=== PATIENT | male | born 1970 | race African-American/Black ===

== ENCOUNTER 2018-03-11 12:09 | Inpatient (IN) | payer MEDICARE, MEDICAID ==
--- NOTE | 2018-03-04 14:51 | HP ---
HISTORY AND PHYSICAL: DATE OF ADMISSION: 03/11/18 DATE OF OFFICE VISIT: 03/03/18 SURGEON: Patt Medeiros MD.* (DICTATED BY KYLEE CHU) PROCEDURE: Right total hip arthroplasty. CHIEF COMPLAINT: Right hip pain. HISTORY OF PRESENT ILLNESS: Mr. Medina is a 47-year-old gentleman with chronic right hip pain. X-ray showed endstage osteoarthritis. He has elected to proceed with a right total hip arthroplasty, which is scheduled for 03/11/[address] Medeiros. PAST MEDICAL HISTORY: Hypertension, hypothyroidism, mitral valve insufficiency , seizure disorder, legally blind, history of an OR, high cholesterol. PAST SURGICAL HISTORY: Hernia repair, left hip hemiarthroplasty, thyroidectomy. CURRENT MEDICATIONS: 1. Ibuprofen 600 mg as needed every 6 hours. 2. Zonisamide 100 mg 3 tabs a day. 3. Synthroid 200 mcg daily. 4. Latanoprost eye drops. 5. Alphagan eye drops twice daily. 6. Dorzolamide HCl/timolol maleate 22.3/6.8 mg/mL 1 in both eyes twice a day. ALLERGIES: No known drug allergies. FAMILY HISTORY: Denies. SOCIAL HISTORY: This is a 47-year-old gentleman. He lives alone. He does not smoke, use drugs or alcohol. REVIEW OF SYSTEMS: A complete 14-point review of systems was reviewed with the patient, it was positive for hypothyroidism and a seizure disorder. He denies a history of DVT, PE, hepatitis, HIV, or anesthesia problems. PHYSICAL EXAMINATION GENERAL: He is well developed, well nourished, in no acute distress. VITAL SIGNS: He stands 5 feet 8 inches tall, weighs 196 pounds. Blood pressure is 100/60, his heart rate is 52. HEENT: Normocephalic, atraumatic. NECK: Supple. No palpable lymph nodes. PULMONARY: The lungs are clear to auscultation bilaterally. CARDIO: Regular rate and rhythm. Strong S1, S2. ABDOMEN: Soft, nontender, and nondistended. NEUROLOGICAL: He is alert and oriented x3. Cranial nerves II through XII are intact. MUSCULOSKELETAL: Right lower extremity, the skin is intact. There are no open wounds or abrasions. He walks with an antalgic type gait favoring his right hip. He has severely decreased internal and external rotation of the right hip. 4+/5 abductor strength. He has rotation without extreme pain. 2+ dorsalis pedis pulses, intact sensation. His lower extremity muscle group strengths are intact at 5/5. ASSESSMENT AND PLAN: Mr. Medina is a 47-year-old gentleman with severe endstage osteoarthritis of his right hip. He has failed conservative management , continues to have severe daily pain with difficulty ambulating. He has elected to proceed with a right total hip arthroplasty, which is scheduled for 03/11/[address] Medeiros discussed the risks and benefits of the surgery at today's visit and all of his questions were answered. He will see Dr. Medeiros back 2 weeks after the surgery. KYLEE CHU [id number]/[facility] #: [id number] MTDD
[~2018-03-11 12:09] MED LIST: Famotidine IV* 10 MG/ML 2 ML (20 mg) IV ONE; Gabapentin CAP(*) 300 MG PO ONE
--- OUTSIDE RECORDS SUMMARY | 2018-03-11 12:18 | XMS REPORT ---
:1970 External Reference #:[id number] Author Organization [facility] Address [address] [address] Phone [phone] Care Team Providers Name Role Phone Oracio Gee MD Primary Care Physician Unavailable Payers Type Date Identification Numbers Payment Provider Subscriber Medicare Primary Effective: Policy Number: Medicare Julius Medina 2013 [id number] PayID: [id number] [address] [place] [address] Medigap Part B Effective: 2013 Policy Number: Medicaid Julius Medina [id number] PayID: [id number] [address] [place] [address] Commercial Effective: Policy Number: [employer] Julius 2011 [id number] Medicaid Adam Expires: 2013 PayID: [id number] [address] [address] [place] [address] Problems Date Description Provider Status Onset: 07/25/2011 Postablative hypothyroidism Oracio Gee M.D. Active Onset: 07/25/2011 Hyperlipidemia Oracio Gee M.D. Active Onset: 07/25/2011 Depressive disorder Oracio Gee M.D. Active Onset: 01/20/2013 Tobacco user Oracio Gee M.D. Active Onset: 01/20/2013 Essential hypertension Oracio Gee M.D. Active Onset: 05/19/2013 Obesity Oracio Gee M.D. Active Onset: 03/23/2014 Relative impotence Grace Perez M.D. Active Note: multifactorial Onset: 03/23/2014 Osteoarthritis of knee Grace Perez M.D. Active Note: patellar arthritis Onset: 11/24/2014 Impotence of organic origin Oracio Gee M.D. Active Onset: 04/22/2015 Arthralgia of the lower leg Oracio Gee M.D. 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 Active Onset: 08/04/2015 Knee pain Feroz Sorto NP Active Onset: 05/18/2016 Hypothyroidism Oracio Gee M.D. Active Onset: 01/09/2017 Other seizures Veda Uriostegui MD Active Onset: 02/27/2017 Syncope and collapse Veda Uriostegui MD Active Onset: 06/19/2017 Arthralgia of the pelvic region and Veda Uriostegui MD Active thigh Onset: 01/15/2018 Mixed hyperlipidemia Oracio Gee M.D. Active Onset: 02/10/2018 Localized, primary osteoarthritis of Patt Medeiros M.D. 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 Cigarette Use currently smokes 1/2 Pack 30 pk yr Daily ETOH Use Occasionally consumes alcohol Recreational Drug Use 2007 Formerly used Cocaine regularly Smoking Patient is a current smoker, smokes every day Recreational Drug Use 2007 Formerly used Crack Cocaine regularly Smoking Light tobacco smoker (10 or fewer cigarettes/day) Daily Caffeine Consumes on average 3 cups of regular coffee per day Daily Caffeine Consumes on average 1 liter of iced tea per day Exercise Type/Frequency Exercises sporadically General Hx Text On Unemployment/now disabled Allergies, Adverse Reactions, Alerts Date Description Reaction Status Severity Comments 10/02/2010 NKDA active Medications Medication Date Status Form Strength Qnty SIG Indications Ordering Provider Zonisamide 10/22 Active Capsules 100mg 90cap 3 tablets per G40.89 s eveline Gee M.D. Synthroid 11/24 Active Tablets 200mcg 90tab once in in E89.0 s the morning Pachikara, in the empty M.D. stomach Ibuprofen 10/03 Active Tablets 600mg 90tab take one s tablet by Pachikara, mouth twice M.D. daily as needed for severe pain Latanoprost Active Solution 0.005% 1 gtt both [place], /0000 eyes q hs MD uJan Alphagan P Active Solution 0.1% 1 gtt both [place]o, /0000 eyes bid MD Juan Dorzolamide Active Solution 22.3-6.8m 1 gtt both Arleo, HCL/Timolol /0000 g/ml eyes bid MD Juan Maleate Metoprolol 05/31 Hx Tablets 25mg 30tab 1 by mouth Oracio Succinate ER 24HR s every day Marlen, - Pt states he M.D. 02/25 is not taking /2017 this. Atenolol 08/13 Hx Tablets 25mg 30tab 1 by mouth s every day Marlen, - M.D. 05/31 Xarelto 11/07 Hx Tablets 10mg 120ta 5 tabs q 24 bs hrs Ordering - Provider 12/25 Colace 11/07 Hx Capsules 100mg 60cap 1 by mouth s twice a day Ordering - prn Provider 12/25 constipation Percocet 11/07 Hx Tablets 5-325mg 45tab 1-2 by mouth s every 4 to 6 - hours as 12/25 needed pain (no longer taking) Viagra 07/27 Hx Tablets 100mg 15tab by mouth 0.5 s or 1 tab 1h Jazminika, - before M.D. 05/18 Cialis 11/24 Hx Tablets 5mg 30tab 1 tab by 607.84 s mouth daily Marlen, - M.D. 05/18 Atorvastatin 03/23 Hx Tablets 40mg 30tab 1 tab at E78.5 [place] s bedtime Marlen - M.D. 05/19 Synthroid 03/03 Hx Tablets 175mcg 90tab 1 by mouth 244.1 s every day Joe Perez M.D. 11/24 Atorvastatin 03/03 Hx Tablets 40mg 90tab 1 tab hs 272.4 Masha s Joe Castellanos M.D. 03/23 Cialis 03/03 Hx Tablets 5mg 30tab 1-2 tab by s mouth 1 hour Chris, - before M.DCesar 04/22 as needed Nicoderm CQ 01/20 Hx Patches 14mg/24HR 30uni once daily 305.1 24HR ts Marlen - M.Cindi 03/03 Nicorette 01/20 Hx Gum 4mg 120un upto 4 times 305.1 its daily prn Joe Gee M.Cindi 03/03 Cialis 01/20 Hx Tablets 5mg 30tab 1 by mouth 1 302.72 s hour before Marlen - intercourse M.DCesar 03/03 as needed Ibuprofen 01/20 Hx Tablets 600mg 45tab tid prn V76.44 s Marlen - M.DCesar 03/03 Fenofibrate 04/09 Hx Tablets 160mg 90tab once daily s Joe Perez M.D. 03/03 Tricor 04/08 Hx Tablets 145mg 90tab 1 po daily s Joe Perez M.D. 04/09 Cialis 04/08 Hx Tablets 5mg 30tab 1/2 tab 302.72 s before the Chris - sexual M.DCesar 01/20 activity Nicoderm CQ 03/19 Hx Patches 14mg/24HR 30uni once daily 305.1 24HR ts Joe Gee M.D. 04/08 Nicorelief 03/19 Hx Gum 2mg 120un q 2 hours prn 305.1 Joe Silverio M.D. 04/08 Viagra 03/19 Hx Tablets 100mg 10tab use as 302.72 s directed Joe Gee M.D. 04/08 Cialis 03/19 Hx Tablets 5mg 1 by mouth 1 hour before Joe Gee intercourse M.DCesar 03/03 as needed Cialis 12/17 Hx Tablets 10mg 6tabs qd prn Joe Gee M.D. 03/19 Viagra 07/25 Hx Tablets 100mg 6tabs use as 302.72 directed Joe Gee M.D. 12/17 Mobic 05/09 Hx Tablets 15mg 30tab once daily 717.2 s Joe Gee M.D. 07/25 Zoloft 04/11 Hx Tablets 100mg 30tab 1/ tab daily 311 s for 1 week Marlen, - and then 1 po M.DCesar 07/28 Levothyroxine 03/08 Hx Tablets 150mcg 30tab 1 po qd Annie Joe Delatorre M.D. 03/03 Multi Vitamin 01/25 Hx Tablets 30tab 1 po qd Joe Ortez M.D. 04/08 Synthroid 01/18 Hx Tablets 125mcg 30tab 1 po qd Joe Ortez M.D. 03/08 Synthroid 01/11 Hx Tablets 100mcg 30tab 1 po qd Joe Torres M.D. 01/18 Cialis 01/10 Hx Tablets 20mg 10tab as directed 302.72 Joe Ortez M.D. 07/25 Nicoderm CQ 01/10 Hx Patches 14mg/24HR 30uni once daily 305.1 24HR ts Joe Gee M.D. 07/25 Synthroid 10/02 Hx Tablets 75mcg 30tab 1 po qd 244.1 Sanjiv E. Joe Torres M.D. 01/11 Immunizations CPT Code Status Date Vaccine Lot # [id number] Given 05/18/2016 Pneumonia Vaccine [id number] Given 08/04/2015 Influenza Virus Vaccine, Quadrivalent, Split, [id number] Preservative Free Vital Signs Date Vital Result Comment 03/03/2018 Height 68.5 inches 5'8.50" Weight 186.00 lb Heart Rate 52 /min BP Systolic 100 mmHg BP Diastolic 60 mmHg BMI (Body Mass Index) 27.9 kg/m2 02/27/2018 Height 68.5 inches 5'8.50" Weight 184.00 lb w/shoes Heart Rate 74 /min BP Systolic Sitting 110 mmHg Lue BP Diastolic Sitting 56 mmHg Lue Respiratory Rate 14 /min BMI (Body Mass Index) 27.6 kg/m2 Ejection Fraction 50-55% as of 02/2018 echo 02/26/2018 Height 68.5 inches 5'8.50" Weight 184.12 lb Heart Rate 74 /min BP Systolic 118 mmHg BP Diastolic 64 mmHg BMI (Body Mass Index) 27.6 kg/m2 02/20/2018 Height 68.5 inches 5'8.50" Weight 182.00 lb Heart Rate 76 /min BP Systolic 122 mmHg BP Diastolic 78 mmHg O2 % BldC Oximetry 97 % BMI (Body Mass Index) 27.3 kg/m2 02/10/2018 Height 68.5 inches 5'8.50" Weight 182.00 lb Heart Rate 64 /min BP Systolic 118 mmHg BP Diastolic 70 mmHg BMI (Body Mass Index) 27.3 kg/m2 01/29/2018 Weight 181.00 lb Heart Rate 63 /min BP Systolic 128 mmHg BP Diastolic 76 mmHg Body Temperature 96.4 F O2 % BldC Oximetry 98 % 01/15/2018 Height 68 inches 5'8" Weight 181.00 lb Heart Rate 63 /min BP Systolic Sitting 128 mmHg BP Diastolic Sitting 72 mmHg O2 % BldC Oximetry 98 % BMI (Body Mass Index) 27.5 kg/m2 10/22/2017 Height 68 inches 5'8" Weight 184.00 lb Heart Rate 64 /min BP Systolic 130 mmHg BP Diastolic 74 mmHg BMI (Body Mass Index) 28.0 kg/m2 07/10/2017 Height 68 inches 5'8" Weight 185.00 lb with shoes Heart Rate 56 /min BP Systolic 120 mmHg BP Diastolic 80 mmHg O2 % BldC Oximetry 98 % BMI (Body Mass Index) 28.1 kg/m2 06/19/2017 Height 68 inches 5'8" Weight 189.00 lb Heart Rate 76 /min BP Systolic Sitting 130 mmHg BP Diastolic Sitting 80 mmHg BMI (Body Mass Index) 28.7 kg/m2 05/29/2017 Height 68 inches 5'8" Weight 187.00 lb Heart Rate 71 /min BP Systolic 130 mmHg BP Diastolic 68 mmHg Body Temperature 97.1 F O2 % BldC Oximetry 98 % BMI (Body Mass Index) 28.4 kg/m2 02/27/2017 Height 68 inches 5'8" Weight 188.00 lb Heart Rate 68 /min BP Systolic Sitting 108 mmHg BP Diastolic Sitting 72 mmHg Respiratory Rate 14 /min BMI (Body Mass Index) 28.6 kg/m2 01/09/2017 Height 68 inches 5'8" Weight 188.00 lb Heart Rate 68 /min BP Systolic 114 mmHg BP Diastolic 68 mmHg Respiratory Rate 16 /min Pain Level 7 BMI (Body Mass Index) 28.6 kg/m2 01/01/2017 Height 68 inches 5'8" Weight 188.25 lb w/shoes Heart Rate 62 /min BP Systolic Sitting 138 mmHg LA reg cuff BP Diastolic Sitting 90 mmHg LA reg cuff BMI (Body Mass Index) 28.6 kg/m2 Ejection Fraction 50-55% Echo 07/11/16 12/19/2016 Weight 185.00 lb with shoes Heart Rate 56 /min BP Systolic 118 mmHg BP Diastolic 74 mmHg O2 % BldC Oximetry 96 % 08/13/2016 Height 68 inches 5'8" Weight 198.00 lb w/shoes Heart Rate 66 /min BP Systolic Sitting 122 mmHg LA reg cuff BP Diastolic Sitting 84 mmHg LA reg cuff BMI (Body Mass Index) 30.1 kg/m2 Ejection Fraction 50-55% Echo 07/11/16 08/08/2016 Height 68 inches 5'8" Weight 188.00 lb Heart Rate 57 /min BP Systolic 107 mmHg BP Diastolic 59 mmHg Body Temperature 97.2 F O2 % BldC Oximetry 98 % BMI (Body Mass Index) 28.6 kg/m2 05/18/2016 Height 68 inches 5'8" Weight 183.00 lb Heart Rate 55 /min BP Systolic Sitting 110 mmHg BP Diastolic Sitting 64 mmHg Body Temperature 97.7 F O2 % BldC Oximetry 98 % BMI (Body Mass Index) 27.8 kg/m2 12/27/2015 Height 68 inches 5'8" Weight 187.00 lb w/shoes Heart Rate 70 /min BP Systolic Sitting 122 mmHg LA reg cuff BP Diastolic Sitting 82 mmHg LA reg cuff BMI (Body Mass Index) 28.4 kg/m2 12/23/2015 Height 68 inches 5'8" Weight 183.00 lb Heart Rate 78 /min BP Systolic 100 mmHg BP Diastolic 70 mmHg Body Temperature 97.5 F O2 % BldC Oximetry 98 % BMI (Body Mass Index) 27.8 kg/m2 12/14/2015 Height 68 inches 5'8" Weight 186.00 lb Heart Rate 69 /min BP Systolic 108 mmHg BP Diastolic 58 mmHg Body Temperature 97.6 F O2 % BldC Oximetry 99 % BMI (Body Mass Index) 28.3 kg/m2 08/04/2015 Height 68 inches 5'8" Weight 203.00 lb Heart Rate 60 /min BP Systolic Sitting 138 mmHg BP Diastolic Sitting 86 mmHg Body Temperature 97.8 F O2 % BldC Oximetry 98 % BMI (Body Mass Index) 30.9 kg/m2 07/27/2015 Height 68 inches 5'8" Weight 203.00 lb Heart Rate 58 /min BP Systolic Sitting 128 mmHg BP Diastolic Sitting 80 mmHg Respiratory Rate 13 /min Body Temperature 98.0 F O2 % BldC Oximetry 97 % BMI (Body Mass Index) 30.9 kg/m2 04/22/2015 Height 68 inches 5'8" Weight 200.00 lb Heart Rate 70 /min BP Systolic Sitting 128 mmHg BP Diastolic Sitting 80 mmHg Body Temperature 98.7 F O2 % BldC Oximetry 98 % BMI (Body Mass Index) 30.4 kg/m2 11/24/2014 Height 68 inches 5'8" Weight 201.00 lb Heart Rate 54 /min BP Systolic Standing 120 mmHg BP Diastolic Standing 78 mmHg O2 % BldC Oximetry 98 % BMI (Body Mass Index) 30.6 kg/m2 03/23/2014 Height 68 inches 5'8" Weight 196.00 lb Heart Rate 64 /min BP Systolic Sitting 110 mmHg BP Diastolic Sitting 68 mmHg BMI (Body Mass Index) 29.8 kg/m2 05/19/2013 Height 68 inches 5'8" Weight 213.25 lb Heart Rate 70 /min BP Systolic Sitting 120 mmHg BP Diastolic Sitting 82 mmHg O2 % BldC Oximetry 96 % BMI (Body Mass Index) 32.4 kg/m2 03/03/2013 Height 68 inches 5'8" Weight 212.00 lb Heart Rate 76 /min BP Systolic 122 mmHg BP Diastolic 92 mmHg BMI (Body Mass Index) 32.2 kg/m2 03/03/2013 Weight 212.00 lb Heart Rate 76 /min BP Systolic Sitting 160 mmHg BP Diastolic Sitting 120 mmHg 01/20/2013 Weight 211.00 lb Heart Rate 78 /min BP Systolic Sitting 158 mmHg BP Diastolic Sitting 102 mmHg 04/08/2012 Height 68 inches 5'8" Weight 191.00 lb Heart Rate 68 /min BP Systolic Sitting 130 mmHg BP Diastolic Sitting 92 mmHg BMI (Body Mass Index) 29.0 kg/m2 03/19/2012 Height 68 inches 5'8" Weight 193.00 lb Heart Rate 72 /min BP Systolic Sitting 112 mmHg BP Diastolic Sitting 70 mmHg BMI (Body Mass Index) 29.3 kg/m2 12/18/2011 Height 68 inches 5'8" Weight 189.00 lb Heart Rate 60 /min BP Systolic Sitting 112 mmHg L BP Diastolic Sitting 72 mmHg L BMI (Body Mass Index) 28.7 kg/m2 07/25/2011 Height 68 inches 5'8" Weight 189.00 lb Heart Rate 72 /min BP Systolic 130 mmHg BP Diastolic 70 mmHg BMI (Body Mass Index) 28.7 kg/m2 06/08/2011 Height 68 inches 5'8" Weight 192.00 lb Heart Rate 54 /min BP Systolic 118 mmHg BP Diastolic 73 mmHg BMI (Body Mass Index) 29.2 kg/m2 05/09/2011 Weight 188.00 lb Heart Rate 62 /min BP Systolic Sitting 148 mmHg BP Diastolic Sitting 72 mmHg 04/11/2011 Weight 191.00 lb Heart Rate 68 /min BP Systolic Sitting 126 mmHg BP Diastolic Sitting 84 mmHg 01/10/2011 Height 69 inches 5'9" Weight 191.00 lb Heart Rate 66 /min BP Systolic Sitting 110 mmHg BP Diastolic Sitting 76 mmHg BMI (Body Mass Index) 28.2 kg/m2 12/20/2010 Height 67 inches 5'7" Weight 195.00 lb Heart Rate 80 /min BP Systolic Sitting 122 mmHg BP Diastolic Sitting 60 mmHg BMI (Body Mass Index) 30.5 kg/m2 10/02/2010 Height 67 inches 5'7" Weight 185.00 lb Heart Rate 56 /min BP Systolic Sitting 122 mmHg BP Diastolic Sitting 78 mmHg O2 % BldC Oximetry 98 % BMI (Body Mass Index) 29.0 kg/m2 Results Test Date Test Result H/L Range Note Comp Metabolic Panel 02/25/2018 Sodium 139 mmol/L 139-145 Potassium 4.0 mmol/L 3.5-5.0 Chloride 110 mmol/L 101-111 Co2 Carbon Dioxide 24 mmol/L 22-32 Anion Gap 5 mmol/L 2-11 Glucose 93 mg/dL 70-100 Blood Urea Nitrogen 13 mg/dL 6-24 Creatinine 1.36 mg/dL High 0.67-1.17 BUN/Creatinine Ratio 9.6 8-20 Calcium 8.9 mg/dL 8.6-10.3 Total Protein 6.7 g/dL 6.4-8.9 Albumin 4.0 g/dL 3.2-5.2 Globulin 2.7 g/dL 2-4 Albumin/Globulin Ratio 1.5 1-3 Total Bilirubin 0.40 mg/dL 0.2-1.0 Alkaline Phosphatase 80 U/L 34-104 Alt 10 U/L 7-52 Ast 13 U/L 13-39 Egfr Non- 55.7 >60 Egfr 71.6 >60 1 Laboratory test finding 02/25/2018 TSH (Thyroid Stim Horm) 2.88 mcIU/mL 0.34-5.60 Lipid Profile 01/15/2018 Triglycerides 64 mg/dL 2 (Trig/Chol/HDL) Cholesterol 231 mg/dL 3 HDL Cholesterol 62.4 mg/dL 4 LDL Cholesterol 156 mg/dL 5 Comp Metabolic Panel 01/15/2018 Sodium 139 mmol/L 139-145 Potassium 4.0 mmol/L 3.5-5.0 Chloride 106 mmol/L 101-111 Co2 Carbon Dioxide 27 mmol/L 22-32 Anion Gap 6 mmol/L 2-11 Glucose 90 mg/dL 70-100 Blood Urea Nitrogen 20 mg/dL 6-24 Creatinine 1.23 mg/dL High 0.67-1.17 BUN/Creatinine Ratio 16.3 8-20 Calcium 9.5 mg/dL 8.6-10.3 Total Protein 7.4 g/dL 6.4-8.9 Albumin 4.4 g/dL 3.2-5.2 Globulin 3.0 g/dL 2-4 Albumin/Globulin Ratio 1.5 1-3 Total Bilirubin 0.80 mg/dL 0.2-1.0 Alkaline Phosphatase 84 U/L 34-104 Alt 10 U/L 7-52 Ast 13 U/L 13-39 Egfr Non- 62.5 >60 Egfr 80.4 >60 6 Laboratory test 01/15/2018 TSH (Thyroid Stim Horm) 3.58 mcIU/mL 0.34- 5.60 finding Lipid Profile 05/29/2017 Triglycerides 81 mg/dL 7, 8 (Trig/Chol/HDL) Cholesterol 231 mg/dL 7, 9 HDL Cholesterol 59.5 mg/dL 7, 10 LDL Cholesterol 155 mg/dL 7, 11 Comp Metabolic Panel 05/29/2017 Sodium 139 mmol/L 133-145 7 Potassium 4.1 mmol/L 3.5-5.0 7 Chloride 105 mmol/L 101-111 7 Co2 Carbon Dioxide 30 mmol/L 22-32 7 Anion Gap 4 mmol/L 2-11 7 Glucose 80 mg/dL 70-100 7 Blood Urea Nitrogen 12 mg/dL 6-24 7 Creatinine 1.27 mg/dL High 0.67-1.17 7 BUN/Creatinine Ratio 9.4 8-20 7 Calcium 9.1 mg/dL 8.6-10.3 7 Total Protein 7.2 g/dL 6.4-8.9 7 Albumin 4.3 g/dL 3.2-5.2 7 Globulin 2.9 g/dL 2-4 7 Albumin/Globulin Ratio 1.5 1-3 7 Total Bilirubin 0.80 mg/dL 0.2-1.0 7 Alkaline Phosphatase 89 U/L 34-104 7 Alt 14 U/L 7-52 7 Ast 16 U/L 13-39 7 Egfr Non- 60.3 >60 7 Egfr 77.5 >60 7, 12 Laboratory test 05/29/2017 TSH (Thyroid Stim 3.33 mcIU/mL 0.34-5.60 7, 13 finding Horm) Lipid Profile 12/19/2016 Triglycerides 50 mg/dL 14, 15 (Trig/Chol/HDL) Cholesterol 230 mg/dL 14, 16 HDL Cholesterol 53.8 mg/dL 14, 17 LDL Cholesterol 166 mg/dL 14, 18 Comp Metabolic Panel 12/19/2016 Sodium 138 mmol/L 133-145 14 Potassium 4.3 mmol/L 3.5-5.0 14 Chloride 107 mmol/L 101-111 14 Co2 Carbon Dioxide 27 mmol/L 22-32 14 Anion Gap 4 mmol/L 2-11 14 Glucose 87 mg/dL 70-100 14 Blood Urea Nitrogen 14 mg/dL 6-24 14 Creatinine 1.30 mg/dL High 0.67-1.17 14 BUN/Creatinine Ratio 10.8 8-20 14 Calcium 9.1 mg/dL 8.6-10.3 14 Total Protein 6.9 g/dL 6.4-8.9 14 Albumin 4.2 g/dL 3.2-5.2 14 Globulin 2.7 g/dL 2-4 14 Albumin/Globulin Ratio 1.6 1-3 14 Total Bilirubin 0.50 mg/dL 0.2-1.0 14 Alkaline Phosphatase 83 U/L 34-104 14 Alt 12 U/L 7-52 14 Ast 15 U/L 13-39 14 Egfr Non- 58.9 >60 14 Egfr 75.8 >60 14, 19 Laboratory test 12/19/2016 TSH (Thyroid Stim 3.45 mcIU/mL 0.34-5.60 14, 20 finding Horm) Lipid Profile 08/08/2016 Triglycerides 75 mg/dL 21, 22 (Trig/Chol/HDL) Cholesterol 238 mg/dL 21, 23 HDL Cholesterol 58.9 mg/dL 21, 24 LDL Cholesterol 164 mg/dL 21, 25 Comp Metabolic Panel 05/18/2016 Sodium 138 mmol/L 133-145 26 Potassium 3.9 mmol/L 3.5-5.0 26 Chloride 106 mmol/L 101-111 26 Co2 Carbon Dioxide 26 mmol/L 22-32 26 Anion Gap 6 mmol/L 2-11 26 Glucose 87 mg/dL 70-100 26 Blood Urea Nitrogen 18 mg/dL 6-24 26 Creatinine 1.22 mg/dL High 0.67-1.17 26 BUN/Creatinine Ratio 14.8 8-20 26 Calcium 8.7 mg/dL 8.6-10.3 26 Total Protein 6.7 g/dL 6.4-8.9 26 Albumin 4.0 g/dL 3.2-5.2 26 Globulin 2.7 g/dL 2-4 26 Albumin/Globulin Ratio 1.5 1-3 26 Total Bilirubin 0.80 mg/dL 0.2-1.0 26 Alkaline Phosphatase 79 U/L 34-104 26 Alt 13 U/L 7-52 26 Ast 24 U/L 13-39 26 Egfr Non- 63.4 >60 26 Egfr 81.5 >60 26, 27 Lipid Profile (Trig/Chol/HDL) 05/18/2016 Triglycerides 82 mg/dL 26, 28 Cholesterol 222 mg/dL 26, 29 HDL Cholesterol 56.9 mg/dL 26, 30 LDL Cholesterol 149 mg/dL 26, 31 Laboratory test 05/18/2016 TSH (Thyroid Stim 6.71 mcIU/mL High 0.34-5.60 26, 32 finding Horm) PSA Screening 2.269 ng/mL 0-4.000 26, 33 CBC Auto Diff 02/08/2016 White Blood Count 4.0 10^3/uL 3.5-10.8 Red Blood Count 4.24 10^6/uL 4.0-5.4 Hemoglobin 13.1 g/dL Low 14.0-18.0 Hematocrit 40 % Low 42-52 Mean Corpuscular Volume 94 fL 80-94 Mean Corpuscular Hemoglobin 31 pg 27-31 Mean Corpuscular HGB Conc 33 g/dL 31-36 Red Cell Distribution Width 15 % 10.5-15 Platelet Count 210 10^3/uL 150-450 Mean Platelet Volume 8 um3 7.4-10.4 Abs Neutrophils 2.9 10^3/uL 1.5-7.7 Abs Lymphocytes 0.6 10^3/uL Low 1.0-4.8 Abs Monocytes 0.3 10^3/uL 0-0.8 Abs Eosinophils 0.1 10^3/uL 0-0.6 Abs Basophils 0.1 10^3/uL 0-0.2 Abs Nucleated RBC 0 10^3/uL Granulocyte % 73.6 % 38-83 Lymphocyte % 14.5 % Low 25-47 Monocyte % 8.2 % 1-9 Eosinophil % 1.5 % 0-6 Basophil % 2.2 % High 0-2 Nucleated Red Blood Cells % 0.1 Laboratory test finding 02/08/2016 Troponin-I (TnI) 0.01 ng/mL <0.03 34 CKMB 02/08/2016 CKMB ng/mL 1.6 ng/mL 0.6-6.3 Comp Metabolic Panel 02/08/2016 Sodium 135 mmol/L 133-145 Potassium 4.0 mmol/L 3.5-5.0 Chloride 105 mmol/L 101-111 Co2 Carbon Dioxide 22 mmol/L 22-32 Anion Gap 8 mmol/L 2-11 Glucose 104 mg/dL High 70-100 Blood Urea Nitrogen 12 mg/dL 6-24 Creatinine 1.22 mg/dL High 0.67-1.17 BUN/Creatinine Ratio 9.8 8-20 Calcium 9.5 mg/dL 8.6-10.3 Total Protein 7.7 g/dL 6.4-8.9 Albumin 4.5 g/dL 3.2-5.2 Globulin 3.2 g/dL 2-4 Albumin/Globulin Ratio 1.4 1-3 Total Bilirubin 0.60 mg/dL 0.2-1.0 Alkaline Phosphatase 100 U/L 34-104 Alt 11 U/L 7-52 Ast 14 U/L 13-39 Egfr Non- 63.7 >60 Egfr 81.9 >60 35 Laboratory test finding 02/08/2016 Creatine Kinase(CK) 96 U/L 10-223 Inr/Protime 02/08/2016 Inr 1.02 0.89-1.11 Laboratory test finding 02/08/2016 Partial Thrombo Time 24.0 seconds Low 26.0-36.3 PTT Lactic Acid 3.2 mmol/L High 0.5-2.0 36 Comp Metabolic Panel 12/16/2015 Sodium 136 mmol/L 133-145 37 Potassium 4.1 mmol/L 3.5-5.0 37 Chloride 105 mmol/L 101-111 37 Co2 Carbon Dioxide 27 mmol/L 22-32 37 Anion Gap 4 mmol/L 2-11 37 Glucose 88 mg/dL 70-100 37 Blood Urea Nitrogen 10 mg/dL 6-24 37 Creatinine 1.11 mg/dL 0.67-1.17 37 BUN/Creatinine Ratio 9.0 8-20 37 Calcium 9.2 mg/dL 8.6-10.3 37 Total Protein 6.9 g/dL 6.4-8.9 37 Albumin 4.1 g/dL 3.2-5.2 37 Globulin 2.8 g/dL 2-4 37 Albumin/Globulin Ratio 1.5 1-3 37 Total Bilirubin 0.70 mg/dL 0.2-1.0 37 Alkaline Phosphatase 130 U/L High 34-104 37 Alt 12 U/L 7-52 37 Ast 14 U/L 13-39 37 Egfr Non- 71.0 >60 37 Egfr 91.3 >60 37, 38 Lipid Profile (Trig/Chol/HDL) 12/16/2015 Triglycerides 101 mg/dL 37, 39 Cholesterol 216 mg/dL 37, 40 HDL Cholesterol 49.5 mg/dL 37, 41 LDL Cholesterol 146 mg/dL 37, 42 Laboratory test 12/16/2015 TSH (Thyroid Stim 6.89 ?IU/mL High 0.34-5.60 37, 43 finding Horm) Comp Metabolic Panel 07/27/2015 Sodium 137 mmol/L 133-145 Potassium 4.1 mmol/L 3.5-5.0 Chloride 106 mmol/L 101-111 Co2 Carbon Dioxide 28 mmol/L 22-32 Anion Gap 3 mmol/L 2-11 Glucose 87 mg/dL 70-100 Blood Urea Nitrogen 14 mg/dL 6-24 Creatinine 1.23 mg/dL High 0.67-1.17 BUN/Creatinine Ratio 11.4 8-20 Calcium 9.2 mg/dL 8.6-10.3 Total Protein 7.1 g/dL 6.4-8.9 Albumin 4.4 g/dL 3.2-5.2 Globulin 2.7 g/dL 2-4 Albumin/Globulin Ratio 1.6 1-3 Total Bilirubin 0.80 mg/dL 0.2-1.0 Alkaline Phosphatase 92 U/L 34-104 Alt 16 U/L 7-52 Ast 17 U/L 13-39 Egfr Non- 63.1 >60 Egfr 81.1 >60 44 Lipid Profile (Trig/Chol/HDL) 07/27/2015 Triglycerides 77 mg/dL 45 Cholesterol 239 mg/dL 46 HDL Cholesterol 55.2 mg/dL 47 LDL Cholesterol 168 mg/dL 48 Laboratory test finding 07/27/2015 TSH (Thyroid Stim Horm) 2.77 ?IU/mL 0.34-5.60 Comp Metabolic Panel 04/19/2015 Sodium 136 mmol/L 133-145 Potassium 3.9 mmol/L 3.5-5.0 Chloride 106 mmol/L 101-111 Co2 Carbon Dioxide 25 mmol/L 22-32 Anion Gap 5 mmol/L 2-11 Glucose 91 mg/dL 70-100 Blood Urea Nitrogen 10 mg/dL 6-24 Creatinine 1.17 mg/dL 0.67-1.17 BUN/Creatinine Ratio 8.5 8-20 Calcium 9.0 mg/dL 8.6-10.3 Total Protein 7.1 g/dL 6.4-8.9 Albumin 4.3 g/dL 3.2-5.2 Globulin 2.8 g/dL 2-4 Albumin/Globulin Ratio 1.5 1-3 Total Bilirubin 0.70 mg/dL 0.2-1.0 Alkaline Phosphatase 90 U/L 34-104 Alt 14 U/L 7-52 Ast 16 U/L 13-39 Egfr Non- 66.8 >60 Egfr 85.9 >60 49 Lipid Profile (Trig/Chol/HDL) 04/19/2015 Triglycerides 77 mg/dL 50 Cholesterol 228 mg/dL 51 HDL Cholesterol 58.6 mg/dL 52 LDL Cholesterol 154 mg/dL 53 Laboratory test 11/15/2014 TSH (Thyroid 6.60 IU/mL High 0.34-5.60 37, 54 finding Stimulating Horm) Comp Metabolic Panel 11/15/2014 Sodium 137 mmol/L 133-145 37 Potassium 3.9 mmol/L 3.5-5.0 37 Chloride 106 mmol/L 101-111 37 Co2 Carbon Dioxide 25 mmol/L 22-32 37 Anion Gap 6 mmol/L 2-11 37 Glucose 88 mg/dL 70-100 37 Blood Urea Nitrogen 8 mg/dL 6-24 37 Creatinine 1.24 mg/dL High 0.67-1.17 37 BUN/Creatinine Ratio 6.5 Low 8-20 37 Calcium 9.0 mg/dL 8.6-10.3 37 Total Protein 6.8 g/dL 6.4-8.9 37 Albumin 4.2 g/dL 3.2-5.2 37 Globulin 2.6 g/dL 2-4 37 Albumin/Globulin Ratio 1.6 1-3 37 Total Bilirubin 0.80 mg/dL 0.2-1.0 37 Alkaline Phosphatase 94 U/L 34-104 37 Alt 12 U/L 7-52 37 Ast 16 U/L 13-39 37 Egfr Non- 62.8 >60 37 Egfr 80.7 >60 37, 55 Lipid Profile (Trig/Chol/HDL) 11/15/2014 Triglycerides 79 mg/dL 37, 56 Cholesterol 235 mg/dL 37, 57 HDL Cholesterol 55.4 mg/dL 37, 58 LDL Cholesterol 164 mg/dL 37, 59 Laboratory test 11/15/2014 PSA Screening 2.348 ng/mL 0-4.000 37, 60 finding Laboratory test 03/23/2014 TSH (Thyroid 6.12 IU/mL High 0.34-5.60 finding Stimulating Horm) T4 9.26 g/dL 6.09-12.23 Free T3 2.50 pg/mL 2.5-3.9 Comp Metabolic Panel 05/19/2013 Sodium 139 mmol/L 133-145 Potassium 4.1 mmol/L 3.5-5.0 Chloride 104 mmol/L 101-111 Co2 Carbon Dioxide 28.0 mmol/L 22-32 Anion Gap 7.0 mmol/L 2-11 Glucose 86 mg/dL 70-100 Blood Urea Nitrogen 8 mg/dL 6-24 Creatinine 1.30 mg/dL 0.50-1.40 BUN/Creatinine Ratio 6.2 Low 8-20 Calcium 9.6 mg/dL 8.1-9.9 Total Protein 6.9 g/dL 6.2-8.1 Albumin 4.3 g/dL 3.6-5.4 Globulin 2.6 g/dL 2-4 Albumin/Globulin Ratio 1.7 1-3 Total Bilirubin 1.1 mg/dL 0.4-1.5 Alkaline Phosphatase 100 U/L 30-110 Alt 20 U/L 14-54 Ast 18 U/L 12-42 Egfr Non- 59.7 >60 Egfr 76.8 >60 61 Lipid Profile (Trig/Chol/HDL) 05/19/2013 Triglycerides 98 mg/dL 40-200 Cholesterol 275 mg/dL High Less than 200 HDL Cholesterol 56 mg/dL 40-60 62 Cholesterol/HDL Ratio 4.9 Average High 1-4.44 LDL Cholesterol 199.4 High Less Than 100 63 Laboratory test 05/19/2013 TSH (Thyroid Stimulating 5.24 miu/mL 0.34- 5.60 finding Horm) Laboratory test 02/06/2013 TSH (Thyroid Stimulating 5.32 miu/mL 0.34- 5.60 64 finding Horm) Lipid Profile 02/06/2013 Triglycerides 112 mg/dL 40-200 (Trig/Chol/HDL) Cholesterol 293 mg/dL High Less than 200 HDL Cholesterol 52 mg/dL 40-60 65 Cholesterol/HDL Ratio 5.6 Average High 1-4.44 LDL Cholesterol 218.6 mg/dL High Less Than 100 66 Laboratory test finding 02/06/2013 PSA Screening 2.1 ng/mL 0-4.0 67 Comp Metabolic Panel 02/06/2013 Sodium 137 mmol/L 133-145 Potassium 4.2 mmol/L 3.5-5.0 Chloride 102 mmol/L 101-111 Co2 Carbon Dioxide 29.0 mmol/L 22-32 Anion Gap 6.0 mmol/L 2-11 Glucose 90 mg/dL 70-100 Blood Urea Nitrogen 10 mg/dL 6-24 Creatinine 1.40 mg/dL 0.50-1.40 BUN/Creatinine Ratio 7.1 Low 8-20 Calcium 9.6 mg/dL 8.1-9.9 Total Protein 6.6 g/dL 6.2-8.1 Albumin 4.2 g/dL 3.6-5.4 Globulin 2.4 g/dL 2-4 Albumin/Globulin Ratio 1.8 1-3 Total Bilirubin 1.3 mg/dL 0.4-1.5 Alkaline Phosphatase 100 U/L 30-110 Alt 26 U/L 14-54 Ast 22 U/L 12-42 Egfr Non- 55.1 >60 Egfr 70.8 >60 68 FSH And LH 04/08/2012 FSH 2.26 MIU/ML 69 Lutenizing Hormone 3.51 MIU/ML 70 Laboratory test finding 04/08/2012 Prolactin 6.01 NG/ML 1.0-20.0 TSH 3.77 MIU/ML 0.34-5.60 Thyroxine Free 1.09 ng/dL 0.61-1.24 Testosterone Free & Total 04/08/2012 Free Testosterone 19 ng/dL 9-30 71 Testosterone, Total Bioavail 04/08/2012 Total Testosterone 762 ng/dL 240- 950 72 Bioavailable Testosterone 175 ng/dL 61-213 73 Lipid Profile (Trig/Chol/HDL) 03/19/2012 Triglyceride 73 mg/dL 40-200 Cholesterol 252 mg/dL High Less Than 200 74 High Density Lipoprotein 55 mg/dL 40-60 75 Cholesterol/HDL Ratio 4.58 AVERAGE 1-4.97 Low Density Lipoprotein 182 mg/dL High Less Than 100 76 Testosterone Free & Total 03/19/2012 Free Testosterone 37 ng/dL 9-30 77 Total Testosterone 1010 ng/dL 240-950 78 Laboratory test finding 12/18/2011 TSH 3.44 MIU/ML 0.34-5.60 Lipid Panel - [facility] 12/18/2011 CPK (Creatine Kinase) 91 U/L 0-200 Comp Metabolic Panel 12/18/2011 Sodium 137 mmol/L 135-145 Potassium 4.6 mmol/L 3.5-5.0 Chloride 101 mmol/L 101-111 Co2 (Carbon Dioxide) 30.0 mmol/L 22-32 Anion Gap 6.0 mmol/L 2-11 79 Glucose 82 mg/dL 70-100 BUN 11 mg/dL 6-24 Creatinine 1.3 mg/dL 0.50-1.40 One Over Creatinine 0.76 BUN/Creatinine Ratio 8.5 8-20 Calcium 9.1 mg/dL 8.1-9.9 Total Protein 7.1 GM/DL 6.2-8.1 Albumin 4.2 GM/DL 3.6-5.4 Globulin 2.9 GM/DL 2-4 Albumin/Globulin Ratio 1.4 1-3 Bilirubin Total 1.0 mg/dL 0.4-1.5 80 Alkaline Phosphatase 90 U/L 39-117 Alt (SGPT) 30 U/L 17-63 Ast (Sgot) 25 U/L 12-42 eGFR Non- 60.2 > 60 eGFR 77.5 > 60 81 Laboratory test finding 12/18/2011 Lipase 32 U/L 22-51 Laboratory test finding 04/11/2011 Thyroxine Free 1.19 ng/dL 0.61-1.24 TSH 4.01 MIU/ML 0.34-5.60 Lipid Profile (Trig/Chol/HDL) 03/07/2011 Triglyceride 90 mg/dL 40-200 Cholesterol 222 mg/dL High Less Than 200 82 High Density Lipoprotein 55 mg/dL 40-60 83 Cholesterol/HDL Ratio 4.04 AVERAGE 1-4.97 Low Density Lipoprotein 149 mg/dL High Less Than 100 84 Laboratory test finding 03/07/2011 TSH 7.21 MIU/ML High 0.34-5.60 Thyroxine Free 1.13 ng/dL 0.61-1.24 Laboratory test finding 01/10/2011 TSH 13.70 MIU/ML High 0.34-5.60 CBC Auto Diff 01/10/2011 White Blood Count 3.8 CUMM Low 4.8-10.8 Red Cell Count 4.51 CUMM Low 4.6-6.2 Hemoglobin 14.7 g/dL 14.0-18.0 Hematocrit 43 % 42-52 Mean Corpuscular Volume 96 um3 High 80-94 Mean Corpuscular Hemoglob 33 pg High 27-31 Mean Corpuscular HGB Cone 34 g/dL 32-36 Redcell Distribution WDTH 14 % 10.5-15 Platelet Count 190 CUMM 150-450 Mean Platelet Volume 9.4 um3 7.4-10.4 Gran % 47.1 % 38-83 Lymph % 39.2 % 25-47 Mononuclear % 10.7 % High 1-9 Eosinophil % 2.1 % 0-6 Basophil % 0.9 % 0-2 Abs Lymphs 1.5 1.0-4.8 Abs Mononuclear 0.4 0-0.8 Absolute Neutrophil Count 1.8 1.5-7.7 Abs Eosinophils 0.1 0-0.6 Abs Basophils 0 0-0.2 Iron & Iron Binding Capacity 01/02/2011 Iron Total 72 g/dL 45-182 Unsaturated Iron Binding 237 g/dL Total Iron Binding Capacity 309 g/dL 250-450 % Iron Saturation 23 % 15-55 CBC With Electronic Diff 12/20/2010 White Blood Count 4.9 CUMM 4.8-10.8 Red Cell Count 4.17 CUMM Low 4.6-6.2 Hemoglobin 13.8 g/dL Low 14.0-18.0 Hematocrit 40 % Low 42-52 Mean Corpuscular Volume 96 um3 High 80-94 Mean Corpuscular Hemoglob 33 pg High 27-31 Mean Corpuscular HGB Cone 34 g/dL 32-36 Redcell Distribution WDTH 14 % 10.5-15 Platelet Count 182 CUMM 150-450 Mean Platelet Volume 9.4 um3 7.4-10.4 Gran % 54.6 % 38-83 Lymph % 28.2 % 25-47 Mononuclear % 13.1 % High 1-9 Eosinophil % 2.6 % 0-6 Basophil % 1.5 % 0-2 Abs Lymphs 1.4 1.0-4.8 Abs Mononuclear 0.6 0-0.8 Absolute Neutrophil Count 2.7 1.5-7.7 Abs Eosinophils 0.1 0-0.6 Abs Basophils 0.1 0-0.2 Laboratory test finding 12/20/2010 PSA Screening 1.51 NG/ML 0-4 85 Comp Metabolic Panel 12/20/2010 Sodium 140 mmol/L 135-145 Potassium 3.9 mmol/L 3.5-5.0 Chloride 107 mmol/L 101-111 Co2 (Carbon Dioxide) 28.0 mmol/L 22-32 Anion Gap 5.0 mmol/L 2-11 86 Glucose 58 mg/dL Low 70-100 BUN 11 mg/dL 6-24 Creatinine 1.20 mg/dL 0.50-1.40 One Over Creatinine 0.80 BUN/Creatinine Ratio 9.2 8-20 Calcium 9.2 mg/dL 8.1-9.9 Total Protein 6.9 GM/DL 6.2-8.1 Albumin 4.2 GM/DL 3.6-5.4 Globulin 2.7 GM/DL 2-4 Albumin/Globulin Ratio 1.6 1-3 Bilirubin Total 1.1 mg/dL 0.4-1.5 87 Alkaline Phosphatase 70 U/L 39-117 Alt (SGPT) 19 U/L 17-63 Ast (Sgot) 27 U/L 12-42 eGFR Non- 66.4 > 60 eGFR 85.4 > 60 88 1 Because ethnic data is not always readily available, this report includes an eGFR for both -Americans and non- Americans. The National Kidney Disease Education Program (NKDEP) does not endorse the use of the MDRD equation for patients that are not between the ages of 18 and 70, are , have extremes of body size, muscle mass, or nutritional status, or are non- or non-. According to the National Kidney Foundation, irrespective of diagnosis, the stage of the disease is based on the level of kidney function: Stage Description GFR(mL/min/1.73 m(2)) 1 Kidney damage with normal or decreased GFR 90 2 Kidney damage with mild decrease in GFR 60-89 3 Moderate decrease in GFR 30-59 4 Severe decrease in GFR 15-29 5 Kidney failure <15 (or dialysis) 2 Desirable: <150 Borderline High: 150-199 High: 200-499 Very High: >500 3 Desirable: <200 Borderline High: 200-239 High: >239 4 Low: <40 Desirable: 40-60 High: >60 5 Desirable: <100 Near Optimal: 100-129 Borderline High: 130-159 High: 160-189 Very High: >189 6 Because ethnic data is not always readily available, this report includes an eGFR for both -Americans and non- Americans. The National Kidney Disease Education Program (NKDEP) does not endorse the use of the MDRD equation for patients that are not between the ages of 18 and 70, are , have extremes of body size, muscle mass, or nutritional status, or are non- or non-. According to the National Kidney Foundation, irrespective of diagnosis, the stage of the disease is based on the level of kidney function: Stage Description GFR(mL/min/1.73 m(2)) 1 Kidney damage with normal or decreased GFR 90 2 Kidney damage with mild decrease in GFR 60-89 3 Moderate decrease in GFR 30-59 4 Severe decrease in GFR 15-29 5 Kidney failure <15 (or dialysis) 7 FASTING 10 HOUR 8 Desirable <150 Borderline high 150-199 High 200-499 Very High >500 9 Desirable <200 Borderline high 200-239 High >239 10 Low <40 Desirable: 40-60 High: >60 11 Desirable: <100 mg/dL Near Optimal: 100-129 mg/dL Borderline High: 130-159 mg/dL High: 160-189 mg/dL Very High: >189 mg/dL 12 Because ethnic data is not always readily available, this report includes an eGFR for both -Americans and non- Americans. The National Kidney Disease Education Program (NKDEP) does not endorse the use of the MDRD equation for patients that are not between the ages of 18 and 70, are , have extremes of body size, muscle mass, or nutritional status, or are non- or non-. According to the National Kidney Foundation, irrespective of diagnosis, the stage of the disease is based on the level of kidney function: Stage Description GFR(mL/min/1.73 m(2)) 1 Kidney damage with normal or decreased GFR 90 2 Kidney damage with mild decrease in GFR 60-89 3 Moderate decrease in GFR 30-59 4 Severe decrease in GFR 15-29 5 Kidney failure <15 (or dialysis) 13 FASTING 10 HOUR 14 [id number] 15 Desirable <150 Borderline high 150-199 High 200-499 Very High >500 16 Desirable <200 Borderline high 200-239 High >239 17 Low <40 Desirable: 40-60 High: >60 18 Desirable: <100 mg/dL Near Optimal: 100-129 mg/dL Borderline High: 130-159 mg/dL High: 160-189 mg/dL Very High: >189 mg/dL 19 Because ethnic data is not always readily available, this report includes an eGFR for both -Americans and non- Americans. The National Kidney Disease Education Program (NKDEP) does not endorse the use of the MDRD equation for patients that are not between the ages of 18 and 70, are , have extremes of body size, muscle mass, or nutritional status, or are non- or non-. According to the National Kidney Foundation, irrespective of diagnosis, the stage of the disease is based on the level of kidney function: Stage Description GFR(mL/min/1.73 m(2)) 1 Kidney damage with normal or decreased GFR 90 2 Kidney damage with mild decrease in GFR 60-89 3 Moderate decrease in GFR 30-59 4 Severe decrease in GFR 15-29 5 Kidney failure <15 (or dialysis) 20 [id number] 21 FASTING 10 HOUR 22 Desirable <150 Borderline high 150-199 High 200-499 Very High >500 23 Desirable <200 Borderline high 200-239 High >239 24 Low <40 Desirable: 40-60 High: >60 25 Desirable: <100 mg/dL Near Optimal: 100-129 mg/dL Borderline High: 130-159 mg/dL High: 160-189 mg/dL Very High: >189 mg/dL 26 [id number] 27 Because ethnic data is not always readily available, this report includes an eGFR for both -Americans and non- Americans. The National Kidney Disease Education Program (NKDEP) does not endorse the use of the MDRD equation for patients that are not between the ages of 18 and 70, are , have extremes of body size, muscle mass, or nutritional status, or are non- or non-. According to the National Kidney Foundation, irrespective of diagnosis, the stage of the disease is based on the level of kidney function: Stage Description GFR(mL/min/1.73 m(2)) 1 Kidney damage with normal or decreased GFR 90 2 Kidney damage with mild decrease in GFR 60-89 3 Moderate decrease in GFR 30-59 4 Severe decrease in GFR 15-29 5 Kidney failure <15 (or dialysis) 28 Desirable <150 Borderline high 150-199 High 200-499 Very High >500 29 Desirable <200 Borderline high 200-239 High >239 30 Low <40 Desirable: 40-60 High: >60 31 Desirable: <100 mg/dL Near Optimal: 100-129 mg/dL Borderline High: 130-159 mg/dL High: 160-189 mg/dL Very High: >189 mg/dL 32 [id number] 33 Serum levels of PSA measured using the [employer] immunoassay should not be interpreted as absolute evidence of the presence or absence of disease. The PSA value should be used in conjunction with other pertinent clinical diagnostic procedures. The values obtained with different assay methods or kits cannot be used interchangeably. 34 Reference Range and Interpretation: TnI (ng/mL) Interpretation Less Than 0.03 ng/mL Not supportive of diagnosis of NV 0.03 - 0.50 ng/mL Indeterminate: suggest serial studies if clinically indicated. Greater than 0.5 ng/mL Consistent with diagnosis of NV 35 Because ethnic data is not always readily available, this report includes an eGFR for both -Americans and non- Americans. The National Kidney Disease Education Program (NKDEP) does not endorse the use of the MDRD equation for patients that are not between the ages of 18 and 70, are , have extremes of body size, muscle mass, or nutritional status, or are non- or non-. According to the National Kidney Foundation, irrespective of diagnosis, the stage of the disease is based on the level of kidney function: Stage Description GFR(mL/min/1.73 m(2)) 1 Kidney damage with normal or decreased GFR 90 2 Kidney damage with mild decrease in GFR 60-89 3 Moderate decrease in GFR 30-59 4 Severe decrease in GFR 15-29 5 Kidney failure <15 (or dialysis) 36 Critical Result LACT:3.2 Called to ANA LUISA at: 20:53:15 by:[email or web address] Read back by:ANA LUISA [facility] Severe Sepsis and Septic Shock Management Bundle Measure requires all lactic acids initially measuring >2.0 mmol/L be repeated. 37 FASTING 12 HOUR 38 Because ethnic data is not always readily available, this report includes an eGFR for both -Americans and non- Americans. The National Kidney Disease Education Program (NKDEP) does not endorse the use of the MDRD equation for patients that are not between the ages of 18 and 70, are , have extremes of body size, muscle mass, or nutritional status, or are non- or non-. According to the National Kidney Foundation, irrespective of diagnosis, the stage of the disease is based on the level of kidney function: Stage Description GFR(mL/min/1.73 m(2)) 1 Kidney damage with normal or decreased GFR 90 2 Kidney damage with mild decrease in GFR 60-89 3 Moderate decrease in GFR 30-59 4 Severe decrease in GFR 15-29 5 Kidney failure <15 (or dialysis) 39 Desirable <150 Borderline high 150-199 High 200-499 Very High >500 40 Desirable <200 Borderline high 200-239 High >239 41 Low <40 Desirable: 40-60 High: >60 42 Desirable: <100 mg/dL Near Optimal: 100-129 mg/dL Borderline High: 130-159 mg/dL High: 160-189 mg/dL Very High: >189 mg/dL 43 FASTING 12 HOUR 44 Because ethnic data is not always readily available, this report includes an eGFR for both -Americans and non- Americans. The National Kidney Disease Education Program (NKDEP) does not endorse the use of the MDRD equation for patients that are not between the ages of 18 and 70, are , have extremes of body size, muscle mass, or nutritional status, or are non- or non-. According to the National Kidney Foundation, irrespective of diagnosis, the stage of the disease is based on the level of kidney function: Stage Description GFR(mL/min/1.73 m(2)) 1 Kidney damage with normal or decreased GFR 90 2 Kidney damage with mild decrease in GFR 60-89 3 Moderate decrease in GFR 30-59 4 Severe decrease in GFR 15-29 5 Kidney failure <15 (or dialysis) 45 Desirable <150 Borderline high 150-199 High 200-499 Very High >500 46 Desirable <200 Borderline high 200-239 High >239 47 Low <40 Desirable: 40-60 High: >60 48 Desirable: <100 mg/dL Near Optimal: 100-129 mg/dL Borderline High: 130-159 mg/dL High: 160-189 mg/dL Very High: >189 mg/dL 49 Because ethnic data is not always readily available, this report includes an eGFR for both -Americans and non- Americans. The National Kidney Disease Education Program (NKDEP) does not endorse the use of the MDRD equation for patients that are not between the ages of 18 and 70, are , have extremes of body size, muscle mass, or nutritional status, or are non- or non-. According to the National Kidney Foundation, irrespective of diagnosis, the stage of the disease is based on the level of kidney function: Stage Description GFR(mL/min/1.73 m(2)) 1 Kidney damage with normal or decreased GFR 90 2 Kidney damage with mild decrease in GFR 60-89 3 Moderate decrease in GFR 30-59 4 Severe decrease in GFR 15-29 5 Kidney failure <15 (or dialysis) 50 Desirable <150 Borderline high 150-199 High 200-499 Very High >500 51 Desirable <200 Borderline high 200-239 High >239 52 Low <40 Desirable: 40-60 High: >60 53 Desirable: <100 mg/dL Near Optimal: 100-129 mg/dL Borderline High: 130-159 mg/dL High: 160-189 mg/dL Very High: >189 mg/dL 54 FASTING 12 HOUR 55 Because ethnic data is not always readily available, this report includes an eGFR for both -Americans and non- Americans. The National Kidney Disease Education Program (NKDEP) does not endorse the use of the MDRD equation for patients that are not between the ages of 18 and 70, are , have extremes of body size, muscle mass, or nutritional status, or are non- or non-. According to the National Kidney Foundation, irrespective of diagnosis, the stage of the disease is based on the level of kidney function: Stage Description GFR(mL/min/1.73 m(2)) 1 Kidney damage with normal or decreased GFR 90 2 Kidney damage with mild decrease in GFR 60-89 3 Moderate decrease in GFR 30-59 4 Severe decrease in GFR 15-29 5 Kidney failure <15 (or dialysis) 56 Desirable <150 Borderline high 150-199 High 200-499 Very High >500 57 Desirable <200 Borderline high 200-239 High >239 58 Low <40 Desirable: 40-60 High: >60 59 Desirable <100 Near Optimal 100-129 Borderline high 130-159 High 160-189 Very High >189 60 Serum levels of PSA measured using the [employer] immunoassay should not be interpreted as absolute evidence of the presence or absence of disease. The PSA value should be used in conjunction with other pertinent clinical diagnostic procedures. The values obtained with different assay methods or kits cannot be used interchangeably. 61 Because ethnic data is not always readily available, this report includes an eGFR for both -Americans and non- Americans. The National Kidney Disease Education Program (NKDEP) does not endorse the use of the MDRD equation for patients that are not between the ages of 18 and 70, are , have extremes of body size, muscle mass, or nutritional status, or are non- or non-. According to the National Kidney Foundation, irrespective of diagnosis, the stage of the disease is based on the level of kidney function: Stage Description GFR(mL/min/1.73 m(2)) 1 Kidney damage with normal or decreased GFR 90 2 Kidney damage with mild decrease in GFR 60-89 3 Moderate decrease in GFR 30-59 4 Severe decrease in GFR 15-29 5 Kidney failure <15 (or dialysis) 62 HDL Interpretation: Undesirable: High Risk: Less than 40 mg/dL Desirable: Low Risk: Greater than 60 mg/dL 63 LDL Interpretation: Low Risk Optimal Level: LDL Less than 100 mg/dL Near or Above Optimal: LDL 100-129 mg/dL Borderline High Risk: LDL 130-159 mg/dL High Risk: LDL 160-189 mg/dL Very High Risk: LDL Greater than 189 mg/dL 64 FASTING 65 HDL Interpretation: Undesirable: High Risk: Less than 40 MG/DL Desirable: Low Risk: Greater than 60 MG/DL 66 LDL Interpretation: Low Risk Optimal Level: LDL Less than 100 MG/DL Near or Above Optimal: LDL 100-129 MG/DL Borderline High Risk: LDL 130-159 MG/DL High Risk: LDL 160-189 MG/DL Very High Risk: LDL Greater than 189 MG/DL 67 Serum levels of PSA measured using the [employer] immunoassay should not be interpreted as absolute evidence of the presence or absence of disease. The PSA value should be used in conjunction with other pertinent clinical diagnostic procedures. The values obtained with different assay methods or kits cannot be used interchangeably. 68 Because ethnic data is not always readily available, this report includes an eGFR for both -Americans and non- Americans. The National Kidney Disease Education Program (NKDEP) does not endorse the use of the MDRD equation for patients that are not between the ages of 18 and 70, are , have extremes of body size, muscle mass, or nutritional status, or are non- or non-. According to the National Kidney Foundation, irrespective of diagnosis, the stage of the disease is based on the level of kidney function: Stage Description GFR(mL/min/1.73 m(2)) 1 Kidney damage with normal or decreased GFR 90 2 Kidney damage with mild decrease in GFR 60-89 3 Moderate decrease in GFR 30-59 4 Severe decrease in GFR 15-29 5 Kidney failure <15 (or dialysis) 69 NORMAL RANGE MALES 1 - 20 NORMALLY MENSTRUATING FEMALES - Follicular Phase 3 - 9 - Mid-Cycle Peak 4 - 23 - Luteal Phase 1 - 6 POSTMENOPAUSAL FEMALES 16 - 114 . 70 NORMAL RANGE MALES 2 - 12 NORMALLY MENSTRUATING FEMALES - Follicular Phase 1 - 18 - Mid-Cycle Peak 24 - 105 - Luteal Phase 0.6 - 20 POSTMENOPAUSAL FEMALES 15 - 62 . 71 04/11/12 1517: FREE TEST previously reported as: SEE BELOW ng/dL Testosterone, Total and Free, S was cancelled on 04/10/2012 at 11:41; Test cancelled by RBS rule <[email or web address]> Reason: Test TGRP is cancelled and replaced with Test TTFB due to being ordered with Test TTBS. Test Performed by: [place] [address] Supervisor [employer] Hand: Kye Murdock III, M.D. 72 04/11/12 1234: TOTAL TEST previously reported as: SEE BELOW ng/dL Testosterone, Total and Bioavail, S was cancelled on 04/10/2012 at 11:41; Test cancelled by RBS rule <[email or web address]> Reason: Test TTBS is cancelled and replaced with Test TTFB due to being ordered with Test TGRP. Test Performed by: [place] [address] Supervisor [employer]: Kye Murdock III, M.D. 73 04/11/12 1523: BIOAVAIL TEST previously reported as: SEE BELOW ng/dL Testosterone, Total and Bioavail, S was cancelled on 04/10/2012 at 11:41; Test cancelled by RBS rule <[email or web address]> Reason: Test TTBS is cancelled and replaced with Test TTFB due to being ordered with Test TGRP. Test Performed by: [place] [address] Supervisor [employer] Hand: Kye Murdock III, M.D. Test Performed by: [place] [address] Supervisor [employer]: Kye Murdock III, M.D. 74 CHOLESTEROL INTERPRETATION: Desirable: Less than 200 MG/DL Borderline-High Risk: 200-239 MG/DL High-Risk: 240 MG/DL and over 75 HDL INTERPRETATION: Undesirable: High Risk: Less than 40 MG/DL Desirable: Low Risk: Greater than 60 MG/DL 76 LDL INTERPRETATION: Low Risk Optimal Level: LDL Less than 100 MG/DL Near or Above Optimal: LDL 100-129 MG/DL Borderline High Risk: LDL 130-159 MG/DL High Risk: LDL 160-189 MG/DL Very High Risk: LDL Greater than 189 MG/DL 77 Test Performed by: [place] [address] Supervisor [employer]: Kye Murdock III, M.D. 78 Test Performed by: [place] [address] Supervisor [employer]: Kye Murdock III, M.D. 79 Anion gap measurement may be of limited value in the presence of any alkalosis, especially in a combined acid base disorder. . 80 A metabolite of Naproxen, O-desmethylnaproxen, has been shown to interfere with the Jendrassik-Abner method for measuring total bilirubin. Samples from patients who have taken Naproxen have shown spurious elevation in total bilirubin levels. 81 Because ethnic data is not always readily available, this report includes an eGFR for both -Americans and non- Americans. The National Kidney Disease Education Program (NKDEP) does not endorse the use of the MDRD equation for patients that are not between the ages of 18 and 70, are , have extremes of body size, muscle mass, or nutritional status, or are non- or non-. According to the National Kidney Foundation, irrespective of diagnosis, the stage of the disease is based on the level of kidney function: Stage Description GFR(mL/min/1.73 m(2)) 1 Kidney damage with normal or decreased GFR 90 2 Kidney damage with mild decrease in GFR 60-89 3 Moderate decrease in GFR 30-59 4 Severe decrease in GFR 15-29 5 Kidney failure <15 (or dialysis) 82 CHOLESTEROL INTERPRETATION: Desirable: Less than 200 MG/DL Borderline-High Risk: 200-239 MG/DL High-Risk: 240 MG/DL and over 83 HDL INTERPRETATION: Undesirable: High Risk: Less than 40 MG/DL Desirable: Low Risk: Greater than 60 MG/DL 84 LDL INTERPRETATION: Low Risk Optimal Level: LDL Less than 100 MG/DL Near or Above Optimal: LDL 100-129 MG/DL Borderline High Risk: LDL 130-159 MG/DL High Risk: LDL 160-189 MG/DL Very High Risk: LDL Greater than 189 MG/DL 85 * SERUM LEVELS OF PSA MEASURED USING THE [employer] ACCESS HYBRITECH IMMUNOASSAY SHOULD NOT BE INTERPRETED ABSOLUTE EVIDENCE OF THE PRESENCE OR ABSENCE OF DISEASE. THE PSA VALUE SHOULD BE USED IN CONJUNCTION WITH OTHER PERTINENT CLINICAL DIAGNOSTIC PROCEDURES. 86 Anion gap measurement may be of limited value in the presence of any alkalosis, especially in a combined acid base disorder. . 87 A metabolite of Naproxen, O-desmethylnaproxen, has been shown to interfere with the Jendrassik-Dunlo method for measuring total bilirubin. Samples from patients who have taken Naproxen have shown spurious elevation in total bilirubin levels. 88 Because ethnic data is not always readily available, this report includes an eGFR for both -Americans and non- Americans. The National Kidney Disease Education Program (NKDEP) does not endorse the use of the MDRD equation for patients that are not between the ages of 18 and 70, are , have extremes of body size, muscle mass, or nutritional status, or are non- or non-. According to the National Kidney Foundation, irrespective of diagnosis, the stage of the disease is based on the level of kidney function: Stage Description GFR(mL/min/1.73 m(2)) 1 Kidney damage with normal or decreased GFR 90 2 Kidney damage with mild decrease in GFR 60-89 3 Moderate decrease in GFR 30-59 4 Severe decrease in GFR 15-29 5 Kidney failure <15 (or dialysis) Procedures Date CPT Code Description Status Comment 02/27/2018 42458 EKG Tracing & Completed Interpretation 02/25/2018 22601 ECHO Transthoracic, Real-Time Completed 2D With Doppler And Color Flow 10/29/2017 34255 EEG Recording Awake & Completed Drowsy 02/11/2017 22981 EEG Recording Awake & Completed Drowsy 01/01/2017 01460 EKG Tracing & Completed Interpretation 11/13/2016 Diabetic Retinal Eye Exam Completed Document: 11/13/16 - Consult Ophthalmology - Livier K 08/13/2016 67253 EKG Tracing & Completed Interpretation 07/11/2016 31303 ECHO Transthoracic, Real-Time Completed 2D With Doppler And Color Flow 06/20/2016 58696 Treadmill Interp/Report Only Completed 06/20/2016 22536 Stress Test Supervsn W/Out Completed I/R 2016 41477 Treadmill Interp/Report Only Completed 2016 56051 Stress Test Supervsn W/Out Completed I/R 01/27/2016 33891 ECHO Transthoracic, Real-Time Completed 2D With Doppler And Color Flow 01/25/2016 17149 Treadmill Interp/Report Only Completed 01/25/2016 02879 Stress Test Supervsn W/Out Completed I/R 01/04/2016 31535 Mobile Cardiovascular Completed Telemetry Over 24 HR Up To 30 Days 12/27/2015 58153 EKG Tracing & Completed Interpretation 12/18/2015 74624 Holter Monitor Review (24 Completed hr)dr review & interp only 12/14/2015 42497 ECG Monitor/Recording Completed W/Visual Superimposition Scanning 06/08/2011 25975 Xray Knee 3 Views Completed 06/08/2011 41325 Rad Exam; Knee, Ap&L Completed Encounters Type Date Location Provider CPT E/M Dx Office Visit 02/26/2018 [facility] [address] G40.89 9:30a Office Visit 02/20/2018 [facility] Oracio Gee, 37866 Z01.818 8:20a [place] I10 E03.9 Office Visit 02/10/2018 10:30a [facility] Patt Medeiros M.D. 41625 M25.551 C.M.A. M16.11 Office Visit 01/29/2018 10:00a [facility] Oracio Gee, 04891 M25.551 Thompson Bailey M.D. Office Visit 01/15/2018 9:40a [facility] Oracio Gee 82306 I10 Thompson Bailey M.D. E78.2 E03.9 G40.89 M25.551 M25.561 Office Visit 10/22/2017 11:00a [facility] [place] [address] G40.89 M25.551 Office Visit 07/10/2017 10:20a [facility] Oracio Gee 12350 Z00.01 Thompson Bailey M.D. I10 E78.2 E03.9 G40.89 R55 M25.561 F17.210 Office Visit 06/19/2017 10:30a [facility] [place] [address] R55 M25.551 Office Visit 05/29/2017 9:40a [facility] Oracio Gee M.D. 37493 I10 - [place] E78.5 E03.9 G40.89 Office Visit 02/27/2017 10:30a [facility] [place] [address] R55 [facility] Office Visit 01/09/2017 3:00p [facility] [place] [address] R55 [facility] Office Visit 01/01/2017 3:20p [facility] Zoyaybapryl SCesar 72681 I10 Ruddy Paul E78.5 E03.9 I49.3 Office Visit 12/19/2016 11:20a [facility] Oracio Gee M.D. 48107 I10 - [place] E78.5 E03.9 I25.10 G40.89 Office Visit 08/13/2016 4:20p [facility] Bharattaybapryl Paul 61995 I10 Ruddy E78.5 E03.9 I49.3 Q24.8 R94.31 Office Visit 08/08/2016 11:00a [facility] Oracio Gee M.D. 75813 I10 - [place] E78.5 E03.9 F17.210 G40.89 R55 Office Visit 05/18/2016 9:00a [facility] Oracio Gee 03169 Z00.00 Thompson Bailey M.D. I10 E78.5 E03.9 R55 G40.89 Z12.5 Z23 Office Visit 12/27/2015 2:20p [facility] Ghislaine Paul, 89492 R55 Ruddy I47.2 E78.5 E03.9 I10 F17.210 Office Visit 12/23/2015 9:40a [facility] Oracio Gee M.D. 82124 R55 - [place] M25.561 S72.002D Office Visit 12/14/2015 9:40a [facility] Oracio Gee, 81595 E03.9 - [place] Fox R55 I10 E78.5 F17.210 Office Visit 11/07/2015 11:39a [facility] Cecilia Rocha, ALEKSANDR 74558 E78.2 Hospitalists S72.002A E03.9 H44.30 Office Visit 11/06/2015 11:38a [facility] Cecilia Rocha, ALEKSANDR 32087 H44.30 Assoc,pc Hospitalists S72.002A E78.2 E03.9 Office Visit 11/05/2015 [facility] 74673 S72.002A Assoc,pc Hospitalists [facility] ASSOCIATE JUSTICE E78.2 E03.9 H44.30 Office Visit 11/04/2015 11:37a [facility] Stella Cuadra, 35786 S72.002A Assoc,pc Hospitalists N.P. E03.9 E78.2 H44.30 Office Visit 11/03/2015 11:34a [facility] Stella Cuadra, 22324 S72.002A Assoc,pc Hospitalists N.P. E78.2 E03.9 H44.30 Office Visit 08/04/2015 9:20a [facility] - Feroz Sorto, [facility] COURT ASSOCIATE JUSTICE 23554 Z01.818 [place] H40.9 Z23 I10 E78.5 E03.9 F17.210 F52.21 M25.562 Office Visit 07/27/2015 11:00a [facility] Oracio Gee M.D. 91571 I10 - [place] E78.5 E03.9 F17.210 F52.21 Office Visit 04/22/2015 11:00a [facility] Oracio Gee 22496 401.9 - [place] M.D. 272.4 244.1 719.46 Office Visit 11/24/2014 10:00a [facility] Oracio Wureyna, 86291 401.9 - [place] M.D. 272.4 244.1 V70.0 607.84 305.1 Office Visit 03/23/2014 9:50a [facility] Grace Perez M.D. 99010 272.4 - [place] 244.1 305.1 715.96 302.72 Office Visit 05/19/2013 11:20a [facility] Oracio Wureyna, 60693 272.4 - [place] M.D. 244.1 401.9 302.72 278.00 Office Visit 03/03/2013 2:00p [facility] Oracio Wureyna, 14831 272.4 - [place] M.D. 244.1 Office Visit 04/08/2012 11:00a [facility] Grace Perez M.D. 97774 257.2 - [place] 302.72 796.2 272.4 305.1 Office Visit 03/19/2012 11:00a [facility] Oracio Gee, 01960 244.1 - [place] M.D. 272.4 302.72 305.1 Office Visit 12/18/2011 10:20a [facility] Oracio Jazminreyna, 64020 244.1 - [place] M.D. 272.4 302.72 Office Visit 07/25/2011 11:20a DO Not Use Contract Associate AT Oracio Gee M.D. 29922 244.1 [place] 272.4 311 302.72 Office Visit 06/08/2011 2:00p [facility] Sadi Ayoub M.D. 60153 716.96 C.M.A. Office Visit 05/09/2011 11:40a DO Not Use Contract Associate AT Oracio Gee, 85882 717.2 [place] M.DCesar 311 Office Visit 04/11/2011 11:40a DO Not Use Contract Associate AT Oracio Gee M.D. 93450 244.1 [place] 285.8 717.5 305.1 272.4 311 Office Visit 01/10/2011 1:00p DO Not Use Contract Associate AT Oracio Gee M.D. 98413 244.1 [place] V72.62 365.9 285.8 302.72 V70.0 305.1 Office Visit 12/20/2010 1:40p DO Not Use Contract Associate AT Oracio Gee M.D. 03457 244.1 [facility] Office Visit 10/02/2010 9:20a DO Not Use Contract Associate AT Oracio Gee M.D. 63797 244.1 [facility] 365.9 V72.62 717.5 Plan of Care Future Appointment(s):03/24/2018 10:15 am - Patt Medeiros M.D. at [facility].07/07/2018 1:00 pm - Surya Posey M.D. at [facility]05/23/2018 10:00 am - Oracio Gee M.D. at [facility] - [address]03/11/2018 11:30 am - Frank Seymour PA-C at [facility]03/11/2018 11:30 am - KYLEE Jade at [facility].03/11/2018 11:30 am - Patt Medeiros M.D. at [facility]04/02/2018 10:00 am - Oracio Gee M.D. at [facility] - Zlqdkaszl19/21/2018 - Patt Medeiros M.D.M25.551 Pain in right hipFollow up:Follow up: 2 weeks after gimlmflD52.11 Unilateral primary osteoarthritis, right hip
--- OUTSIDE RECORDS SUMMARY | 2018-03-11 12:19 | XMS REPORT ---
:1970 External Reference #:[id number] Author Organization [facility] Address [address] [address] Phone [phone] Care Team Providers Name Role Phone Oracio Gee MD Primary Care Physician Unavailable Payers Type Date Identification Numbers Payment Provider Subscriber Medicare Primary Effective: Policy Number: Medicare Julius Medina 2013 [id number] PayID: [id number] [address] [place] [address] Medigap Part B Effective: 2013 Policy Number: Medicaid Julius Medina [id number] PayID: [id number] [address] [place] [address] Commercial Effective: Policy Number: [employer] Julius 2011 [id number] Medicaid Adam Expires: 2013 PayID: [id number] [address] [address] [place] [address] Problems Date Description Provider Status Onset: 07/25/2011 Postablative hypothyroidism Oracio Gee M.D. Active Onset: 07/25/2011 Hyperlipidemia Oracio Gee M.D. Active Onset: 07/25/2011 Depressive disorder Oracio Gee M.D. Active Onset: 01/20/2013 Tobacco user Oracio Gee M.D. Active Onset: 01/20/2013 Essential hypertension Oracio eGe M.D. 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 05/18 Atorvastatin 03/23 Hx Tablets 40mg 30tab 1 tab at E78.5 [employer] s bedtime Marlen - M.D. 05/19 Synthroid [...] CPT Code Status Date Vaccine Lot # [id number] Given 05/18/2016 Pneumonia Vaccine [id number] Given 08/04/2015 Influenza Virus Vaccine, Quadrivalent, Split, [id number] Preservative Free Vital Signs Date Vital Result Comment 02/27/2018 Height 68.5 inches 5'8.50" Weight 184.00 [...] finding Horm) PSA Screening 2.269 ng/mL 0-4.000 , 33 CBC Auto Diff 02/08/2016 White Blood [...] TSH 3.44 MIU/ML 0.34-5.60 Lipid Panel - J[facility] 12/18/2011 CPK (Creatine Kinase) 91 U/L 0-200 [...] (or dialysis) 13 FASTING 10 HOUR 14 [id number] 15 Desirable <150 Borderline high 150-199 High [...] 5 Kidney failure <15 (or dialysis) 20 [id number] 21 FASTING 10 HOUR 22 Desirable <150 Borderline high 150-199 High 200-499 Very High >500 23 Desirable <200 Borderline high 200-239 High >239 24 Low <40 Desirable: 40-60 High: >60 25 Desirable: <100 mg/dL Near Optimal: 100-129 mg/dL Borderline High: 130-159 mg/dL High: 160-189 mg/dL Very High: >189 mg/dL 26 [id number] 27 Because ethnic data is not always [...] 160-189 mg/dL Very High: >189 mg/dL 32 [id number] 33 Serum levels of PSA measured using the Balaji DNAtriX DXI Hybritech immunoassay should not be interpreted as absolute evidence of the presence or absence of disease. The PSA value should be used in conjunction with other pertinent clinical diagnostic procedures. The values obtained with different assay methods or kits cannot be used interchangeably. 34 Reference Range and Interpretation: TnI (ng/mL) Interpretation Less Than 0.03 ng/mL Not supportive of diagnosis of ID 0.03 - 0.50 ng/mL Indeterminate: suggest serial studies if clinically indicated. Greater than 0.5 ng/mL Consistent with diagnosis of ID 35 Because ethnic data is not always [...] LACT:3.2 Called to ANA LUISA at: 20:53:15 by:[id number] Read back by:ANA LUISA PAJaylin Severe Sepsis and Septic Shock Management Bundle [...] Serum levels of PSA measured using the Healios K.K DXI Hybritech immunoassay should not be interpreted [...] levels of PSA measured using the Balaji Sarah DXI Hybritech immunoassay should not be interpreted [...] ordered with Test TTBS. Test Performed by: [place] [address] Liaison Officer: Kye Murdock III, M.D. 72 04/11/12 1234: TOTAL TEST previously reported as: SEE BELOW ng/dL Testosterone, Total and Bioavail, S was cancelled on 04/10/2012 at 11:41; Test cancelled by RBS rule <TGRP1> Reason: Test TTBS is cancelled and replaced with Test TTFB due to being ordered with Test TGRP. Test Performed by: [place] [address] Liaison Officer: Kye Murdock III, M.D. 73 04/11/12 1523: BIOAVAIL TEST previously reported as: SEE BELOW ng/dL Testosterone, Total and Bioavail, S was cancelled on 04/10/2012 at 11:41; Test cancelled by RBS rule <TGRP1> Reason: Test TTBS is cancelled and replaced with Test TTFB due to being ordered with Test TGRP. Test Performed by: [address] [address] Liaison Officer: Kye Murdock III, M.D. Test Performed by: [address] [address] Liaison Officer: Kye Murdock III, M.D. 74 CHOLESTEROL INTERPRETATION: [...] than 189 MG/DL 77 Test Performed by: [place] [address] Liaison Officer: Kye Murdock III, M.D. 78 Test Performed by: [place] [address] Liaison Officer: Kye Murdock III, M.D. 79 Anion gap [...] LEVELS OF PSA MEASURED USING THE BALAJI Chartio ACCESS HYBRITECH IMMUNOASSAY SHOULD NOT BE INTERPRETED [...] Date CPT Code Description Status Comment 02/27/2018 17123 EKG Tracing & Completed Interpretation 02/25/2018 85924 ECHO Transthoracic, Real-Time Completed 2D With Doppler And Color Flow 10/29/2017 77499 EEG Recording Awake & Completed Drowsy 02/11/2017 73241 EEG Recording Awake & Completed Drowsy 01/01/2017 86014 EKG Tracing & Completed Interpretation 11/13/2016 Diabetic Retinal Eye Exam Completed Document: 11/13/16 - Consult Ophthalmology - Livier Gunn 08/13/2016 70395 EKG Tracing & Completed Interpretation 07/11/2016 04768 ECHO Transthoracic, Real-Time Completed 2D With Doppler And Color Flow 06/20/2016 72211 Treadmill Interp/Report Only Completed 06/20/2016 57440 Stress Test Supervsn W/Out Completed I/R 2016 88232 Treadmill Interp/Report Only Completed 2016 61615 Stress Test Supervsn W/Out Completed I/R 01/27/2016 63997 ECHO Transthoracic, Real-Time Completed 2D With Doppler And Color Flow 01/25/2016 80294 Treadmill Interp/Report Only Completed 01/25/2016 33761 Stress Test Supervsn W/Out Completed I/R 01/04/2016 71036 Mobile Cardiovascular Completed Telemetry Over 24 HR Up To 30 Days 12/27/2015 11350 EKG Tracing & Completed Interpretation 12/18/2015 26451 Holter Monitor Review (24 Completed hr)dr review & interp only 12/14/2015 87402 ECG Monitor/Recording Completed W/Visual Superimposition Scanning 06/08/2011 17162 Xray Knee 3 Views Completed 06/08/2011 06989 Rad Exam; Knee, Ap&L Completed Encounters Type Date Location Provider CPT E/M Dx Office Visit 02/26/2018 [facility] [address] G40.89 9:30a Office Visit 02/20/2018 [facility] Oracio Gee, 63091 Z01.818 8:20a [place] I10 E03.9 Office Visit 02/10/2018 10:30a [facility] Patt Medeiros M.D. 69790 M25.551 C.M.A. M16.11 Office Visit 01/29/2018 10:00a [facility] Internal Oracio Gee 02339 M25.551 Thompson Bailey M.D. Office Visit 01/15/2018 9:40a [facility] Internal Oracio Gee 17132 I10 Thompson Bailey M.D. E78.2 E03.9 G40.89 M25.551 M25.561 Office Visit 10/22/2017 11:00a [facility] [place] [address] G40.89 M25.551 Office Visit 07/10/2017 10:20a [facility] Oracio Gee 40833 Z00.01 Thompson Bailey M.D. I10 E78.2 E03.9 G40.89 R55 M25.561 F17.210 Office Visit 06/19/2017 10:30a [facility] [place] [address] R55 M25.551 Office Visit 05/29/2017 9:40a [facility] Oracio Gee M.D. 10502 I10 - [place] E78.5 E03.9 G40.89 Office Visit 02/27/2017 10:30a [facility] [place] [address] R55 Services Of [facility] Office Visit 01/09/2017 3:00p [facility] [place] [address] R55 [facility] Office Visit 01/01/2017 3:20p [facility] Ghislaine Arndt 99032 I10 Ruddy Paul E78.5 E03.9 I49.3 Office Visit 12/19/2016 11:20a [facility] Oracio Gee M.D. 18895 I10 - [place] E78.5 E03.9 I25.10 G40.89 Office Visit 08/13/2016 4:20p [facility] Zoyaybapryl Paul, 96104 I10 Ruddy E78.5 E03.9 I49.3 Q24.8 R94.31 Office Visit 08/08/2016 11:00a [facility] Oracio Gee M.D. 99498 I10 - [place] E78.5 E03.9 F17.210 G40.89 R55 Office Visit 05/18/2016 9:00a [facility] Internal Oracio Gee 36019 Z00.00 Thompson Bailey M.D. I10 E78.5 E03.9 R55 G40.89 Z12.5 Z23 Office Visit 12/27/2015 2:20p [facility] Bharattaybapryl Paul, 93841 R55 Ruddy I47.2 E78.5 E03.9 I10 F17.210 Office Visit 12/23/2015 9:40a [facility] Oracio Gee M.D. 49607 R55 - [place] M25.561 S72.002D Office Visit 12/14/2015 9:40a [facility] Oracio Gee, 22549 E03.9 - [place] Fox R55 I10 E78.5 F17.210 Office Visit 11/07/2015 11:39a [facility], [place] [address] E78.2 Hospitalists S72.002A E03.9 H44.30 Office Visit 11/06/2015 11:38a [facility] [place] [address] H44.30 Assoc,pc Hospitalists S72.002A E78.2 E03.9 Office Visit 11/05/2015 11:[facility] 79009 S72.002A Assoc, Hospitalists [employer] E78.2 E03.9 H44.30 Office Visit 11/04/2015 11:37a [facility] Stella Arndt Khalif, 07201 S72.002A Assoc,pc Hospitalists N.P. E03.9 E78.2 H44.30 Office Visit 11/03/2015 11:34a [facility] Stella Arndt Khalif, 95047 S72.002A Assoc,pc Hospitalists N.P. E78.2 E03.9 H44.30 Office Visit 08/04/2015 9:20a [facility] Medicine - Feroz Sorto, ALEKSANDR 58090 Z01.818 [place] H40.9 Z23 I10 E78.5 E03.9 F17.210 F52.21 M25.562 Office Visit 07/27/2015 11:00a [facility] Oracio Gee M.D. 99271 I10 - [place] E78.5 E03.9 F17.210 F52.21 Office Visit 04/22/2015 11:00a [facility] Medicine Oracio Gee 56694 401.9 - [place] Fox 272.4 244.1 719.46 Office Visit 11/24/2014 10:00a [facility] Oracio Gee 86013 401.9 - [place] Holley.Cindi 272.4 244.1 V70.0 607.84 305.1 Office Visit 03/23/2014 9:50a [facility] Grace Perez M.D. 51545 272.4 - [place] 244.1 305.1 715.96 302.72 Office Visit 05/19/2013 11:20a [facility] Medicine Oracio Gee 56224 272.4 - [place] Ruddy 244.1 401.9 302.72 278.00 Office Visit 03/03/2013 2:00p [facility] Medicine Oracio Gee 26218 272.4 - [place] Holley.DCesar 244.1 Office Visit 04/08/2012 11:00a [facility] Medicine Grace Perez M.D. 50029 257.2 - [place] 302.72 796.2 272.4 305.1 Office Visit 03/19/2012 11:00a [facility] Medicine Oracio Gee 30734 244.1 - [place] Holley.Cindi 272.4 302.72 305.1 Office Visit 12/18/2011 10:20a [facility] Medicine Oracio Gee 35076 244.1 - [place] Holley.Cindi 272.4 302.72 Office Visit 07/25/2011 11:20a DO Not Use Director Mobile AT Oracio Gee M.D. 76101 244.1 [place] 272.4 311 302.72 Office Visit 06/08/2011 2:00p [facility] Sadi Ayoub M.D. 23387 716.96 C.M.A. Office Visit 05/09/2011 11:40a DO Not Use Director Mobile AT Oracio Gee 00499 717.2 [place] M.DCesar 311 Office Visit 04/11/2011 11:40a DO Not Use Director Mobile AT Oracio Gee M.D. 40637 244.1 [place] 285.8 717.5 305.1 272.4 311 Office Visit 01/10/2011 1:00p DO Not Use Director Mobile AT Oracio Gee M.D. 03060 244.1 [place] V72.62 365.9 285.8 302.72 V70.0 305.1 Office Visit 12/20/2010 1:40p DO Not Use Director Mobile AT Oracio Gee M.D. 48588 244.1 [facility] Office Visit 10/02/2010 9:20a DO Not Use Director Mobile AT Oracio Gee M.D. 23323 244.1 [facility] 365.9 V72.62 717.5 Plan of Care Future Appointment(s):07/07/2018 1:00 pm - Surya Posey M.D. at [facility]05/23/2018 10:00 am - Oracio Gee M.D. at [facility] - [address]03/11/2018 11:30 am - Frank Seymour PA-C at [facility]03/11/2018 11:30 am - KYLEE Jade at [facility] M.A.03/11/2018 11:30 am - Patt Medeiros M.D. at [facility] M.A.04/02/2018 10:00 am - Oracio Gee M.D. at [facility] Medicine Xensxzybx08/17/2018 - Ghislaine Paul M.D.I10 Essential (primary) rijfpfveohjyZ72.9 Hypothyroidism, uzemizajrlpA84.0 Nonrheumatic mitral (valve) insufficiencyFollow up:one yr ovZ01.810 Encounter for preprocedural cardiovascular examination
--- OUTSIDE RECORDS SUMMARY | 2018-03-11 12:20 | XMS REPORT ---
:1970 External Reference #:[id number] Author Organization [facility] Address [address] [address] Phone [phone] Care Team Providers Name Role Phone Oracio Gee MD Primary Care Physician Unavailable Payers Type Date Identification Numbers Payment Provider Subscriber Medicare Primary Effective: Policy Number: Medicare Julius Medina 2013 [id number] PayID: [id number] [address] [place] [address] Medigap Part B Effective: 2013 Policy Number: Medicaid Julius Medina [id number] PayID: [id number] [address] [place] [address] Commercial Effective: Policy Number: [employer] Julius 2011 [id number] Medicaid Adam Expires: 2013 PayID: [id number] [address] [address] [place] [address] Problems Date Description Provider Status Onset: 07/25/2011 [...] Coronary Artery Disease (CAD) Father due to RI () - at age 57 Father Hypertension Mother Alzheimer's Disease Mother due to Alzheimer's () - age 78 Disease Siblings 3 No known CAD Social History Type Date Description Comments Marital Status Single Lives With Alone 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 05/18 Cialis 11/24 Hx Tablets 5mg 30tab 1 tab by 607.84 s mouth daily Marlen, - M.D. 05/18 Atorvastatin 03/23 Hx Tablets 40mg 30tab 1 tab at E78.5 Mohler s bedtime Marlen - M.D. 05/19 Synthroid [...] CPT Code Status Date Vaccine Lot # [id number] Given 05/18/2016 Pneumonia Vaccine [id number] Given 08/04/2015 Influenza Virus Vaccine, Quadrivalent, Split, [...] (or dialysis) 13 FASTING 10 HOUR 14 [id number] 15 Desirable <150 Borderline high 150-199 High [...] 5 Kidney failure <15 (or dialysis) 20 [id number] 21 FASTING 10 HOUR 22 Desirable <150 Borderline high 150-199 High 200-499 Very High >500 23 Desirable <200 Borderline high 200-239 High >239 24 Low <40 Desirable: 40-60 High: >60 25 Desirable: <100 mg/dL Near Optimal: 100-129 mg/dL Borderline High: 130-159 mg/dL High: 160-189 mg/dL Very High: >189 mg/dL 26 [id number] 27 Because ethnic data is not always [...] 160-189 mg/dL Very High: >189 mg/dL 32 [id number] 33 Serum levels of PSA measured using the [employer] DXI Hybritech immunoassay should not be interpreted as absolute evidence of the presence or absence of disease. The PSA value should be used in conjunction with other pertinent clinical diagnostic procedures. The values obtained with different assay methods or kits cannot be used interchangeably. 34 Reference Range and Interpretation: TnI (ng/mL) Interpretation Less Than 0.03 ng/mL Not supportive of diagnosis of RI 0.03 - 0.50 ng/mL Indeterminate: suggest serial studies if clinically indicated. Greater than 0.5 ng/mL Consistent with diagnosis of RI 35 Because ethnic data is not always [...] LACT:3.2 Called to ANA LUISA at: 20:53:15 by:[id number] Read back by:ANA LUISA DCJaylin Severe Sepsis and Septic Shock Management Bundle [...] Serum levels of PSA measured using the [employer] DXI Hybritech immunoassay should not be interpreted [...] ordered with Test TTBS. Test Performed by: [place] [address] Steel Tester: Kye Murdock III, M.D. 72 04/11/12 1234: TOTAL TEST previously reported as: SEE BELOW ng/dL Testosterone, Total and Bioavail, S was cancelled on 04/10/2012 at 11:41; Test cancelled by RBS rule <TGRP1> Reason: Test TTBS is cancelled and replaced with Test TTFB due to being ordered with Test TGRP. Test Performed by: [place] [address] Steel Tester: Kye Murdock III, M.D. 73 04/11/12 1523: BIOAVAIL TEST previously reported as: SEE BELOW ng/dL Testosterone, Total and Bioavail, S was cancelled on 04/10/2012 at 11:41; Test cancelled by RBS rule <TGRP1> Reason: Test TTBS is cancelled and replaced with Test TTFB due to being ordered with Test TGRP. Test Performed by: [address] [address] Steel Tester: Kye Murdock III, M.D. Test Performed by: [address] [address] Steel Tester: Kye Murdock III, M.D. 74 CHOLESTEROL INTERPRETATION: [...] than 189 MG/DL 77 Test Performed by: [place] [address] Steel Tester: Kye Murdock III, M.D. 78 Test Performed by: [place] [address] Steel Tester: Kye Murdock III, M.D. 79 Anion gap [...] LEVELS OF PSA MEASURED USING THE BAL[employer] ACCESS HYBRITECH IMMUNOASSAY SHOULD NOT BE INTERPRETED [...] Date CPT Code Description Status Comment 02/27/2018 16098 EKG Tracing & Completed Interpretation 02/25/2018 35095 ECHO Transthoracic, Real-Time Completed 2D With Doppler And Color Flow 10/29/2017 21551 EEG Recording Awake & Completed Drowsy 02/11/2017 89401 EEG Recording Awake & Completed Drowsy 01/01/2017 31460 EKG Tracing & Completed Interpretation 11/13/2016 Diabetic Retinal Eye Exam Completed Document: 11/13/16 - Consult Ophthalmology - Livier Gunn 08/13/2016 17917 EKG Tracing & Completed Interpretation 07/11/2016 12458 ECHO Transthoracic, Real-Time Completed 2D With Doppler And Color Flow 06/20/2016 61175 Treadmill Interp/Report Only Completed 06/20/2016 16661 Stress Test Supervsn W/Out Completed I/R 2016 77133 Treadmill Interp/Report Only Completed 2016 21496 Stress Test Supervsn W/Out Completed I/R 01/27/2016 30496 ECHO Transthoracic, Real-Time Completed 2D With Doppler And Color Flow 01/25/2016 46215 Treadmill Interp/Report Only Completed 01/25/2016 40112 Stress Test Supervsn W/Out Completed I/R 01/04/2016 26617 Mobile Cardiovascular Completed Telemetry Over 24 HR Up To 30 Days 12/27/2015 41066 EKG Tracing & Completed Interpretation 12/18/2015 05539 Holter Monitor Review (24 Completed hr)dr review & interp only 12/14/2015 45565 ECG Monitor/Recording Completed W/Visual Superimposition Scanning 06/08/2011 29671 Xray Knee 3 Views Completed 06/08/2011 85820 Rad Exam; Knee, Ap&L Completed Encounters Type Date Location Provider CPT E/M Dx Office Visit 02/20/2018 [facility] Oracio Gee 61200 Z01.818 8:20a [facility] Tbdrea Morrison M.D. I10 E03.9 Office Visit 02/10/2018 10:30a [facility] Patt Medeiros M.D. 83412 M25.551 [facility] M16.11 Office Visit 01/29/2018 10:00a [facility] Oracio Gee 55704 M25.551 Thompson Bailey M.D. Office Visit 01/15/2018 9:40a [facility] Oracio Gee 09966 I10 Thompson Bailey M.D. E78.2 E03.9 G40.89 M25.551 M25.561 Office Visit 10/22/2017 11:00a [facility] [address] G40.89 M25.551 Office Visit 07/10/2017 10:20a [facility] Tong Gee 92701 Z00.01 Thompson Bailey M.D. I10 E78.2 E03.9 G40.89 R55 M25.561 F17.210 Office Visit 06/19/2017 10:30a [facility] [address] R55 M25.551 Office Visit 05/29/2017 9:40a [facility] Oracio Gee M.D. 56847 I10 - [place] E78.5 E03.9 G40.89 Office Visit 02/27/2017 10:30a [facility] [place] [address] R55 Services [facility] Office Visit 01/09/2017 3:00p [facility] [place] [address] R55 [facility] Office Visit 01/01/2017 3:20p [facility] Bharattaybapryl SCesar 10363 I10 Ruddy Paul E78.5 E03.9 I49.3 Office Visit 12/19/2016 11:20a [facility] Oracio Gee M.D. 87869 I10 - [place] E78.5 E03.9 I25.10 G40.89 Office Visit 08/13/2016 4:20p [facility] Bharattaybapryl Paul, 95564 I10 Ruddy E78.5 E03.9 I49.3 Q24.8 R94.31 Office Visit 08/08/2016 11:00a [facility] Oracio Gee M.D. 67129 I10 - [place] E78.5 E03.9 F17.210 G40.89 R55 Office Visit 05/18/2016 9:00a [facility] Oracio Gee 18393 Z00.00 Medicine Joe Bailey M.D. I10 E78.5 E03.9 R55 G40.89 Z12.5 Z23 Office Visit 12/27/2015 2:20p [facility] Bharattaybapryl Paul, 19118 R55 Ruddy I47.2 E78.5 E03.9 I10 F17.210 Office Visit 12/23/2015 9:40a [facility] Oracio Gee M.D. 77638 R55 - [place] M25.561 S72.002D Office Visit 12/14/2015 9:40a [facility] Oracio Gee, 68087 E03.9 - [place] Fox R55 I10 E78.5 F17.210 Office Visit 11/07/2015 11:39a [facility], Cecilia Rocha, MEDICAL CASE MANAGER 04272 E78.2 Hospitalists S72.002A E03.9 H44.30 Office Visit 11/06[facility]2015 [facility] 95727 H44.30 Assoc, Hospitalists S72.002A E78.2 E03.9 Office Visit 11/05/2015 [facility] 25716 S72.002A Assoc, Hospitalists MEDICAL CASE MANAGER E78.2 E03.9 H44.30 Office Visit 11/04/2015 11:37a [facility] Stella Cuadra, 44386 S72.002A Assoc, Hospitalists N.P. E03.9 E78.2 H44.30 Office Visit 11/03/2015 11:34a [facility] Stella Cuadra, 97689 S72.002A Assoc, Hospitalists N.P. E78.2 E03.9 H44.30 Office Visit 08/04/2015 9:20a [facility] - Feroz Sorto, ALEKSANDR 58021 Z01.818 [place] H40.9 Z23 I10 E78.5 E03.9 F17.210 F52.21 M25.562 Office Visit 07/27/2015 11:00a [facility] Oracio Gee M.D. 13601 I10 - [place] E78.5 E03.9 F17.210 F52.21 Office Visit 04/22/2015 11:00a [facility] Oracio Gee 27070 401.9 - [place] Fox 272.4 244.1 719.46 Office Visit 11/24/2014 10:00a [facility] Oracio Gee 20923 401.9 - [place] Fox 272.4 244.1 V70.0 607.84 305.1 Office Visit 03/23/2014 9:50a [facility] Grace Perez M.D. 27081 272.4 - [place] 244.1 305.1 715.96 302.72 Office Visit 05/19/2013 11:20a [facility] Oracio Gee, 78768 272.4 - [place] M.D. 244.1 401.9 302.72 278.00 Office Visit 03/03/2013 2:00p [facility] Oracio Gee 24202 272.4 - [place] M.DCesar 244.1 Office Visit 04/08/2012 11:00a [facility] Grace Perez M.D. 24836 257.2 - [place] 302.72 796.2 272.4 305.1 Office Visit 03/19/2012 11:00a [facility] Oracio Gee 75252 244.1 - [place] M.D. 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 00738 244.1 [place] 272.4 311 302.72 Office Visit 06/08/2011 2:00p [facility] Sadi Ayoub M.D. 05830 716.96 [facility] Office Visit 05/09/2011 11:40a DO Not Use Professor Of Chemical Engineering AT Oracio Gee 35945 717.2 [place] M.DCesar 311 Office Visit 04/11/2011 11:40a DO Not Use Professor Of Chemical Engineering AT Oracio Gee M.D. 91490 244.1 [place] 285.8 717.5 305.1 272.4 311 Office Visit 01/10/2011 1:00p DO Not Use Professor Of Chemical Engineering AT Oracio Gee M.D. 43963 244.1 [place] V72.62 365.9 285.8 302.72 V70.0 305.1 Office Visit 12/20/2010 1:40p DO Not Use Professor Of Chemical Engineering AT Oracio Gee M.D. 38166 244.1 [place] Office Visit 10/02/2010 9:20a DO Not Use [facility] AT Oracio Gee M.D. 39566 244.1 [facility] 365.9 V72.62 717.5 Plan of Care Future Appointment(s):07/07/2018 1:00 pm - Surya Posey M.D. at [facility]05/23/2018 10:00 am - Oracio Gee M.D. at [facility] - [address]03/11/2018 11:30 am - Frank Seymour PA-C at [facility]03/11/2018 11:30 am - KLYEE Jade at [facility]03/11/2018 11:30 am - Patt Medeiros M.D. at [facility]03/03/2018 9:45 am - Patt Medeiros M.D. at [facility]04/02/2018 10:00 am - Oracio Gee M.D. at [facility] - Siqxrpqqo85/17/2018 - Ghislaine Paul M.D.I10 Essential (primary) tvqyxglcfenqR59.9 Hypothyroidism, bntscqwojomD01.0 Nonrheumatic mitral (valve) insufficiencyFollow up:one yr ovZ01.810 Encounter for preprocedural cardiovascular examination
--- OUTSIDE RECORDS SUMMARY | 2018-03-11 12:22 | XMS REPORT ---
:1970 External Reference #:[id number] Author Organization [facility] Address [address] [address] Phone [phone] Care Team Providers Name Role Phone Oracio Gee MD Primary Care Physician Unavailable Payers Type Date Identification Numbers Payment Provider Subscriber Medicare Primary Effective: Policy Number: Medicare Julius Medina 2013 [id number] PayID: [id number] [address] [place] [address] Medigap Part B Effective: 2013 Policy Number: Medicaid Julius Medina [id number] PayID: [id number] [address] [place] [address] Commercial Effective: Policy Number: [employer] Julius 2011 [id number] Medicaid Adam Expires: 2013 PayID: [id number] [address] [address] [place] [address] Problems Date Description Provider Status Onset: 07/25/2011 [...] Coronary Artery Disease (CAD) Father due to NC () - at age 57 Father Hypertension Mother Alzheimer's Disease Mother due to Alzheimer's () - age 78 Disease Siblings 3 No known CAD Social History Type Date Description Comments Marital Status Single Lives With Alone 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 stomach Ibuprofen 10/03 Active Tablets 600mg 90tab take one s tablet by Marlen, mouth twice M.D. daily as needed for severe pain Latanoprost Active Solution 0.005% 1 gtt both [place], /0000 eyes q hs MD Juan Alphagan P Active Solution 0.1% 1 gtt both [place], /0000 eyes bid MD Juan Dorzolamide Active Solution 22.3-6.8m 1 gtt both [place], HCL/Timolol /0000 g/ml eyes bid MD Juan Maleate Metoprolol 05/31 Hx Tablets 25mg 30tab 1 by mouth [place] Succinate ER ER 24HR s every day Marlen, - Pt states he M.D. 02/25 is not taking /2017 this. Atenolol 08/13 Hx Tablets 25mg 30tab 1 by mouth s every day Marlen - M.D. 05/31 Xarelto 11/07 Hx Tablets [...] mouth 0.5 s or 1 tab 1h Marlen, - before M.D. 05/18 Cialis 11/24 Hx Tablets 5mg 30tab 1 tab by 607.84 [place] s mouth daily Marlen - M.D. 05/18 Atorvastatin 03/23 Hx Tablets 40mg 30tab 1 tab at E78.5 [place] Calcium s bedtime Marlen - M.D. 05/19 Synthroid 03/03 Hx Tablets 175mcg 90tab 1 by mouth 244.1 Grace s every day Joe Perez M.D. 11/24 [...] times 305.1 its daily prn Joe Gee M.D. 03/03 Cialis 01/20 Hx Tablets 5mg 30tab 1 by mouth 1 302.72 s hour before Marlen - intercourse M.Cindi 03/03 as needed Ibuprofen 01/20 Hx Tablets 600mg 45tab tid prn V76.44 s Marlen - M.Cindi 03/03 Fenofibrate 04/09 Hx Tablets 160mg 90tab once daily s Joe Perez M.D. 03/03 Tricor 04/08 Hx Tablets 145mg 90tab 1 po daily Joe Junior M.D. 04/09 Cialis 04/08 Hx Tablets 5mg 30tab 1/2 tab 302.72 s before the Chris - sexual M.DCesar 01/20 activity Nicoderm CQ 03/19 Hx Patches 14mg/24HR 30uni once daily 305.1 24HR ts Joe Gee M.D. 04/08 Nicorelief 03/19 Hx Gum 2mg 120un q 2 hours prn 305.1 its Joe Gee MSaud 04/08 Viagra 03/19 Hx Tablets 100mg 10tab [...] 07/25 Zoloft 04/11 Hx Tablets 100mg 30tab 10/15 tab daily 311 s for 1 week [...] Tablets 75mcg 30tab 1 po qd 244.1 . Joe Torres M.D. 01/11 Immunizations CPT Code Status Date Vaccine Lot # [id number] Given 05/18/2016 Pneumonia Vaccine [id number] Given 08/04/2015 Influenza Virus Vaccine, Quadrivalent, Split, [id number] Preservative Free Vital Signs Date Vital Result Comment 02/26/2018 Height 68.5 inches 5'8.50" Weight 184.12 [...] ?IU/mL High 0.34-5.60 37, 43 finding Horm) Laboratory test 07/27/2015 TSH (Thyroid Stim 2.77 ?IU/mL 0.34-5.60 finding Horm) Lipid Profile 07/27/2015 Triglycerides 77 mg/dL 44 (Trig/Chol/HDL) Cholesterol 239 mg/dL 45 HDL Cholesterol 55.2 mg/dL 46 LDL Cholesterol 168 mg/dL 47 Comp Metabolic Panel 07/27/2015 Sodium 137 mmol/L [...] Egfr Non- 63.1 >60 Egfr 81.1 >60 48 Lipid Profile (Trig/Chol/HDL) 04/19/2015 Triglycerides 77 mg/dL 49 Cholesterol 228 mg/dL 50 HDL Cholesterol 58.6 mg/dL 51 LDL Cholesterol 154 mg/dL 52 Comp Metabolic Panel 04/19/2015 Sodium 136 mmol/L [...] Egfr Non- 66.8 >60 Egfr 85.9 >60 53 Laboratory test 11/15/2014 TSH (Thyroid 6.60 [...] g/dL 6.09-12.23 Free T3 2.50 pg/mL 2.5-3.9 Laboratory test finding 05/19/2013 TSH (Thyroid Stimulating 5.24 miu/mL 0.34-5.60 Horm) Lipid Profile 05/19/2013 Triglycerides 98 mg/dL 40-200 (Trig/Chol/HDL) Cholesterol 275 mg/dL High Less than 200 HDL Cholesterol 56 mg/dL 40-60 61 Cholesterol/HDL Ratio 4.9 Average High 1-4.44 LDL Cholesterol 199.4 High Less Than 100 62 Comp Metabolic Panel 05/19/2013 Sodium 139 mmol/L [...] Egfr Non- 59.7 >60 Egfr 76.8 >60 63 Laboratory test 02/06/2013 TSH (Thyroid Stimulating 5.32 [...] TSH 3.44 MIU/ML 0.34-5.60 Lipid Panel - [facility] 12/18/2011 CPK (Creatine Kinase) 91 U/L 0-200 [...] 1.19 ng/dL 0.61-1.24 TSH 4.01 MIU/ML 0.34-5.60 Laboratory test finding 03/07/2011 TSH 7.21 MIU/ML High 0.34-5.60 Thyroxine Free 1.13 ng/dL 0.61-1.24 Lipid Profile (Trig/Chol/HDL) 03/07/2011 Triglyceride 90 mg/dL 40-200 Cholesterol 222 mg/dL High Less Than 200 82 High Density Lipoprotein 55 mg/dL 40-60 83 Cholesterol/HDL Ratio 4.04 AVERAGE 1-4.97 Low Density Lipoprotein 149 mg/dL High Less Than 100 84 CBC Auto Diff 01/10/2011 White Blood Count [...] Eosinophils 0.1 0-0.6 Abs Basophils 0 0-0.2 Laboratory test finding 01/10/2011 TSH 13.70 MIU/ML High 0.34-5.60 Iron & Iron Binding Capacity 01/02/2011 Iron Total 72 g/dL 45-182 Unsaturated Iron Binding 237 g/dL Total Iron Binding Capacity 309 g/dL 250-450 % Iron Saturation 23 % 15-55 Laboratory test finding 12/20/2010 PSA Screening 1.51 [...] > 60 eGFR 85.4 > 60 88 CBC With Electronic Diff 12/20/2010 White Blood [...] Eosinophils 0.1 0-0.6 Abs Basophils 0.1 0-0.2 1 Because ethnic data is not always [...] (or dialysis) 13 FASTING 10 HOUR 14 [id number] 15 Desirable <150 Borderline high 150-199 High [...] 5 Kidney failure <15 (or dialysis) 20 [id number] 21 FASTING 10 HOUR 22 Desirable <150 Borderline high 150-199 High 200-499 Very High >500 23 Desirable <200 Borderline high 200-239 High >239 24 Low <40 Desirable: 40-60 High: >60 25 Desirable: <100 mg/dL Near Optimal: 100-129 mg/dL Borderline High: 130-159 mg/dL High: 160-189 mg/dL Very High: >189 mg/dL 26 [id number] 27 Because ethnic data is not always [...] 160-189 mg/dL Very High: >189 mg/dL 32 [id number] 33 Serum levels of PSA measured using the [employer] [place] DXI Hybritech immunoassay should not be interpreted as absolute evidence of the presence or absence of disease. The PSA value should be used in conjunction with other pertinent clinical diagnostic procedures. The values obtained with different assay methods or kits cannot be used interchangeably. 34 Reference Range and Interpretation: TnI (ng/mL) Interpretation Less Than 0.03 ng/mL Not supportive of diagnosis of NC 0.03 - 0.50 ng/mL Indeterminate: suggest serial studies if clinically indicated. Greater than 0.5 ng/mL Consistent with diagnosis of NC 35 Because ethnic data is not always [...] dialysis) 36 Critical Result LACT:3.2 Called to [id number] at: 20:53:15 by:[email or web address] Read back by:ANA LUISA [facility] Severe Sepsis and Septic Shock Management [...] >189 mg/dL 43 FASTING 12 HOUR 44 Desirable <150 Borderline high 150-199 High 200-499 Very High >500 45 Desirable <200 Borderline high 200-239 High >239 46 Low <40 Desirable: 40-60 High: >60 47 Desirable: <100 mg/dL Near Optimal: 100-129 mg/dL Borderline High: 130-159 mg/dL High: 160-189 mg/dL Very High: >189 mg/dL 48 Because ethnic data is not always readily [...] 15-29 5 Kidney failure <15 (or dialysis) 49 Desirable <150 Borderline high 150-199 High 200-499 Very High >500 50 Desirable <200 Borderline high 200-239 High >239 51 Low <40 Desirable: 40-60 High: >60 52 Desirable: <100 mg/dL Near Optimal: 100-129 mg/dL Borderline High: 130-159 mg/dL High: 160-189 mg/dL Very High: >189 mg/dL 53 Because ethnic data is not always readily [...] 15-29 5 Kidney failure <15 (or dialysis) 54 FASTING 12 HOUR 55 Because ethnic [...] Serum levels of PSA measured using the [employer] DXI Hybritech immunoassay should not be interpreted as absolute evidence of the presence or absence of disease. The PSA value should be used in conjunction with other pertinent clinical diagnostic procedures. The values obtained with different assay methods or kits cannot be used interchangeably. 61 HDL Interpretation: Undesirable: High Risk: Less than 40 mg/dL Desirable: Low Risk: Greater than 60 mg/dL 62 LDL Interpretation: Low Risk Optimal Level: LDL Less than 100 mg/dL Near or Above Optimal: LDL 100-129 mg/dL Borderline High Risk: LDL 130-159 mg/dL High Risk: LDL 160-189 mg/dL Very High Risk: LDL Greater than 189 mg/dL 63 Because ethnic data is not always readily [...] 15-29 5 Kidney failure <15 (or dialysis) 64 FASTING 65 HDL Interpretation: Undesirable: High [...] Serum levels of PSA measured using the [employer] DXI Hybritech immunoassay should not be interpreted [...] ordered with Test TTBS. Test Performed by: [place] [address] Air Conditioning Service Technician: Kye Murdock III, M.D. 72 04/11/12 1234: TOTAL TEST previously reported as: SEE BELOW ng/dL Testosterone, Total and Bioavail, S was cancelled on 04/10/2012 at 11:41; Test cancelled by RBS rule <TGRP1> Reason: Test TTBS is cancelled and replaced with Test TTFB due to being ordered with Test TGRP. Test Performed by: [place] [address] Air Conditioning Service Technician: Kye Murdock III, M.D. 73 04/11/12 1523: BIOAVAIL TEST previously reported as: SEE BELOW ng/dL Testosterone, Total and Bioavail, S was cancelled on 04/10/2012 at 11:41; Test cancelled by RBS rule <TGRP1> Reason: Test TTBS is cancelled and replaced with Test TTFB due to being ordered with Test TGRP. Test Performed by: [address] [address] Air Conditioning Service Technician: Kye Murdock III, M.D. Test Performed by: [place] [address] Air Conditioning Service Technician: Kye Murdock III, M.D. 74 CHOLESTEROL INTERPRETATION: [...] than 189 MG/DL 77 Test Performed by: [facility] [address] [place] [address] Air Conditioning Service Technician: Kye Murdock III, M.D. 78 Test Performed by: [facility] [address] [place] [address] Air Conditioning Service Technician: Kye Murdock III, M.D. 79 Anion gap [...] SERUM LEVELS OF PSA MEASURED USING THE [employer] ACCESS HYBRITECH IMMUNOASSAY SHOULD NOT BE INTERPRETED [...] Procedures Date CPT Code Description Status Comment 02/25/2018 19713 ECHO Transthoracic, Real-Time Completed 2D With Doppler And Color Flow 10/29/2017 97955 EEG Recording Awake & Completed Drowsy 02/11/2017 36128 EEG Recording Awake & Completed Drowsy 01/01/2017 47787 EKG Tracing & Completed Interpretation 11/13/2016 Diabetic Retinal Eye Exam Completed Document: 11/13/16 - Consult Ophthalmology - Livier Gunn 08/13/2016 32893 EKG Tracing & Completed Interpretation 07/11/2016 97594 ECHO Transthoracic, Real-Time Completed 2D With Doppler And Color Flow 06/20/2016 48828 Treadmill Interp/Report Only Completed 06/20/2016 33646 Stress Test Supervsn W/Out Completed I/R 2016 27540 Treadmill Interp/Report Only Completed 2016 15103 Stress Test Supervsn W/Out Completed I/R 01/27/2016 45870 ECHO Transthoracic, Real-Time Completed 2D With Doppler And Color Flow 01/25/2016 76647 Treadmill Interp/Report Only Completed 01/25/2016 08054 Stress Test Supervsn W/Out Completed I/R 01/04/2016 33677 Mobile Cardiovascular Completed Telemetry Over 24 HR Up To 30 Days 12/27/2015 64585 EKG Tracing & Completed Interpretation 12/18/2015 74975 Holter Monitor Review (24 Completed hr)dr review & interp only 12/14/2015 12647 ECG Monitor/Recording Completed W/Visual Superimposition Scanning 06/08/2011 26630 Xray Knee 3 Views Completed 06/08/2011 10112 Rad Exam; Knee, Ap&L Completed Encounters Type Date Location Provider CPT E/M Dx Office Visit 02/20/2018 [facility] Oracio Gee 68801 Z01.818 8:20a Medicine - Tbdrea Morrison M.D. I10 E03.9 Office Visit 02/10/2018 10:30a [facility] Patt Medeiros M.D. 78100 M25.551 C.M.A. M16.11 Office Visit 01/29/2018 10:00a [facility] Oracio Gee 98902 M25.551 Thompson Bailey M.D. Office Visit 01/15/2018 9:40a [facility] Oracio Gee 78392 I10 Thompson Bailey M.D. E78.2 E03.9 G40.89 M25.551 M25.561 Office Visit 10/22/2017 11:00a [facility] [address] G40.89 M25.551 Office Visit 07/10/2017 10:20a [facility] Oracio Gee 97502 Z00.01 Thompson Bailey M.D. I10 E78.2 E03.9 G40.89 R55 M25.561 F17.210 Office Visit 06/19/2017 10:30a [facility] [address] R55 M25.551 Office Visit 05/29/2017 9:40a [facility] Thompson Gee M.D. 32353 I10 - Lynn E78.5 E03.9 G40.89 Office Visit 02/27/2017 10:30a [place] [place] [address] R55 Services [facility] Office Visit 01/09/2017 3:00p [facility] [place] [address] R55 [facility] Office Visit 01/01/2017 3:20p [facility] [place]. [address] I10 Ruddy Paul E78.5 E03.9 I49.3 Office Visit 12/19/2016 11:20a [facility] Medicine Oracio Gee M.D. 75597 I10 - Lynn E78.5 E03.9 I25.10 G40.89 Office Visit 08/13/2016 4:20p [facility] Zoyaybapryl Paul, 34671 I10 Ruddy E78.5 E03.9 I49.3 Q24.8 R94.31 Office Visit 08/08/2016 11:00a [facility] Medicine Oracio Gee M.D. 10552 I10 - Lynn E78.5 E03.9 F17.210 G40.89 R55 Office Visit 05/18/2016 9:00a [facility] Oracio Gee, 86786 Z00.00 Medicine - Lynn Fox I10 E78.5 E03.9 R55 G40.89 Z12.5 Z23 Office Visit 12/27/2015 2:20p [facility] Ghislaine Paul, 79904 R55 Ruddy I47.2 E78.5 E03.9 I10 F17.210 Office Visit 12/23/2015 9:40a [facility] Medicine Oracio Gee M.D. 25682 R55 - Lynn M25.561 S72.002D Office Visit 12/14/2015 9:40a [facility] Oracio Gee 63911 E03.9 - Lynn Fox R55 I10 E78.5 F17.210 Office Visit 11/07/2015 11:39a [facility],[place] [address] E78.2 Hospitalists S72.002A E03.9 H44.30 Office Visit 11/06/2015 11:38a [facility] Cecilia Rocha, LEAD JANITOR 97586 H44.30 Assoc,pc Hospitalists S72.002A E78.2 E03.9 Office Visit 11/05/2015 11:38a [facility] Cecilia Rocha, 29978 S72.002A Assoc,pc Hospitalists LEAD JANITOR E78.2 E03.9 H44.30 Office Visit 11/04/2015 11:37a [facility] Stella Cuadra, 17737 S72.002A Assoc,pc Hospitalists N.P. E03.9 E78.2 H44.30 Office Visit 11/03/2015 11:34a [facility] Stella Cuadra, 41861 S72.002A Assoc,pc Hospitalists N.P. E78.2 E03.9 H44.30 Office Visit 08/04/2015 9:20a [facility] Medicine - Feroz Sorto, ALEKSANDR 71974 Z01.818 [place] H40.9 Z23 I10 E78.5 E03.9 F17.210 F52.21 M25.562 Office Visit 07/27/2015 11:00a [facility] Oracio Gee M.D. 83481 I10 - [place] E78.5 E03.9 F17.210 F52.21 Office Visit 04/22/2015 11:00a [facility] Medicine Oracio Gee 26331 401.9 - Lynn Fox 272.4 244.1 719.46 Office Visit 11/24/2014 10:00a [facility] Medicine Oracio Gee 91163 401.9 - Lynn Fox 272.4 244.1 V70.0 607.84 305.1 Office Visit 03/23/2014 9:50a [facility] Medicine Grace Perez M.D. 84021 272.4 - [place] 244.1 305.1 715.96 302.72 Office Visit 05/19/2013 11:20a [facility] Medicine Oracio Gee 15486 272.4 - [place] Fox 244.1 401.9 302.72 278.00 Office Visit 03/03/2013 2:00p [facility] Medicine Oracio Gee, 43833 272.4 - [place] Fox 244.1 Office Visit 04/08/2012 11:00a [facility] Medicine Grace Perez M.D. 24979 257.2 - [place] 302.72 796.2 272.4 305.1 Office Visit 03/19/2012 11:00a [facility] Medicine Oracio Gee 87697 244.1 - [place] Fox 272.4 302.72 305.1 Office Visit 12/18/2011 10:20a [facility] Medicine Oracio Gee 02040 244.1 - [place] Fox 272.4 302.72 Office Visit 07/25/2011 11:20a DO Not Use Logistics Intern AT Oracio Gee M.D. 65708 244.1 [facility] 272.4 311 302.72 Office Visit 06/08/2011 2:00p [facility] Sadi Ayoub M.D. 12877 716.96 C.M.A. Office Visit 05/09/2011 11:40a DO Not Use Logistics Intern AT Oracio Gee, 01190 717.2 Kelly MarkDCesar 311 Office Visit 04/11/2011 11:40a DO Not Use Logistics Intern AT Oracio Gee M.D. 94712 244.1 [place] 285.8 717.5 305.1 272.4 311 Office Visit 01/10/2011 1:00p DO Not Use Logistics Intern AT Oracio Gee M.D. 66186 244.1 [facility] V72.62 365.9 285.8 302.72 V70.0 305.1 Office Visit 12/20/2010 1:40p DO Not Use Logistics Intern AT Oracio Gee M.D. 51225 244.1 [facility] Office Visit 10/02/2010 9:20a DO Not Use Logistics Intern AT Oracio Gee M.D. 76077 244.1 [facility] 365.9 V72.62 717.5 Plan of Care Future Appointment(s):07/07/2018 1:00 pm - Surya Posey M.D. at [facility]05/23/2018 10:00 am - Oracio Gee M.D. at [facility] Medicine - [address]03/11/2018 1:30 pm - [facility] 1:30 pm - [facility]ade [facility]/11/2018 1:30 pm - Patt Medeiros M.D. at [facility].03/03/2018 9:45 am - Patt Medeiros M.D. at [facility].04/02/2018 10:00 am - Oracio Gee M.D. at [facility] Medicine - [email or web address]/16/2018 - Veda Uriostegui MDG40.89 Other seizuresFollow up:: [address] Posey 30 minsRecommendations:take all 3 pills of zonisamide at the same time. You can take it in the morning or at night , whatever you want, but don't split the pills up over the day because you're more likely to forget to take them all that way.
--- OUTSIDE RECORDS SUMMARY | 2018-03-11 12:23 | XMS REPORT ---
:1970 External Reference #:[id number] Author Organization [facility] Address [address] [address] Phone [phone] Care Team Providers Name Role Phone Oracio Gee MD Primary Care Physician Unavailable Payers Type Date Identification Numbers Payment Provider Subscriber Medicare Primary Effective: Policy Number: Medicare Julius Medina 2013 [id number] PayID: [id number] [address] [place] [address] Medigap Part B Effective: 2013 Policy Number: Medicaid Julius Medina [id number] PayID: [id number] [address] [place] [address] Commercial Effective: Policy Number: [employer] Julius 2011 [id number] Medicaid Adam Expires: 2013 PayID: [id number] [address] [address] [place] [address] Problems Date Description Provider Status Onset: 07/25/2011 Postablative hypothyroidism Oracio Gee M.D. Active Onset: 07/25/2011 Hyperlipidemia Oracio Gee M.D. Active Onset: 07/25/2011 Depressive disorder Oracio Gee M.D. Active Onset: 01/20/2013 Tobacco user Oracio Gee M.D. Active Onset: 01/20/2013 Essential hypertension Oracio Gee M.D. Active Onset: 05/19/2013 Obesity Oracoi Gee M.D. 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 then 2 tablets per day for 2 weeks then 3 tablets per day Metoprolol 05/31 Active Tablets 25mg 30tab 1 by mouth [place] Succinate ER 24HR s every day Cale Gee states he M.D. is not taking this. Synthroid 11/24 Active Tablets 200mcg 90tab once in in E89.0 s the morning Jazminika, in the empty M.D. stomach Ibuprofen 10/03 Active Tablets 600mg 90tab Take One s Tablet By Marlen, Mouth Twice M.D. Daily as Needed For Severe Pain Latanoprost Active Solution 0.005% 1 gtt both Arleo, /0000 eyes q hs MD Juan Alphagan P 00 Active Solution 0.1% 1 gtt both Arleo, /0000 eyes bid MD Juan Dorzolamide Active Solution 22.3-6.8m 1 gtt both Arleo, HCL/Timolol /0000 g/ml eyes bid MD Juan Maleate Atenolol 08/13 Hx Tablets 25mg 30tab 1 [...] 1 tab by 607.84 s mouth daily Marlen - M.D. 05/18 Atorvastatin 03/23 Hx Tablets 40mg 30tab 1 tab at E78.5 Oracio s bedtime Marlen - M.D. 05/19 Synthroid 03/03 Hx Tablets 175mcg 90tab 1 by mouth 244.1 s every day Joe Perez M.D. 11/24 Atorvastatin 03/03 Hx Tablets 40mg 90tab 1 tab hs 272.4 Masha s Joe Castellanos M.D. 03/23 Cialis 03/03 Hx Tablets 5mg 30tab 1-2 tab by s mouth 1 hour Chris, - before M.Cindi 04/22 as needed Nicoderm CQ 01/20 Hx Patches 14mg/24HR 30uni once daily 305.1 24HR ts Marlen - M.DCesar 03/03 Nicorette 01/20 Hx Gum 4mg 120un [...] 302.72 s before the Chris - sexual M.D. 01/20 activity Nicoderm CQ 03/19 Hx Patches 14mg/24HR 30uni once daily 305.1 24HR ts Joe Gee M.D. 04/08 Nicorelief 03/19 Hx Gum 2mg 120un q 2 hours prn 305.1 Joe Silverio M.DCesar 04/08 Viagra 03/19 Hx Tablets 100mg 10tab use as 302.72 s directed Joe Gee M.D. 04/08 Cialis 03/19 Hx Tablets 5mg 1 by mouth 1 hour before Pachika, - intercourse M.DCesar 03/03 as needed Cialis 12/17 [...] CPT Code Status Date Vaccine Lot # [id number] Given 05/18/2016 Pneumonia Vaccine [id number] Given 08/04/2015 Influenza Virus Vaccine, Quadrivalent, Split, [id number] Preservative Free Vital Signs Date Vital Result Comment 02/10/2018 Height 68.5 inches 5'8.50" Weight 182.00 [...] Test Date Test Result H/L Range Note Lipid Profile (Trig/Chol/HDL) 01/15/2018 Triglycerides 64 mg/dL 1 Cholesterol 231 mg/dL 2 HDL Cholesterol 62.4 mg/dL 3 LDL Cholesterol 156 mg/dL 4 Comp Metabolic Panel 01/15/2018 Sodium 139 mmol/L [...] Egfr Non- 62.5 >60 Egfr 80.4 >60 5 Laboratory test 01/15/2018 TSH (Thyroid Stim Horm) 3.58 mcIU/mL 0.34- 5.60 finding Lipid Profile 05/29/2017 Triglycerides 81 mg/dL 6, 7 (Trig/Chol/HDL) Cholesterol 231 mg/dL 6, 8 HDL Cholesterol 59.5 mg/dL 6, 9 LDL Cholesterol 155 mg/dL 6, 10 Comp Metabolic Panel 05/29/2017 Sodium 139 mmol/L 133-145 6 Potassium 4.1 mmol/L 3.5-5.0 6 Chloride 105 mmol/L 101-111 6 Co2 Carbon Dioxide 30 mmol/L 22-32 6 Anion Gap 4 mmol/L 2-11 6 Glucose 80 mg/dL 70-100 6 Blood Urea Nitrogen 12 mg/dL 6-24 6 Creatinine 1.27 mg/dL High 0.67-1.17 6 BUN/Creatinine Ratio 9.4 8-20 6 Calcium 9.1 mg/dL 8.6-10.3 6 Total Protein 7.2 g/dL 6.4-8.9 6 Albumin 4.3 g/dL 3.2-5.2 6 Globulin 2.9 g/dL 2-4 6 Albumin/Globulin Ratio 1.5 1-3 6 Total Bilirubin 0.80 mg/dL 0.2-1.0 6 Alkaline Phosphatase 89 U/L 34-104 6 Alt 14 U/L 7-52 6 Ast 16 U/L 13-39 6 Egfr Non- 60.3 >60 6 Egfr 77.5 >60 6, 11 Laboratory test 05/29/2017 TSH (Thyroid Stim 3.33 mcIU/mL 0.34-5.60 6, 12 finding Horm) Lipid Profile 12/19/2016 Triglycerides 50 mg/dL 13, 14 (Trig/Chol/HDL) Cholesterol 230 mg/dL 13, 15 HDL Cholesterol 53.8 mg/dL 13, 16 LDL Cholesterol 166 mg/dL 13, 17 Comp Metabolic Panel 12/19/2016 Sodium 138 mmol/L 133-145 13 Potassium 4.3 mmol/L 3.5-5.0 13 Chloride 107 mmol/L 101-111 13 Co2 Carbon Dioxide 27 mmol/L 22-32 13 Anion Gap 4 mmol/L 2-11 13 Glucose 87 mg/dL 70-100 13 Blood Urea Nitrogen 14 mg/dL 6-24 13 Creatinine 1.30 mg/dL High 0.67-1.17 13 BUN/Creatinine Ratio 10.8 8-20 13 Calcium 9.1 mg/dL 8.6-10.3 13 Total Protein 6.9 g/dL 6.4-8.9 13 Albumin 4.2 g/dL 3.2-5.2 13 Globulin 2.7 g/dL 2-4 13 Albumin/Globulin Ratio 1.6 1-3 13 Total Bilirubin 0.50 mg/dL 0.2-1.0 13 Alkaline Phosphatase 83 U/L 34-104 13 Alt 12 U/L 7-52 13 Ast 15 U/L 13-39 13 Egfr Non- 58.9 >60 13 Egfr 75.8 >60 13, 18 Laboratory test 12/19/2016 TSH (Thyroid Stim 3.45 mcIU/mL 0.34-5.60 13, 19 finding Horm) Lipid Profile 08/08/2016 Triglycerides 75 mg/dL 20, 21 (Trig/Chol/HDL) Cholesterol 238 mg/dL 20, 22 HDL Cholesterol 58.9 mg/dL 20, 23 LDL Cholesterol 164 mg/dL 20, 24 Comp Metabolic Panel 05/18/2016 Sodium 138 mmol/L 133-145 25 Potassium 3.9 mmol/L 3.5-5.0 25 Chloride 106 mmol/L 101-111 25 Co2 Carbon Dioxide 26 mmol/L 22-32 25 Anion Gap 6 mmol/L 2-11 25 Glucose 87 mg/dL 70-100 25 Blood Urea Nitrogen 18 mg/dL 6-24 25 Creatinine 1.22 mg/dL High 0.67-1.17 25 BUN/Creatinine Ratio 14.8 8-20 25 Calcium 8.7 mg/dL 8.6-10.3 25 Total Protein 6.7 g/dL 6.4-8.9 25 Albumin 4.0 g/dL 3.2-5.2 25 Globulin 2.7 g/dL 2-4 25 Albumin/Globulin Ratio 1.5 1-3 25 Total Bilirubin 0.80 mg/dL 0.2-1.0 25 Alkaline Phosphatase 79 U/L 34-104 25 Alt 13 U/L 7-52 25 Ast 24 U/L 13-39 25 Egfr Non- 63.4 >60 25 Egfr 81.5 >60 25, 26 Lipid Profile (Trig/Chol/HDL) 05/18/2016 Triglycerides 82 mg/dL 25, 27 Cholesterol 222 mg/dL 25, 28 HDL Cholesterol 56.9 mg/dL 25, 29 LDL Cholesterol 149 mg/dL 25, 30 Laboratory test 05/18/2016 TSH (Thyroid Stim 6.71 mcIU/mL High 0.34-5.60 25, 31 finding Horm) PSA Screening 2.269 ng/mL 0-4.000 25, 32 CBC Auto Diff 02/08/2016 White Blood Count [...] finding 02/08/2016 Troponin-I (TnI) 0.01 ng/mL <0.03 33 CKMB 02/08/2016 CKMB ng/mL 1.6 ng/mL 0.6-6.3 [...] Egfr Non- 63.7 >60 Egfr 81.9 >60 34 Laboratory test finding 02/08/2016 Creatine Kinase(CK) 96 U/L 10-223 Inr/Protime 02/08/2016 Inr 1.02 0.89-1.11 Laboratory test finding 02/08/2016 Partial Thrombo Time 24.0 seconds Low 26.0-36.3 PTT Lactic Acid 3.2 mmol/L High 0.5-2.0 35 Laboratory test 12/16/2015 TSH (Thyroid Stim 6.89 ?IU/mL High 0.34-5.60 36, 37 finding Horm) Lipid Profile 12/16/2015 Triglycerides 101 mg/dL 36, 38 (Trig/Chol/HDL) Cholesterol 216 mg/dL 36, 39 HDL Cholesterol 49.5 mg/dL 36, 40 LDL Cholesterol 146 mg/dL 36, 41 Comp Metabolic Panel 12/16/2015 Sodium 136 mmol/L 133-145 36 Potassium 4.1 mmol/L 3.5-5.0 36 Chloride 105 mmol/L 101-111 36 Co2 Carbon Dioxide 27 mmol/L 22-32 36 Anion Gap 4 mmol/L 2-11 36 Glucose 88 mg/dL 70-100 36 Blood Urea Nitrogen 10 mg/dL 6-24 36 Creatinine 1.11 mg/dL 0.67-1.17 36 BUN/Creatinine Ratio 9.0 8-20 36 Calcium 9.2 mg/dL 8.6-10.3 36 Total Protein 6.9 g/dL 6.4-8.9 36 Albumin 4.1 g/dL 3.2-5.2 36 Globulin 2.8 g/dL 2-4 36 Albumin/Globulin Ratio 1.5 1-3 36 Total Bilirubin 0.70 mg/dL 0.2-1.0 36 Alkaline Phosphatase 130 U/L High 34-104 36 Alt 12 U/L 7-52 36 Ast 14 U/L 13-39 36 Egfr Non- 71.0 >60 36 Egfr 91.3 >60 36, 42 Comp Metabolic Panel 07/27/2015 Sodium 137 mmol/L [...] Egfr Non- 63.1 >60 Egfr 81.1 >60 43 Lipid Profile (Trig/Chol/HDL) 07/27/2015 Triglycerides 77 mg/dL 44 Cholesterol 239 mg/dL 45 HDL Cholesterol 55.2 mg/dL 46 LDL Cholesterol 168 mg/dL 47 Laboratory test finding 07/27/2015 TSH (Thyroid Stim Horm) 2.77 ?IU/mL 0.34-5.60 Lipid Profile 04/19/2015 Triglycerides 77 mg/dL 48 (Trig/Chol/HDL) Cholesterol 228 mg/dL 49 HDL Cholesterol 58.6 mg/dL 50 LDL Cholesterol 154 mg/dL 51 Comp Metabolic Panel 04/19/2015 Sodium 136 mmol/L [...] Egfr Non- 66.8 >60 Egfr 85.9 >60 52 Laboratory test 11/15/2014 TSH (Thyroid 6.60 IU/mL High 0.34-5.60 36, 53 finding Stimulating Horm) Comp Metabolic Panel 11/15/2014 Sodium 137 mmol/L 133-145 36 Potassium 3.9 mmol/L 3.5-5.0 36 Chloride 106 mmol/L 101-111 36 Co2 Carbon Dioxide 25 mmol/L 22-32 36 Anion Gap 6 mmol/L 2-11 36 Glucose 88 mg/dL 70-100 36 Blood Urea Nitrogen 8 mg/dL 6-24 36 Creatinine 1.24 mg/dL High 0.67-1.17 36 BUN/Creatinine Ratio 6.5 Low 8-20 36 Calcium 9.0 mg/dL 8.6-10.3 36 Total Protein 6.8 g/dL 6.4-8.9 36 Albumin 4.2 g/dL 3.2-5.2 36 Globulin 2.6 g/dL 2-4 36 Albumin/Globulin Ratio 1.6 1-3 36 Total Bilirubin 0.80 mg/dL 0.2-1.0 36 Alkaline Phosphatase 94 U/L 34-104 36 Alt 12 U/L 7-52 36 Ast 16 U/L 13-39 36 Egfr Non- 62.8 >60 36 Egfr 80.7 >60 36, 54 Lipid Profile (Trig/Chol/HDL) 11/15/2014 Triglycerides 79 mg/dL 36, 55 Cholesterol 235 mg/dL 36, 56 HDL Cholesterol 55.4 mg/dL 36, 57 LDL Cholesterol 164 mg/dL 36, 58 Laboratory test 11/15/2014 PSA Screening 2.348 ng/mL 0-4.000 36, 59 finding Laboratory test 03/23/2014 TSH (Thyroid 6.12 [...] Egfr Non- 59.7 >60 Egfr 76.8 >60 60 Lipid Profile (Trig/Chol/HDL) 05/19/2013 Triglycerides 98 mg/dL 40-200 Cholesterol 275 mg/dL High Less than 200 HDL Cholesterol 56 mg/dL 40-60 61 Cholesterol/HDL Ratio 4.9 Average High 1-4.44 LDL Cholesterol 199.4 High Less Than 100 62 Laboratory test finding 05/19/2013 TSH (Thyroid Stimulating 5.24 miu/mL 0.34-5.60 Horm) Comp Metabolic Panel 02/06/2013 Sodium 137 mmol/L [...] Egfr Non- 55.1 >60 Egfr 70.8 >60 63 Laboratory test finding 02/06/2013 PSA Screening 2.1 ng/mL 0-4.0 64 Lipid Profile (Trig/Chol/HDL) 02/06/2013 Triglycerides 112 mg/dL 40-200 Cholesterol 293 mg/dL High Less than 200 HDL Cholesterol 52 mg/dL 40-60 65 Cholesterol/HDL Ratio 5.6 Average High 1-4.44 LDL Cholesterol 218.6 mg/dL High Less Than 100 66 Laboratory test finding 02/06/2013 TSH (Thyroid Stimulating 5.32 miu/mL 0.34-5.60 67 Horm) FSH And LH 04/08/2012 FSH 2.26 MIU/ML 68 Lutenizing Hormone 3.51 MIU/ML 69 Laboratory test finding 04/08/2012 Prolactin 6.01 NG/ML 1.0-20.0 TSH 3.77 MIU/ML 0.34-5.60 Thyroxine Free 1.09 ng/dL 0.61-1.24 Testosterone Free & Total 04/08/2012 Free Testosterone 19 ng/dL 9-30 70 Testosterone, Total Bioavail 04/08/2012 Total Testosterone 762 ng/dL 240- 950 71 Bioavailable Testosterone 175 ng/dL 61-213 72 Testosterone Free & Total 03/19/2012 Free Testosterone 37 ng/dL 9-30 73 Total Testosterone 1010 ng/dL 240-950 74 Lipid Profile (Trig/Chol/HDL) 03/19/2012 Triglyceride 73 mg/dL 40-200 Cholesterol 252 mg/dL High Less Than 200 75 High Density Lipoprotein 55 mg/dL 40-60 76 Cholesterol/HDL Ratio 4.58 AVERAGE 1-4.97 Low Density Lipoprotein 182 mg/dL High Less Than 100 77 Laboratory test finding 12/18/2011 Lipase 32 U/L 22-51 Comp Metabolic Panel 12/18/2011 Sodium 137 mmol/L 135-145 Potassium 4.6 mmol/L 3.5-5.0 Chloride 101 mmol/L 101-111 Co2 (Carbon Dioxide) 30.0 mmol/L 22-32 Anion Gap 6.0 mmol/L 2-11 78 Glucose 82 mg/dL 70-100 BUN 11 mg/dL 6-24 Creatinine 1.3 mg/dL 0.50-1.40 One Over Creatinine 0.76 BUN/Creatinine Ratio 8.5 8-20 Calcium 9.1 mg/dL 8.1-9.9 Total Protein 7.1 GM/DL 6.2-8.1 Albumin 4.2 GM/DL 3.6-5.4 Globulin 2.9 GM/DL 2-4 Albumin/Globulin Ratio 1.4 1-3 Bilirubin Total 1.0 mg/dL 0.4-1.5 79 Alkaline Phosphatase 90 U/L 39-117 Alt (SGPT) 30 U/L 17-63 Ast (Sgot) 25 U/L 12-42 eGFR Non- 60.2 > 60 eGFR 77.5 > 60 80 Lipid Panel - [facility] 12/18/2011 CPK (Creatine Kinase) 91 U/L 0-200 Laboratory test finding 12/18/2011 TSH 3.44 MIU/ML 0.34-5.60 Laboratory test finding 04/11/2011 Thyroxine Free 1.19 ng/dL 0.61-1.24 TSH 4.01 MIU/ML 0.34-5.60 Laboratory test finding 03/07/2011 TSH 7.21 MIU/ML High 0.34-5.60 Thyroxine Free 1.13 ng/dL 0.61-1.24 Lipid Profile (Trig/Chol/HDL) 03/07/2011 Triglyceride 90 mg/dL 40-200 Cholesterol 222 mg/dL High Less Than 200 81 High Density Lipoprotein 55 mg/dL 40-60 82 Cholesterol/HDL Ratio 4.04 AVERAGE 1-4.97 Low Density Lipoprotein 149 mg/dL High Less Than 100 83 CBC Auto Diff 01/10/2011 White Blood Count [...] finding 12/20/2010 PSA Screening 1.51 NG/ML 0-4 84 Comp Metabolic Panel 12/20/2010 Sodium 140 mmol/L 135-145 Potassium 3.9 mmol/L 3.5-5.0 Chloride 107 mmol/L 101-111 Co2 (Carbon Dioxide) 28.0 mmol/L 22-32 Anion Gap 5.0 mmol/L 2-11 85 Glucose 58 mg/dL Low 70-100 BUN 11 mg/dL 6-24 Creatinine 1.20 mg/dL 0.50-1.40 One Over Creatinine 0.80 BUN/Creatinine Ratio 9.2 8-20 Calcium 9.2 mg/dL 8.1-9.9 Total Protein 6.9 GM/DL 6.2-8.1 Albumin 4.2 GM/DL 3.6-5.4 Globulin 2.7 GM/DL 2-4 Albumin/Globulin Ratio 1.6 1-3 Bilirubin Total 1.1 mg/dL 0.4-1.5 86 Alkaline Phosphatase 70 U/L 39-117 Alt (SGPT) 19 U/L 17-63 Ast (Sgot) 27 U/L 12-42 eGFR Non- 66.4 > 60 eGFR 85.4 > 60 87 CBC With Electronic Diff 12/20/2010 White Blood [...] 0.1 0-0.6 Abs Basophils 0.1 0-0.2 1 Desirable: <150 Borderline High: 150-199 High: 200-499 Very High: >500 2 Desirable: <200 Borderline High: 200-239 High: >239 3 Low: <40 Desirable: 40-60 High: >60 4 Desirable: <100 Near Optimal: 100-129 Borderline High: 130-159 High: 160-189 Very High: >189 5 Because ethnic data is not always readily [...] 15-29 5 Kidney failure <15 (or dialysis) 6 FASTING 10 HOUR 7 Desirable <150 Borderline high 150-199 High 200-499 Very High >500 8 Desirable <200 Borderline high 200-239 High >239 9 Low <40 Desirable: 40-60 High: >60 10 Desirable: <100 mg/dL Near Optimal: 100-129 mg/dL Borderline High: 130-159 mg/dL High: 160-189 mg/dL Very High: >189 mg/dL 11 Because ethnic data is not always readily [...] 15-29 5 Kidney failure <15 (or dialysis) 12 FASTING 10 HOUR 13 [id number] Desirable <150 Borderline high 150-199 High 200-499 Very High >500 15 Desirable <200 Borderline high 200-239 High >239 16 Low <40 Desirable: 40-60 High: >60 17 Desirable: <100 mg/dL Near Optimal: 100-129 mg/dL Borderline High: 130-159 mg/dL High: 160-189 mg/dL Very High: >189 mg/dL 18 Because ethnic data is not always readily [...] 15-29 5 Kidney failure <15 (or dialysis) 19 [id number] 20 FASTING 10 HOUR 21 Desirable <150 Borderline high 150-199 High 200-499 Very High >500 22 Desirable <200 Borderline high 200-239 High >239 23 Low <40 Desirable: 40-60 High: >60 24 Desirable: <100 mg/dL Near Optimal: 100-129 mg/dL Borderline High: 130-159 mg/dL High: 160-189 mg/dL Very High: >189 mg/dL 25 [id number] 26 Because ethnic data is not always readily [...] 15-29 5 Kidney failure <15 (or dialysis) 27 Desirable <150 Borderline high 150-199 High 200-499 Very High >500 28 Desirable <200 Borderline high 200-239 High >239 29 Low <40 Desirable: 40-60 High: >60 30 Desirable: <100 mg/dL Near Optimal: 100-129 mg/dL Borderline High: 130-159 mg/dL High: 160-189 mg/dL Very High: >189 mg/dL 31 [id number] 32 Serum levels of PSA measured using the Kipp[employer] DXI Hybritech immunoassay should not be interpreted as absolute evidence of the presence or absence of disease. The PSA value should be used in conjunction with other pertinent clinical diagnostic procedures. The values obtained with different assay methods or kits cannot be used interchangeably. 33 Reference Range and Interpretation: TnI (ng/mL) Interpretation Less Than 0.03 ng/mL Not supportive of diagnosis of SC 0.03 - 0.50 ng/mL Indeterminate: suggest serial studies if clinically indicated. Greater than 0.5 ng/mL Consistent with diagnosis of SC 34 Because ethnic data is not always readily [...] 15-29 5 Kidney failure <15 (or dialysis) 35 Critical Result LACT:3.2 Called to [id number] at: 20:53:15 by:[id number] Read back by:[id number] [facility] Severe Sepsis and Septic Shock Management Bundle Measure requires all lactic acids initially measuring >2.0 mmol/L be repeated. 36 FASTING 12 HOUR 37 FASTING 12 HOUR 38 Desirable <150 Borderline high 150-199 High 200-499 Very High >500 39 Desirable <200 Borderline high 200-239 High >239 40 Low <40 Desirable: 40-60 High: >60 41 Desirable: <100 mg/dL Near Optimal: 100-129 mg/dL Borderline High: 130-159 mg/dL High: 160-189 mg/dL Very High: >189 mg/dL 42 Because ethnic data is not always readily [...] 15-29 5 Kidney failure <15 (or dialysis) 43 Because ethnic data is not always readily [...] 15-29 5 Kidney failure <15 (or dialysis) 44 Desirable <150 Borderline high 150-199 High 200-499 Very High >500 45 Desirable <200 Borderline high 200-239 High >239 46 Low <40 Desirable: 40-60 High: >60 47 Desirable: <100 mg/dL Near Optimal: 100-129 mg/dL Borderline High: 130-159 mg/dL High: 160-189 mg/dL Very High: >189 mg/dL 48 Desirable <150 Borderline high 150-199 High 200-499 Very High >500 49 Desirable <200 Borderline high 200-239 High >239 50 Low <40 Desirable: 40-60 High: >60 51 Desirable: <100 mg/dL Near Optimal: 100-129 mg/dL Borderline High: 130-159 mg/dL High: 160-189 mg/dL Very High: >189 mg/dL 52 Because ethnic data is not always readily [...] 15-29 5 Kidney failure <15 (or dialysis) 53 FASTING 12 HOUR 54 Because ethnic data is not always readily [...] 15-29 5 Kidney failure <15 (or dialysis) 55 Desirable <150 Borderline high 150-199 High 200-499 Very High >500 56 Desirable <200 Borderline high 200-239 High >239 57 Low <40 Desirable: 40-60 High: >60 58 Desirable <100 Near Optimal 100-129 Borderline high 130-159 High 160-189 Very High >189 59 Serum levels of PSA measured using the [employer] [place] [employer] DXI Hybritech immunoassay should not be interpreted as absolute evidence of the presence or absence of disease. The PSA value should be used in conjunction with other pertinent clinical diagnostic procedures. The values obtained with different assay methods or kits cannot be used interchangeably. 60 Because ethnic data is not always readily [...] 15-29 5 Kidney failure <15 (or dialysis) 61 HDL Interpretation: Undesirable: High Risk: Less [...] 5 Kidney failure <15 (or dialysis) 64 Serum levels of PSA measured using the Balaji Sarah DXI Hybritech immunoassay should not be interpreted as absolute evidence of the presence or absence of disease. The PSA value should be used in conjunction with other pertinent clinical diagnostic procedures. The values obtained with different assay methods or kits cannot be used interchangeably. 65 HDL Interpretation: Undesirable: High Risk: Less than 40 MG/DL Desirable: Low Risk: Greater than 60 MG/DL 66 LDL Interpretation: Low Risk Optimal Level: LDL Less than 100 MG/DL Near or Above Optimal: LDL 100-129 MG/DL Borderline High Risk: LDL 130-159 MG/DL High Risk: LDL 160-189 MG/DL Very High Risk: LDL Greater than 189 MG/DL 67 FASTING 68 NORMAL RANGE MALES 1 - 20 NORMALLY MENSTRUATING FEMALES - Follicular Phase 3 - 9 - Mid-Cycle Peak 4 - 23 - Luteal Phase 1 - 6 POSTMENOPAUSAL FEMALES 16 - 114 . 69 NORMAL RANGE MALES 2 - 12 NORMALLY MENSTRUATING FEMALES - Follicular Phase 1 - 18 - Mid-Cycle Peak 24 - 105 - Luteal Phase 0.6 - 20 POSTMENOPAUSAL FEMALES 15 - 62 . 70 04/11/12 1517: FREE TEST previously reported as: SEE BELOW ng/dL Testosterone, Total and Free, S was cancelled on 04/10/2012 at 11:41; Test cancelled by RBS rule <[email or web address]> Reason: Test TGRP is cancelled and replaced with Test TTFB due to being ordered with Test TTBS. Test Performed by: [place] [address] [employer]: Kye Murdock III, M.D. 71 04/11/12 1234: TOTAL TEST previously reported as: SEE BELOW ng/dL Testosterone, Total and Bioavail, S was cancelled on 04/10/2012 at 11:41; Test cancelled by RBS rule <[email or web address]> Reason: Test TTBS is cancelled and replaced with Test TTFB due to being ordered with Test TGRP. Test Performed by: [place] [address] [employer]: Kye Murdock III, M.D. 72 04/11/12 1523: BIOAVAIL TEST previously reported as: SEE BELOW ng/dL Testosterone, Total and Bioavail, S was cancelled on 04/10/2012 at 11:41; Test cancelled by RBS rule <[email or web address]> Reason: Test TTBS is cancelled and replaced with Test TTFB due to being ordered with Test TGRP. Test Performed by: [place] [address] [employer]: Kye Murdock III, M.D. Test Performed by: [place] [address] [employer]: Kye Murdock III, M.D. 73 Test Performed by: [place] [address] [employer]: Kye Murdock III, M.D. 74 Test Performed by: [place] [address] [employer]: Kye Murdock III, M.D. 75 CHOLESTEROL INTERPRETATION: Desirable: Less than 200 MG/DL Borderline-High Risk: 200-239 MG/DL High-Risk: 240 MG/DL and over 76 HDL INTERPRETATION: Undesirable: High Risk: Less than 40 MG/DL Desirable: Low Risk: Greater than 60 MG/DL 77 LDL INTERPRETATION: Low Risk Optimal Level: LDL Less than 100 MG/DL Near or Above Optimal: LDL 100-129 MG/DL Borderline High Risk: LDL 130-159 MG/DL High Risk: LDL 160-189 MG/DL Very High Risk: LDL Greater than 189 MG/DL 78 Anion gap measurement may be of limited value in the presence of any alkalosis, especially in a combined acid base disorder. . 79 A metabolite of Naproxen, O-desmethylnaproxen, has been shown to interfere with the Jendrassik-Abner method for measuring total bilirubin. Samples from patients who have taken Naproxen have shown spurious elevation in total bilirubin levels. 80 Because ethnic data is not always readily [...] 15-29 5 Kidney failure <15 (or dialysis) 81 CHOLESTEROL INTERPRETATION: Desirable: Less than 200 MG/DL Borderline-High Risk: 200-239 MG/DL High-Risk: 240 MG/DL and over 82 HDL INTERPRETATION: Undesirable: High Risk: Less than 40 MG/DL Desirable: Low Risk: Greater than 60 MG/DL 83 LDL INTERPRETATION: Low Risk Optimal Level: LDL Less than 100 MG/DL Near or Above Optimal: LDL 100-129 MG/DL Borderline High Risk: LDL 130-159 MG/DL High Risk: LDL 160-189 MG/DL Very High Risk: LDL Greater than 189 MG/DL 84 * SERUM LEVELS OF PSA MEASURED USING THE RECOMY.COM ACCESS HYBRITECH IMMUNOASSAY SHOULD NOT BE INTERPRETED ABSOLUTE EVIDENCE OF THE PRESENCE OR ABSENCE OF DISEASE. THE PSA VALUE SHOULD BE USED IN CONJUNCTION WITH OTHER PERTINENT CLINICAL DIAGNOSTIC PROCEDURES. 85 Anion gap measurement may be of limited value in the presence of any alkalosis, especially in a combined acid base disorder. . 86 A metabolite of Naproxen, O-desmethylnaproxen, has been shown to interfere with the [employer]-Institute method for measuring total bilirubin. Samples from patients who have taken Naproxen have shown spurious elevation in total bilirubin levels. 87 Because ethnic data is not always readily [...] dialysis) Procedures Date CPT Code Description Status 10/29/2017 50352 EEG Recording Awake & Drowsy Completed 02/11/2017 44589 EEG Recording Awake & Drowsy Completed 01/01/2017 26095 EKG Tracing & Interpretation Completed 08/13/2016 83981 EKG Tracing & Interpretation Completed 07/11/2016 74379 ECHO Transthoracic, Real-Time 2D With Doppler And Color Completed Flow 06/20/2016 58270 Treadmill Interp/Report Only Completed 06/20/2016 48827 Stress Test Supervsn W/Out I/R Completed 2016 53740 Treadmill Interp/Report Only Completed 2016 69808 Stress Test Supervsn W/Out I/R Completed 01/27/2016 66709 ECHO Transthoracic, Real-Time 2D With Doppler And Color Completed Flow 01/25/2016 21948 Treadmill Interp/Report Only Completed 01/25/2016 09404 Stress Test Supervsn W/Out I/R Completed 01/04/2016 21126 Mobile Cardiovascular Telemetry Over 24 HR Up To 30 Completed Days 12/27/2015 02339 EKG Tracing & Interpretation Completed 12/18/2015 48925 Holter Monitor Review (24 hr)dr medrano & reynold Completed only 12/14/2015 27618 ECG Monitor/Recording W/Visual Superimposition Scanning Completed 06/08/2011 68051 Xray Knee 3 Views Completed 06/08/2011 03991 Rad Exam; Knee, Ap&L Completed Encounters Type Date Location Provider CPT E/M Dx Office Visit 01/29/2018 [facility] Internal Medicine [place] Gee, 60838 M25.551 10:00a Joe Bailey M.D. Office Visit 01/15/2018 [facility] Internal Medicine [place] Gee 59124 I10 9:40a Joe Bailey M.D. E78.2 E03.9 G40.89 M25.551 M25.561 Office Visit 10/22/2017 11:00a [facility] [place] [address] G40.89 M25.551 Office Visit 07/10/2017 10:20a [facility] Internal [place] Gee 95446 Z00.01 Thompson Bailey M.D. I10 E78.2 E03.9 G40.89 R55 M25.561 F17.210 Office Visit 06/19/2017 10:30a [facility] [address] R55 M25.551 Office Visit 05/29/2017 9:40a [facility] Internal Medicine Oracio Gee M.D. 47512 I10 Joe Bailey E78.5 E03.9 G40.89 Office Visit 02/27/2017 10:30a [facility] [address] R55 Services Of [facility] Office Visit 01/09/2017 3:00p [facility] [place] [address] R55 [facility] Office Visit 01/01/2017 3:20p [facility] Qutaybapryl SCesar 72133 I10 Ruddy Paul E78.5 E03.9 I49.3 Office Visit 12/19/2016 11:20a [facility] Internal Medicine Oracio Gee M.D. 50121 I10 Joe Bailey E78.5 E03.9 I25.10 G40.89 Office Visit 08/13/2016 4:20p [facility] Ghislaine MosquedaCesar Humberto, 99768 I10 MCesarDCesar E78.5 E03.9 I49.3 Q24.8 R94.31 Office Visit 08/08/2016 11:00a [facility] Internal Medicine Oracio Gee M.D. 98540 I10 - Lynn E78.5 E03.9 F17.210 G40.89 R55 Office Visit 05/18/2016 9:00a [facility] Internal [place]acio Gee, 48480 Z00.00 Medicine - Lynn Fox I10 E78.5 E03.9 R55 G40.89 Z12.5 Z23 Office Visit 12/27/2015 2:20p [facility] Bharatmauricio Yris Paul, 77136 R55 Ruddy I47.2 E78.5 E03.9 I10 F17.210 Office Visit 12/23/2015 9:40a [facility] Internal Medicine Oracio Gee M.D. 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 E03.9 E78.2 H44.30 Office Visit 11/03/2015 11:34a [facility] Stella Cuadra, 23500 S72.002A Ass, Hospitalists N.P. E78.2 E03.9 H44.30 Office Visit 08/04/2015 9:20a [facility] Internal Medicine - Feroz Sorto, ALEKSANDR 41931 Z01.818 [place] H40.9 Z23 I10 E78.5 E03.9 F17.210 F52.21 M25.562 Office Visit 07/27/2015 11:00a [facility] Internal Medicine Oracio Gee M.D. 38181 I10 - [place] E78.5 E03.9 F17.210 F52.21 Office Visit 04/22/2015 11:00a [facility] Internal Medicine Or[place] Gee 90268 401.9 - [place] MSaud 272.4 244.1 719.46 Office Visit 11/24/2014 10:00a [facility] Internal Medicine [place] Gee 74827 401.9 - [place] Ruddy 272.4 244.1 V70.0 607.84 305.1 Office Visit 03/23/2014 9:50a [facility] Internal Medicine Grace Perez M.D. 55139 272.4 - [place] 244.1 305.1 715.96 302.72 Office Visit 05/19/2013 11:20a [facility] Internal Medicine [place] Gee 49152 272.4 - [place] M.DCesar 244.1 401.9 302.72 278.00 Office Visit 03/03/2013 2:00p [facility] Internal Medicine Oracio Gee 30550 272.4 - [place] M.DCesar 244.1 Office Visit 04/08/2012 11:00a [facility] Internal Medicine Grace Perez M.D. 29714 257.2 - [place] 302.72 796.2 272.4 305.1 Office Visit 03/19/2012 11:00a [facility] Internal Medicine Or[place] Gee 23225 244.1 - [place] MSaud 272.4 302.72 305.1 Office Visit 12/18/2011 10:20a [facility] Internal Medicine [place] Gee 97216 244.1 - [place] M.D. 272.4 302.72 Office Visit 07/25/2011 11:20a DO Not Use [facility] [place] Gee M.D. 53727 244.1 [place] 272.4 311 302.72 Office Visit 06/08/2011 2:00p [facility] Sadi Ayoub M.D. 04126 716.96 [facility] Office Visit 05/09/2011 11:40a DO Not Use [facility] At Or[place] Gee, 87882 717.2 [facility] MSaud 311 Office Visit 04/11/2011 11:40a DO Not Use [facility] At [place] Gee M.D. 76418 244.1 [place] 285.8 717.5 305.1 272.4 311 Office Visit 01/10/2011 1:00p DO Not Use [facility] At [place] Gee M.D. 50730 244.1 [place] V72.62 365.9 285.8 302.72 V70.0 305.1 Office Visit 12/20/2010 1:40p DO Not Use [facility] At [place] Gee M.D. 28310 244.1 [place] Office Visit 10/02/2010 9:20a DO Not Use [facility] Trimmer At [place] G[place] M.D. 54482 244.1 [place] 365.9 V72.62 717.5 Plan of Care Future Appointment(s):03/03/2018 9:45 am - Patt Medeiros M.D. at [facility]04/02/2018 10:00 am - [place] Gee M.D. at [facility] [place]02/26/2018 9:30 am - Veda Uriostegui MD at [facility] Gegvpf5902/10/2018 - Patt Medeiros M.D.M25.551 Pain in right hipFollow up:Follow up: 7-10 days before pqlwboaV51.11 Unilateral primary osteoarthritis, right hip
[2018-03-11] MEDS ORDERED: ceFAZolin 2 GM PREMIX (*) 2 GM/50 ML BAG IVPB ONE (12:27)
[2018-03-11] MEDS ORDERED: Gabapentin CAP(*) 300 MG ONE (13:19)
[2018-03-11] MEDS ORDERED: Famotidine IV* 10 MG/ML 2 ML (20 mg) ONE (13:19)
[2018-03-11] MEDS: Buffered Lidocaine 0.9% SYRIN* 5 ML/SYR SYRINGE INTRADERM ONE (13:21)
[2018-03-11 13:55] LABS: EGFR Non-African American 63.1 (>60)
[2018-03-11] MEDS ORDERED: Midazolam* 1 MG/ML 5 ML VIAL (5 MG) ONE (14:27)
[2018-03-11] MEDS ORDERED: fentaNYL* 50 MCG/ML 2 ML VIAL (100 MCG VIAL) ONE ×3 (14:51→17:49)
[2018-03-11] MEDS ORDERED: Midazolam* 1 MG/ML 2 ML VIAL (2 MG) ONE (15:28)
[2018-03-11] MEDS ORDERED: fentaNYL* 50 MCG/ML 2 ML VIAL (100 MCG VIAL) IV PRN (16:14)
[2018-03-11] MEDS ORDERED: Ondansetron INJ* 2 MG/ML VIAL IV PRN ×2 (16:14→17:02)
[2018-03-11] MEDS ORDERED: HYDROmorphone INJ* 1 MG/ML CARPUJECT SYRINGE IV PRN (16:14)
[2018-03-11] MEDS ORDERED: oxyCODONE/Acetamin 5/325 MG* TAB PO PRN (16:14)
[2018-03-11] MEDS ORDERED: DiMENhydriNATE IV* 50 MG/ML VIAL IV PUSH PRN (16:14)
[2018-03-11] MEDS ORDERED: Naloxone* 0.4 MG/ML 1 ML VIAL IV PRN (16:14)
[2018-03-11] MEDS ORDERED: EPHEDrine (Pressors)* 50 MG/ML VIAL ONE (16:48)
[2018-03-11] MEDS ORDERED: Morphine VIAL* 4 MG/ML VIAL (1 ml vial) IV PRN (17:02)
[2018-03-11] MEDS ORDERED: Acetaminophen TAB* 325 MG PO PRN (17:02)
[2018-03-11] MEDS ORDERED: Magnesium Hydroxide LIQ* 30 ML UDC PO PRN (17:02)
[2018-03-11] MEDS ORDERED: Bisacodyl SUPP* 10 MG SUPP PR PRN (17:02)
[2018-03-11] MEDS ORDERED: Cyclobenzaprine TAB* 10 MG PO PRN (17:02)
[2018-03-11] MEDS ORDERED: diPHENhydraMINE IV* 50 MG/ML 1 ml VIAL (BENADRYL) IV PRN (17:02)
--- NOTE | 2018-03-11 17:49 | RAD ---
HISTORY: Status post right hip arthroplasty COMPARISONS: January 15, 2013 VIEWS: 3, Frontal view of the pelvis with frontal and crosstable lateral views of the right hip FINDINGS: BONE DENSITY: Normal. BONES: The patient is status post bilateral hip arthroplasty. On the right, there is no hardware failure or osteolysis. JOINTS: The patient is status post bilateral hip arthroplasty. ALIGNMENT: There is no dislocation. SOFT TISSUES: Unremarkable. OTHER FINDINGS: None. IMPRESSION: STATUS POST BILATERAL HIP ARTHROPLASTY.
--- NOTE | 2018-03-11 17:50 | RAD ---
HISTORY: Total hip replacement COMPARISONS: January 15, 2018 VIEWS: 1, portable intraoperative view of the lower pelvis to hip arthroplasty FINDINGS: Limited portable intraoperative view of the lower pelvis during hip arthroplasty demonstrates bilateral hip arthroplasty. There is a temporary femoral sizing component on the right. IMPRESSION: LIMITED PORTABLE INTRAOPERATIVE VIEW OF THE LOWER PELVIS TO HIP ARTHROPLASTY
[2018-03-11] MEDS ORDERED: oxyCODONE/Acetamin 5/325 MG* TAB ONE (20:38)
[2018-03-11] MEDS: oxyCODONE/Acetamin 5/325 MG* TAB PO PRN (20:39)
[2018-03-11] MEDS ORDERED: Morphine VIAL* 4 MG/ML VIAL (1 ml vial) IV ONE (20:54)
[2018-03-11] MEDS ORDERED: CMCS: Dorzolamide 2% OPTH (NF) 10 ML BTL BOTH EYES SCH (21:00)
[2018-03-11] MEDS ORDERED: Brimonidine P 0.1%(NF) 1 DROP BTL BOTH EYES SCH (21:00)
[2018-03-11] MEDS ORDERED: Warfarin TAB(*) 6 MG PO ONE (21:30)
[2018-03-11] MEDS: Docusate CAP* 100 MG PO SCH (21:54)
[2018-03-11] MEDS: Magnesium Hydroxide LIQ* 30 ML UDC PO SCH (21:54)
[2018-03-11] MEDS ORDERED: CMCS: Brimonidine P 0.1%(NF) 1 DROP BTL BOTH EYES SCH (22:00)
[2018-03-11] MEDS ORDERED: Ketorolac INJ* 30 MG/ML 1 ML VIAL IV PUSH ONE (22:15)
[2018-03-11] MEDS ORDERED: PTO: Brimonidine P 0.1%(NF) 1 DROP BTL BOTH EYES SCH (22:16)
[2018-03-11] MEDS ORDERED: PTO: Dorzolamide 2% OPTH (NF) 10 ML BTL BOTH EYES SCH (22:21)
[2018-03-11] MEDS: oxyCODONE TAB* 5 MG TAB PO PRN (22:32)
[2018-03-11] MEDS: PTO: Brimonidine P 0.1%(NF) 1 DROP BTL BOTH EYES SCH ×3 (22:35→22:49)
[2018-03-11] MEDS: PTO: Dorzolamide 2% OPTH (NF) 10 ML BTL BOTH EYES SCH ×2 (22:36→22:45)
[2018-03-11] MEDS: ceFAZolin 1 GM in Dextrose (*) 1 GM/50 ML BAG IVPB SCH (22:41)
[2018-03-12] MEDS: Buffered Lidocaine 0.9% SYRIN* 5 ML/SYR SYRINGE INTRADERM ONE (00:33)
[2018-03-12] MEDS: oxyCODONE/Acetamin 5/325 MG* TAB PO PRN ×4 (00:58→20:37)
[2018-03-12] MEDS: Latanoprost 0.005%* 2.5 ml BTL BOTH EYES SCH (01:17)
[2018-03-12 05:21] LABS: Hematocrit 33 % (42-52); Hemoglobin 11.4 g/dl (14.0-18.0); Mean Platelet Volume 8.7 um3 (7.4-10.4); Platelet Count 148 10^3/ul (150-450)
[2018-03-12 05:30] LABS: INR 1.07 (0.77-1.02)
[2018-03-12 05:31] LABS: EGFR Non-African American 63.1 (>60)
[2018-03-12] MEDS: oxyCODONE TAB* 5 MG TAB PO PRN (05:36)
[2018-03-12] MEDS: Levothyroxine TAB* 100 MCG TAB PO SCH (05:36)
[2018-03-12] MEDS: ceFAZolin 1 GM in Dextrose (*) 1 GM/50 ML BAG IVPB SCH ×2 (06:22→15:20)
[2018-03-12] MEDS: Vitamin THERAPEUTIC TAB PO SCH (08:29)
[2018-03-12] MEDS: Docusate CAP* 100 MG PO SCH ×2 (08:29→20:37)
[2018-03-12] MEDS: Magnesium Hydroxide LIQ* 30 ML UDC PO SCH ×2 (08:29→20:37)
[2018-03-12] MEDS: PTO: Dorzolamide 2% OPTH (NF) 10 ML BTL BOTH EYES SCH ×2 (08:30→20:45)
[2018-03-12] MEDS: ZONISAMIDE 100 MG PO SCH ×2 (08:34→12:30)
--- NOTE | 2018-03-12 09:44 | PN ---
Progress Note - Progress Note Date of Service: 03/12/18 SOAP: Subjective: []Patient seen OOB in chair. He walked with physical therapy this morning. Right hip pain is well controlled. Denies chest pain, shortness of breath, dizziness, leg numbness. Objective: [] Vital Signs Temp 99.1 F 03/12/18 07:44 Pulse 76 03/12/18 07:44 Resp 18 03/12/18 08:40 BP 94/50 03/12/18 07:44 Pulse Ox 99 03/12/18 07:44 Intake & Output 03/11/18 03/12/18 03/12/18 18:59 06:59 18:59 Intake Total 2400 1700 Output Total 450 850 Balance 1950 850 Weight 178 lb Intake: IV Fluids 2350 980 LR 2300 980 NS 100ML, Cefazolin 2G 50 Oral 50 720 Output: Donovan 250 850 Estimated Blood Loss 200 Laboratory Last Values Hgb 11.4 g/dl (14.0-18.0) L 03/12/18 04:43 Hct 33 % (42-52) L 03/12/18 04:43 Plt Count 148 10^3/ul (150-450) L 03/12/18 04:43 MPV 8.7 um3 (7.4-10.4) 03/12/18 04:43 INR (Anticoag Therapy) 1.07 (0.77-1.02) H 03/12/18 04:43 Sodium 135 mmol/L (139-145) L 03/12/18 04:43 Potassium 3.9 mmol/L (3.5-5.0) 03/12/18 04:43 Chloride 105 mmol/L (101-111) 03/12/18 04:43 Carbon Dioxide 24 mmol/L (22-32) 03/12/18 04:43 Anion Gap 6 mmol/L (2-11) 03/12/18 04:43 BUN 14 mg/dL (6-24) 03/12/18 04:43 Creatinine 1.22 mg/dL (0.67-1.17) H 03/12/18 04:43 Est GFR ( Amer) 81.2 (>60) 03/12/18 04:43 Est GFR (Non-Af Amer) 63.1 (>60) 03/12/18 04:43 BUN/Creatinine Ratio 11.5 (8-20) 03/12/18 04:43 Glucose 124 mg/dL (70-100) H 03/12/18 04:43 Calcium 8.6 mg/dL (8.6-10.3) 03/12/18 04:43 General: Well appearing, NAD RLE: Right hip dressing CDI without surrounding erythema. Thigh is soft. DF/PF intact. Sensation intact throughout RLE. DF/PF intact. DP 2+. Capillary refill less than two seconds distally. BL LE: Calves supple and nontender without erythema, edema or palpable cords. Assessment: []POD 1 SP Right total hip replacement 03/11 Dr Mederios Plan: []WBAT PT/OT. Need for extra assistance discussed with PT/OT Hip precautions Coumadin 6 mg today, lovenox until therapeutic 500 ml LR bolus ordered for low BPs. Requires increased PO intake
[2018-03-12] MEDS: Enoxaparin(*) 30 MG/0.3 ML SYR SUBCUT SCH (11:55)
[2018-03-12] MEDS ORDERED: Warfarin TAB(*) 6 MG PO ONE (17:00)
[2018-03-12] MEDS: PTO: Brimonidine P 0.1%(NF) 1 DROP BTL BOTH EYES SCH (20:45)
[2018-03-13] MEDS: Latanoprost 0.005%* 2.5 ml BTL BOTH EYES SCH (00:19)
--- NOTE | 2018-03-13 00:28 | OP ---
DATE OF OPERATION: 03/11/18 - ROOM #335 DATE OF : 66 SURGEON: Patt Medeiros MD MYSQL DBA: KYLEE Nayak. Mr. Seymour did help throughout the procedure with preparation of the leg, wound retraction, manipulation of the hip, and wound closure. ANESTHESIOLOGIST: Dr. Brown. ANESTHESIA: Spinal. 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 OPERATIVE PROCEDURE: Right total hip arthroplasty. COMPLICATIONS: None. ESTIMATED BLOOD LOSS: 300 cc. SPECIMENS: Femoral head and acetabular reaming sent to Pathology. HARDWARE USED: This is uncemented [employer] total hip hardware. For the cup, a Trident Tritanium hemispherical shell 58F. Two 20-mm screws. Worship gap, 6.5 plate screws were used. An MDM cementless liner 46F. For the stem, an Accolade TMZF size 4 with a 127-degree neck. For the head, a Biolox delta ceramic V40 femoral head, 28 +0. For the polyethylene, a 28/52/46F orthodoxy MDM. BRIEF HISTORY/INDICATION: Mr. Medina is a 47-year-old gentleman with years of increasingly severe right hip pain. He failed conservative treatment with anti - inflammatories, use of cane, pain medication, and physical therapy. 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 The patient elected to undergo right total hip arthroplasty due to continued pain and decreased quality of life. He understood the risks of the procedure included, but were not limited to bleeding , infection, damage to nearby structures, continued pain, need for further surgery, intraoperative fracture, nerve palsy, hardware failure or loosening, dislocation, leg length discrepancy, stroke, heart attack, blood clot, and . He wished to proceed. INTRAOPERATIVE FINDINGS: Intraoperatively, the patient was noted to have severe deformation of the femoral head with subchondral collapse and loss of bone superiorly. He was noted to have extensive osteophyte formation around the acetabulum. He was noted to have deformation and abnormal wear of superolateral and posterior acetabulum. DESCRIPTION OF PROCEDURE: Mr. Medina was identified in the preanesthesia unit. His right lower extremity was marked as the correct operative side. Informed consent was signed and placed in the chart. The patient was taken to the operating room and placed under spinal anesthesia. A Donovan catheter was placed. The patient was placed in the left lateral decubitus position on the peg board and all bony prominences were well padded. Right lower extremity was prepped and draped in the usual sterile fashion. Preop time-out was made to correctly identify the patient's side and site. Appropriate perioperative antibiotics were given within 1 hour of incision. A 12-cm posterior hip incision was made with a 10-blade and carried down to the lateral fascial layer. Lateral fascial layer was incised in line with the skin incision. Charnley retractor was placed. The piriformis and conjoint tendons were identified and elevated off the posterolateral femur using electrocautery. These were tagged with #5 Ethibond. Next, electrocautery was used to make a standard posterolateral capsular flap and this was tagged with #5 Ethibond. The hip was carefully dislocated. The femoral head was extremely deformed. Oscillating saw was used to make a femoral neck cut and the head was removed. The femur was retracted anteriorly. After appropriate placement of retractors, the acetabulum was easily visualized. Long-handled knife was used to remove any remaining labrum from the acetabular rim. The acetabulum was noted to have extensive osteophyte formation. The acetabulum was also noted to be extremely thin along the superolateral and posterior rim due to chronic wear and deformation likely from the abnormal wear of the femoral head. The acetabulum was sequentially reamed up to a size 57. The 57 obtained a bleeding subchondral bone bed. The 57 trial had good fit. Final implant chosen was a 58 Trident Tritanium hemispherical shell. This was impacted into the acetabulum without difficulty. The cup was stable with appropriate anteversion and abduction angle. Two screws were placed in the superoposterior quadrant for extra stability. These were both length 20-mm orthodoxy gap plate screws. An MDM cementless liner 46F was chosen and this was impacted into the acetabulum. Stability of the liner was checked and rechecked and noted to be stable. Next, attention was turned to the preparation of the proximal femur. A canal finder was used to enter the proximal femur. The femur was sequentially broached up to a size 4. The size 4 had appropriate fit with a satisfactory anteversion. A 127 neck trial with a 28 +0 head trial was chosen. The appropriate 46 liner insert was placed and the hip was reduced. The hip was taken through a range of motion and then noted to be stable in all positions. There was appropriate soft tissue tension and leg length. The hip was dislocated. All trials were removed. Final implant chosen was an Accolade TMZF size 4 with a 127-degree neck angle. This was impacted into the femoral canal without difficulty. The stem was stable with appropriate anteversion. A 28 +0 Biolox delta ceramic V40 femoral head with a orthodoxy MDM X3 insert, 28/52/46F was chosen. This was assembled and impacted on to the femoral neck. The hip was reduced and taken through a range of motion. The hip was stable in all positions. There was appropriate soft tissue tension and leg length. The hip was copiously irrigated with sterile saline. Previously tagged capsule and tendons were reapproximated to the posterolateral femur through two trochanteric drill holes. The lateral fascial layer was closed using interrupted #1 Vicryls. The rest of the incision was closed in a layered fashion using 0 and 2-0 Vicryls. The skin was closed using running 3-0 Monocryl and Dermabond. Sterile Adaptic, 4x4s, and paper tape were placed over the incision. The patient's anesthesia was reversed without difficulty. He was taken to the PACU in stable condition. Intended weightbearing will be weightbearing as tolerated with posterior hip precautions. Intended DVT prophylaxis will be Coumadin with a Lovenox bridge. [id number]/[facility] #: [id number] [facility]
[2018-03-13] MEDS: oxyCODONE/Acetamin 5/325 MG* TAB PO PRN ×4 (04:21→21:51)
[2018-03-13] MEDS: Levothyroxine TAB* 100 MCG TAB PO SCH (05:40)
[2018-03-13 05:58] LABS: Hematocrit 30 % (42-52); Hemoglobin 10.4 g/dl (14.0-18.0); Mean Platelet Volume 8.9 um3 (7.4-10.4); Platelet Count 143 10^3/ul (150-450)
[2018-03-13 06:02] LABS: INR 1.34 (0.77-1.02)
[2018-03-13] MEDS: Magnesium Hydroxide LIQ* 30 ML UDC PO SCH ×2 (08:20→21:48)
[2018-03-13] MEDS: Vitamin THERAPEUTIC TAB PO SCH (08:24)
[2018-03-13] MEDS: Docusate CAP* 100 MG PO SCH ×2 (08:24→21:48)
[2018-03-13] MEDS: CMC:Zonisamide (NF) 50 MG CAP PO SCH (08:25)
[2018-03-13] MEDS: PTO: Dorzolamide 2% OPTH (NF) 10 ML BTL BOTH EYES SCH ×2 (08:26→21:53)
--- NOTE | 2018-03-13 09:44 | PN ---
Progress Note - Progress Note Date of Service: 03/13/18 SOAP: Subjective: [] Patient seen at bedside. Right hip pain is well controlled. Denies chest pain , shortness of breath, dizziness, nausea. Agrees to DESTINY. Objective: [] Vital Signs Temp 99.6 F 03/13/18 07:35 Pulse 85 03/13/18 07:35 Resp 18 03/13/18 08:24 BP 113/63 03/13/18 07:35 Pulse Ox 99 03/13/18 08:00 Intake & Output 03/12/18 03/13/18 03/13/18 18:59 06:59 18:59 Intake Total 2674 1550 Output Total 200 2000 200 Balance 2474 -450 -200 Intake: IV Fluids 1499 LR 1449 cefazolin 50 IVPB 55 cefazolin 55 Oral 1120 1550 Output: Urine 200 2000 200 Laboratory Last Values Hgb 10.4 g/dl (14.0-18.0) L 03/13/18 05:15 Hct 30 % (42-52) L 03/13/18 05:15 Plt Count 143 10^3/ul (150-450) L 03/13/18 05:15 MPV 8.9 um3 (7.4-10.4) 03/13/18 05:15 INR (Anticoag Therapy) 1.34 (0.77-1.02) H 03/13/18 05:15 Sodium 135 mmol/L (139-145) L 03/12/18 04:43 Potassium 3.9 mmol/L (3.5-5.0) 03/12/18 04:43 Chloride 105 mmol/L (101-111) 03/12/18 04:43 Carbon Dioxide 24 mmol/L (22-32) 03/12/18 04:43 Anion Gap 6 mmol/L (2-11) 03/12/18 04:43 BUN 14 mg/dL (6-24) 03/12/18 04:43 Creatinine 1.22 mg/dL (0.67-1.17) H 03/12/18 04:43 Est GFR ( Amer) 81.2 (>60) 03/12/18 04:43 Est GFR (Non-Af Amer) 63.1 (>60) 03/12/18 04:43 BUN/Creatinine Ratio 11.5 (8-20) 03/12/18 04:43 Glucose 124 mg/dL (70-100) H 03/12/18 04:43 Calcium 8.6 mg/dL (8.6-10.3) 03/12/18 04:43 General: Well appearing, NAD RLE: Right hip dressing changed, incision CDI without surrounding erythema. Thigh is soft. DF/PF intact. Sensation intact throughout RLE. DF/PF intact. DP 2 +. Capillary refill less than two seconds distally. BL LE: Calves supple and nontender without erythema, edema or palpable cords. Assessment: []POD 2 SP Right total hip replacement 03/11 Dr Medeiros Plan: []WBAT PT/OT Hip precautions Lovenox, coumadin 6 mg today
[2018-03-13] MEDS: oxyCODONE TAB* 5 MG TAB PO PRN (11:53)
[2018-03-13] MEDS: Enoxaparin(*) 30 MG/0.3 ML SYR SUBCUT SCH (11:53)
[2018-03-13] MEDS ORDERED: Warfarin TAB(*) 6 MG PO ONE (17:00)
[2018-03-13] MEDS: PTO: Brimonidine P 0.1%(NF) 1 DROP BTL BOTH EYES SCH (21:53)
[2018-03-14] MEDS: Latanoprost 0.005%* 2.5 ml BTL BOTH EYES SCH (00:41)
[2018-03-14 05:53] LABS: Hematocrit 30 % (42-52); Hemoglobin 10.1 g/dl (14.0-18.0); Platelet Count 149 10^3/ul (150-450)
[2018-03-14 05:59] LABS: INR 1.4 (0.77-1.02)
[2018-03-14] MEDS: Levothyroxine TAB* 100 MCG TAB PO SCH (06:06)
[2018-03-14] MEDS: Magnesium Hydroxide LIQ* 30 ML UDC PO SCH (07:57)
[2018-03-14] MEDS: Vitamin THERAPEUTIC TAB PO SCH (08:22)
[2018-03-14] MEDS: oxyCODONE/Acetamin 5/325 MG* TAB PO PRN (08:22)
[2018-03-14] MEDS: Docusate CAP* 100 MG PO SCH (08:22)
[2018-03-14] MEDS: CMC:Zonisamide (NF) 50 MG CAP PO SCH (08:23)
[2018-03-14] MEDS: PTO: Dorzolamide 2% OPTH (NF) 10 ML BTL BOTH EYES SCH (08:23)
--- NOTE | 2018-03-14 11:24 | PN ---
Progress Note - Progress Note Date of Service: 03/14/18 SOAP: Subjective: 47 y/o male s/p R ASIM by Dr. Medeiros, 03/11/2018. Patient reports pain under control, no SOB, chest pain. OK w D/C today. VSS, afebrile overnight. Objective: General- Well appearing, NAD, AO resting in bed comfortably. MSK- RLE- DF/PF = b/l, PT 2+, negative homans sign, no edema, dressing removed, minimal amount serous drainage noted, no induration, erythema. redressed. SITLT. Vital Signs Temp 98.2 F 03/14/18 07:18 Pulse 77 03/14/18 07:18 Resp 18 03/14/18 10:16 BP 113/60 03/14/18 07:18 Pulse Ox 100 03/14/18 08:00 Intake & Output 03/13/18 03/14/18 03/14/18 18:59 06:59 18:59 Intake Total 1060 250 225 Output Total 400 925 0 Balance 660 -675 225 Intake: Oral 1060 250 225 Output: Urine 400 925 0 Assessment: Stable 47 y/o male s/p R ASIM by Dr. Medeiros, 03/11/2018. Plan: - DVT prophylaxis- lovenox, coumadin. Continue coumadin at [facility] - Continue PT/ OT - Follow up with Dr. Medeiros within 10-14 days - H&H - stable - post-op IV ABX - Completed - Continue current pain regimen -D/c to [facility] today. Acetaminophen (Tylenol Tab*) 650 mg PO Q4H PRN PRN Reason: PAIN OR TEMPERATURE Bisacodyl (Dulcolax Supp*) 10 mg MN DAILY PRN PRN Reason: constipation Brimonidine Tartrate (Alphagan P 0.1% (Nf)) 1 drop BOTH EYES 2100 YOSSI Last Admin: 03/13/18 21:53 Dose: 1 drop Cyclobenzaprine HCl (Flexeril Tab*) 5 mg PO TID PRN PRN Reason: SPASMS Last Admin: 03/11/18 21:54 Dose: 5 mg Diphenhydramine HCl (Benadryl Iv*) 25 mg IV Q6H PRN PRN Reason: itching Docusate Sodium (Colace Cap*) 100 mg PO BID [facility] Last Admin: 03/14/18 08:22 Dose: 100 mg Dorzolamide HCl (Trusopt 2% Opth (Nf)) 1 drop BOTH EYES 0900,2100 [facility] PRN Reason: Protocol Last Admin: 03/14/18 08:23 Dose: 1 drop Enoxaparin Sodium (Lovenox(*)) 30 mg SUBCUT Q24H [facility] Last Admin: 03/13/18 11:53 Dose: 30 mg Lactated Ringer's (Lactated Ringers 1000 Ml Bag*) 1,000 mls @ 100 mls/hr IV PER RATE [facility] Last Admin: 03/12/18 12:31 Dose: 100 mls/hr Lactulose (Lactulose*) 30 ml PO Q6H PRN PRN Reason: constipation Latanoprost (Xalatan 0.005%*) 1 drop BOTH EYES 0000 [facility] Last Admin: 03/14/18 00:41 Dose: 1 drop Levothyroxine Sodium (Synthroid Tab*) 100 mcg PO 0600 [facility] Last Admin: 03/14/18 06:06 Dose: 100 mcg Magnesium Hydroxide (Milk Of Magnesia Liq*) 30 ml PO BID [facility] Last Admin: 03/14/18 07:57 Dose: Not Given Magnesium Hydroxide (Milk Of Magnesia Liq*) 30 ml PO Q6H PRN PRN Reason: constipation Morphine Sulfate (Morphine Vial*) 2 mg IV Q2H PRN PRN Reason: PAIN Multivitamins (Theragran Tab*) 1 tab PO DAILY [facility] Last Admin: 03/14/18 08:22 Dose: 1 tab Ondansetron HCl (Zofran Inj*) 4 mg IV Q6H PRN PRN Reason: nausea Oxycodone HCl (Roxycodone Tab*) 10 mg PO Q4H PRN PRN Reason: PAIN - SEVERE Last Admin: 03/13/18 11:53 Dose: 10 mg Oxycodone/Acetaminophen (Percocet 5/325 Tab*) 2 tab PO Q4H PRN PRN Reason: PAIN Last Admin: 03/14/18 08:22 Dose: 2 tab Oxycodone/Acetaminophen (Percocet 5/325 Tab*) 1 tab PO Q4H PRN PRN Reason: PAIN Last Admin: 03/13/18 21:51 Dose: 1 tab Pharmacy Profile Note (Coumadin Daily Reminder*) 1 note FOLLOW UP 1700 [facility] Last Admin: 03/13/18 15:35 Dose: 1 note Zonisamide (Zonegran (Nf)) 300 mg PO [facility] Last Admin: 03/14/18 08:23 Dose: 300 mg
[2018-03-14] MEDS: Enoxaparin(*) 30 MG/0.3 ML SYR SUBCUT SCH (12:19)
[2018-03-14] MEDS: oxyCODONE TAB* 5 MG TAB PO PRN (12:19)
[2018-03-14 12:23] VITALS: BP 114/59
--- NOTE | 2018-03-14 12:26 | DS ---
AMENDED REPORT NOW INCLUDES COSIGNER DESIGNATION - ESIGNED BEFORE ADJUSTMENT DATE OF ADMISSION: 03/11/2018. DATE OF DISCHARGE: 03/14/2018. ATTENDING PHYSICIAN: Dr. Patt Medeiros * (dictated by KYLEE Hernández). CHIEF COMPLAINT: 1. Right hip pain. 2. Hypertension. 3. Hypothyroidism. 4. Mitral valve insufficiency. 5. Seizure disorder. 6. Legally blind. 7. History of TN. 8. Elevated cholesterol. DISCHARGE DIAGNOSES: 1. Right total hip arthroplasty. 2. Hypertension. 3. Hypothyroidism. 4. History of mitral valve insufficiency. 5. History of seizure disorder. 6. Legally blind. 7. History of TN. 8. History of elevated cholesterol. PROCEDURE: Right total hip arthroplasty. CONSULTATIONS: 1. Physical Therapy. 2. Occupational Therapy. BRIEF HISTORY: Mr. Medina is a very pleasant, 47-year-old gentleman with a history of avascular necrosis of the right hip with severe right hip pain who failed conservative treatment and elected to undergo a right total hip arthroplasty on 03/11/[address] Patt Medeiros. HOSPITAL COURSE: The patient was admitted to [facility] on 2017 where he underwent a right total hip arthroplasty with no complications and an estimated blood loss of [address] Patt Medeiros. Postoperatively, the patient recovered on the Surgical Short Stay Unit. His Donovan was removed on postoperative day two and he was voiding on his own without difficulty. He advanced to a regular diet. His pain was controlled with p.o. Percocet adequately with no side effects. His labs and vital signs remained stable. He was able to bear weight on the right lower extremity and advanced appropriately with physical therapy and occupational therapy. His DVT prophylaxis was managed with Lovenox and Coumadin until he reached a therapeutic INR. By postoperative day three, he was orthopedically and medically stable for discharge to [facility] for continued rehabilitation services. PHYSICAL EXAMINATION: General: Well-appearing, no acute distress, alert and oriented, resting in bed comfortably. Vital signs: 98.2 temperature, pulse rate 77, respirations 17, oxygen saturation 100 percent on room air, blood pressure 113/60. Examination of the right lower extremity shows the surgical incision on the posterior aspect of the hip that is benign without erythema or induration. A small amount of serous drainage dried was noticed on the gauze area, was redressed without difficulty. Positive dorsiflexion and plantarflexion equal bilaterally. Posterior tibial pulses 2+. Negative Romy' s sign. Sensation intact to light touch. LABORATORY DATA ON THE DATE OF DISCHARGE: H and H of 10.1 and 30 with an INR of 1.40. DISCHARGE MEDICATIONS: 1. Tylenol 650 mg p.o. q.4 hours prn, not to exceed more than 4,000 mg per day. 2. Alphagan one drop both eyes at bedtime 0.1%. 3. Colace 100 mg p.o. b.i.d. 4. Trusopt 2% ophthalmic drops one drop both eyes b.i.d. 5. Xalatan 0.005% one drop both eyes q.a.m. 6. Synthroid 100 mcg p.o. q.a.m. 7. Oxycodone/acetaminophen 5/325 one-half to two tablets every 4 hours as needed for pain. 8. Zonegran 300 mg p.o. q.a.m. 9. Coumadin 2 mg tablets daily at 5:00 p.m. per physician's instructions. CONDITION ON DISCHARGE: Stable. DISCHARGE INSTRUCTIONS: Mr. Medina is a very pleasant, 47-year-old gentleman postoperative day three, status post a right total hip arthroplasty which was uncomplicated. He is orthopedically and medically stable for discharge to go to [facility]. His labs and vital signs are stable. He will restart his home medications. He will take 8 mg of Coumadin on March 14, 6 mg on March 15, and 6 mg on March 16 with an INR check on March 17. He will have INR draws on Mondays and . He will remain weightbearing as tolerated on the right lower extremity and have physical therapy per group home protocol. He will have Percocet as needed for pain control and take Colace for constipation. He will follow-up with Dr. Medeiros in approximately ten days for incision check and suture removal. He was instructed to go immediately to the ER should be develop chest pain or shortness of breath and to call the office with any fever, increasing pain, redness, or decreased ambulation. [place], [place] [id number]/[facility] #: [id number] [facility]
== END 2018-03-14 13:26 | DRG 470 ==
LOC: AA 12:09 → SSU 19:29
PROVIDERS: ADMIT Orthopaedic Surgery Adult Reconstructive Orthopaedic Surgery; ATTEND Orthopaedic Surgery Adult Reconstructive Orthopaedic Surgery
PROC: 0SR904A Replacement of Right Hip Joint with Ceramic on Polyethylene Synthetic Substitute, Uncemented, Open Approach (ICD-10-PCS; principal; 2018-03-11 14:30)
DX: M16.11 Unilateral primary osteoarthritis, right hip (principal); M87.851 Other osteonecrosis, right femur; I10 Essential (primary) hypertension; I34.0 Nonrheumatic mitral (valve) insufficiency; G40.909 Epilepsy, unspecified, not intractable, without status epilepticus; H54.8 Legal blindness, as defined in USA; E78.00 Pure hypercholesterolemia, unspecified; Z96.642 Presence of left artificial hip joint; E89.0 Postprocedural hypothyroidism; F17.210 Nicotine dependence, cigarettes, uncomplicated; E78.2 Mixed hyperlipidemia; F32.9 Major depressive disorder, single episode, unspecified; M21.851 Other specified acquired deformities of right thigh; M25.751 Osteophyte, right hip; E66.9 Obesity, unspecified; N52.9 Male erectile dysfunction, unspecified; F52.32 Male orgasmic disorder; M17.9 Osteoarthritis of knee, unspecified; H40.9 Unspecified glaucoma; G89.29 Other chronic pain; F41.9 Anxiety disorder, unspecified; Z72.89 Other problems related to lifestyle; Z82.49 Family history of ischemic heart disease and other diseases of the circulatory system; I25.2 Old myocardial infarction; Z79.01 Long term (current) use of anticoagulants; Z82.3 Family history of stroke; Z68.27 Body mass index [BMI] 27.0-27.9, adult; Z56.0 Unemployment, unspecified
CPT/HCPCS: 36415; 80048; 85014; 85018; 85049; 85610; 88304; 88311; A9270-GY; C1713; C1776; G8978-GP-CJ; G8979-GP-CI; J0690; J1650; J1885; J2250; J2270; J3010

== ENCOUNTER 2019-10-27 09:30 | Emergency (ER) | payer MEDICARE, MEDICAID ==
--- NOTE | 2019-10-27 09:57 | ED ---
Altered Mental Status - HPI Summary HPI Summary: This pt is a 49 Y/O M presenting to [facility] by the CAT due to an AMS that occurred while the pt was receiving a routine lab work. He states that he lethargic and confused. He states that he fell to the ground and began drooling with tremors. He states that he lost consciousness during the event. He did not hit his head. He denies any fevers, chills, SOB, headaches, bite bonilla on his tongue or lips. He has no know aggravating or alleviating factors. He states that he has a PMHx of Szs and that his last episode was last week. He was last seen well at 0900 10/27/2019. He describes his prior Szs by stating that he "wakes up in places he doesn't remember getting to." Was followed by Dr. Uriostegui of neurology. MRI and EEG in past. - History Of Current Complaint Chief Complaint: EDAltMentalStatus Stated Complaint: AMS Time Seen by Provider: 10/27/19 09:33 Hx Obtained From: Patient Last Known Well Date: 10/27/2019 Prior To 0900 Onset/Duration: Resolved Severity Initially: Moderate Severity Currently: Moderate Character: Confusion, Lethargy Aggravating Factor(s): Unknown Alleviating Factor(s): Nothing Associated Signs And Symptoms: Positive: Negative - fevers, chills, SOB, headaches, Seizure. Negative: Fever, Headache, Recent Trauma - bite bonilla on his tongue or lips. Related History: Seizure - Allergies/Home Medications Allergies/Adverse Reactions: Allergies Allergy/AdvReac Type Severity Reaction Status Date / Time No Known Allergies Allergy Verified 10/27/19 09:45 Home Medications: Home Medications Cholecalciferol TAB* [Vitamin D TAB*] 50,000 units PO WEEKLY 10/27/19 [History Confirmed 10/27/19] Ibuprofen TAB* [Motrin TAB* 600 MG] 600 mg PO BID PRN 10/27/19 [History Confirmed 10/27/19] Varicella-Zoster Ge/As01b/Pf [Shingrix] 50 mcg IM ONCE 10/27/19 [History Confirmed 10/27/19] PMH/Surg Hx/FS Hx/Imm Hx Previously Healthy: Yes Endocrine/Hematology History: Reports: Hx Thyroid Disease Denies: Hx Diabetes Cardiovascular History: Reports: Hx Angina, Hx Hypercholesterolemia, Hx Hypertension Denies: Hx Coronary Artery Disease, Hx Myocardial Infarction, Hx Pacemaker/ ICD, Hx Valvular Heart Disease Respiratory History: Denies: Hx Asthma, Hx Chronic Obstructive Pulmonary Disease (COPD) GI History: Reports: Other GI Disorders - hernia repair History: Denies: Hx Renal Disease Musculoskeletal History: Reports: Hx Arthritis, Other Musculoskeletal History - ARTHRITIS BILATERAL KNEES Sensory History: Reports: Hx Glaucoma - legally blind, Hx Legally Blind Denies: Hx Cataracts, Hx Contacts or Glasses - LEGALLY BLIND, Hx Hearing Aid Opthamlomology History: Reports: Hx Glaucoma - legally blind, Hx Legally Blind Denies: Hx Cataracts, Hx Contacts or Glasses - LEGALLY BLIND Neurological History: Reports: Hx Seizures - on meds - 6-7 months ago last seizures Psychiatric History: Reports: Hx Depression - PER PT no DX Denies: Hx Panic Disorder - Cancer History Hx Chemotherapy: No Hx Radiation Therapy: No - Surgical History Surgical History: Yes Surgery Procedure, Year, and Place: INGUINAL HERNIA REPAIR-10 YEARS AGO- [facility]. THYROIDECTOMY- [facility]. 2016 - LT HIP REPLACEMENT. RT EYE - 2014 FOR GLAUCOMA W/ [facility] Hx Anesthesia Reactions: No - Immunization History Immunizations Up to Date: Yes Infectious Disease History: No Infectious Disease History: Denies: Traveled Outside the in Last 30 Days - Family History Known Family History: Positive: Hypertension - maternal and paternal - Social History Occupation: Disabled Lives: Alone Alcohol Use: Rare Hx Substance Use: No Substance Use Type: Reports: None Smoking Status (MU): Light Every Day Tobacco Smoker Amount Used/How Often: 1/2 PPD X 30+ YEARS Have You Smoked in the Last Year: Yes Review of Systems Positive: Other - lethargic . Negative: Fever, Chills ENT: Negative - bite bonilla on his tongue or lips. Negative: Shortness Of Breath Negative: Vomiting, Nausea Neurological: Other - POSITIVE: seizure, confusion Positive: Syncope. Negative: Headache All Other Systems Reviewed And Are Negative: Yes Physical Exam - Summary Physical Exam Summary: Constitutional: Well-developed, Well-nourished, Alert. (-) Distressed Skin: Warm, Dry HENT: Normocephalic; Atraumatic, abrasion to upper lip (old) Eyes: Conjunctiva normal Neck: Musculoskeletal ROM normal neck. (-) JVD, (-) Stridor, (-) Nuchal rigidity Cardio: Rhythm regular, rate normal, Heart sounds normal; Intact distal pulses; Radial pulses are 2+ and symmetric. (-) Murmur Pulmonary/Chest wall: Effort normal. (-) Respiratory distress, (-) Wheezes, (-) Rales Abd: Soft, (-) tenderness, (-) Distension, (-) Guarding, (-) Rebound Musculoskeletal: (-) Edema Lymph: (-) Cervical adenopathy Neuro: Alert, Oriented x3. no focal deficits. Psych: Mood and affect Normal Triage Information Reviewed: Yes Vital Signs On Initial Exam: Initial Vitals Temp Pulse Resp BP Pulse Ox 99.1 F 78 22 163/103 99 10/27/19 09:32 10/27/19 09:32 10/27/19 09:32 10/27/19 09:32 10/27/19 09:32 Vital Signs Reviewed: Yes Procedures - Sedation Patient Received Moderate/Deep Sedation with Procedure: No Diagnostics - Vital Signs Vital Signs Temp Pulse Resp BP Pulse Ox 10/27/19 09:32 99.1 F 78 22 163/103 99 - Laboratory Result Diagrams: 10/27/19 09:40 10/27/19 09:40 Lab Statement: Any lab studies that have been ordered have been reviewed, and results considered in the medical decision making process. - EKG 0939 Cardiac Rate: NL - 77 BPM Summary of EKG Findings: An EKG at 0939 reveals normal sinus rhythm at 77 BPM , nml axis, nml intervals. New T wave inversions in leads V4 and V5. No STEMI. New changes compared to EKG from 2016. Dr. Greenfield interpreted this EKG at 0942 10/27/2019. Altered Mental Statu Course/Dx - Course Course Of Treatment: 49 y/o male w hx CKD, possible seizures in past p/w possible seizure like activity today. - on arrival to ED confused which resolved. GCS 15. Possible seizure c/w prior episodes w EEG w/o captured epiliptiform activity. BG 140. - given possible recurrent episodes, neurology consulted recommends 500 keppra in AM, 750 PM. Had MRI w microvascular changes in 2018. - labs notable for trop 0.03 -->0.02, has new TWI on EKG but no complaints of CP. - neuro to see, likely outpatient follow up. Deferring head CT as patient will likely get MRI and had no head trauma - Diagnoses Provider Diagnoses: Seizure - Provider Notifications Discussed Care Of Patient With: Feroz Horne Time Discussed With Above Provider: 10:04 Instructed by Provider To: Other - Dr. Horne, neruology, stated that the pt should start taking Keppra 500 in the morning and Keppra 750 at night. He states that an MARINE ENGINE MACHINIST APPRENTICE will be down to evaluate the pt. MRI will likely be outpatient depending on evaluation. At 1:[address] Horne recommends outpatient MRI and EEG Discharge ED - Sign-Out/Discharge Documenting (check all that apply): Patient Departure - discharge - Discharge Plan Condition: Stable Disposition: HOME Prescriptions: levETIRAcetam TAB* [Keppra TAB*] 500 mg PO BID 30 Days #90 tab Patient Education Materials: Nonepileptic Seizures (ED) Referrals: Feroz Horne MD [Medical Doctor] - 2 Days Additional Instructions: You were seen in the emergency department for a seizure. Please follow-up with a neurologist. Please take a shower and do not take a bath, do not swim alone. Do not drive or operate machinery. Please take keppra 500 mg (one tab) in the AM and 750 mg (1.5 tabs) in the PM and follow-up with your doctor in the next 1- 2 days. Please return to emergency department for continued seizures, or if you 're concerned - Billing Disposition and Condition Condition: STABLE Disposition: Home - Attestation Statements Document Initiated by Garyibe: Yes Documenting Scribe: Aryan Alfred Provider For Whom Keith is Documenting (Include Credential): Gumaro Greenfield MD Scribe Attestation: IAryan, scribed for Gumaro Greenfield MD on 10/27/19 at 1319. Scribe Documentation Reviewed: Yes Provider Attestation: The documentation as recorded by the Aryan raya accurately reflects the service I personally performed and the decisions made by me, Gumaro Greenfield MD Status of Scribe Document: Viewed
[2019-10-27 10:01] LABS: ABS Eosinophils 0.1 10^3/ul (0-0.6); ABS Lymphocytes 1.4 10^3/ul (1.0-4.8); ABS Monocytes 0.5 10^3/ul (0-0.8); ABS Neutrophils 2.2 10^3/ul (1.5-7.7); Eosinophil % 3.2 %; Hematocrit 39 % (42-52); Hemoglobin 13.2 g/dL (14.0-18.0); Lymphocyte % 33.2 %; Mean Corpuscular HGB Conc 34 g/dL (31-36); Mean Corpuscular Hemoglobin 33 pg (27-31); Mean Corpuscular Volume 98 fL (80-94); Mean Platelet Volume 8.6 fL (7.4-10.4); Nucleated Red Blood Cells % 0.1; Platelet Count 200 10^3/uL (150-450); Red Cell Distribution Width 15 % (10-15); White Blood Count 4.2 10^3/uL (3.5-10.8)
[2019-10-27] MEDS ORDERED: levETIRAcetam TAB* 500 MG PO ONE (10:05)
[2019-10-27 10:22] LABS: Albumin 3.9 g/dL (3.2-5.2); Albumin/Globulin Ratio 1.3 (1-3); BUN/Creatinine Ratio 10.1 (8-20); Calcium 8.9 mg/dL (8.6-10.3); EGFR African American 65.2 (>60); EGFR Non-African American 53.9 (>60); Potassium 3.7 mmol/L (3.5-5.0); Total Bilirubin 0.4 mg/dL (0.2-1.0); Total Protein 6.9 g/dL (6.4-8.9)
[2019-10-27 10:33] LABS: Troponin I 0.03 ng/mL (<0.03)
--- OUTSIDE RECORDS SUMMARY | 2019-10-27 11:20 | XMS REPORT | Continuity of Care Document ---
:1970 External Reference #:[id number] Author Name Juan Corado M.D. Address [address] [place] [address] Care Team Providers Name Role Phone Patt Medeiros M.D. - Adult Care Team Information Vascular Nurse [phone] Reconstructive Orthopaedic Surgery Blanka Cody MD/FACP - Internal Care Team Information Vascular Nurse Medicine Problems Active Problems Provider Date Pure hypercholesterolemia Juan Corado M.D. Onset: 12/21/2014 Primary open angle glaucoma Juan Corado M.D. Onset: 03/25/2015 Severe / Advanced / End Stage Glaucoma Juan Corado M.D. Onset: 2014 Bilateral primary open angle glaucoma Juan Corado M.D. Onset: 11/13/2016 Seizure Onset: Social History Type Date Description Comments Sex Unknown ETOH Use Denies alcohol use Tobacco Use Start: Unknown Light tobacco smoker (10 or fewer cigarettes/day) Smoking Status Reviewed: 09/22/19 Light tobacco smoker (10 or fewer cigarettes/day) Allergies, Adverse Reactions, Alerts Description No Known Drug Allergies Medications Active Medications SIG Qnty Indications Ordering Provider Date Travatan Z 1 drop both 15ml H40.11x3 Juan Corado, 07/13/2016 0.004% Solution eyes every M.D. night Alphagan P 1 drop both 10ml Juan Corado, 09/17/2014 0.1% Solution eyes twice M.D. daily Dorzolamide HCL one in drop 10ml Juan Corado, 09/17/2014 2% Solution both eyes twice M.D. daily Ibuprofen Oracio Gee 600mg Tablets M.D. Levothyroxine Sodium Oracio Gee 200mcg M.D. Tablets Immunizations Description No Information Available Vital Signs Description No Information Available Results Description No Information Available Procedures Date Code Description Status 05/11/2019 11871 Visual Field Exam Extended Completed 05/11/2019 78866 Est Patient Intermediate Exam Completed Medical Devices Description No Information Available Encounters Description No Information Available Assessments Date Code Description Provider 09/22/2019 H40.1133 Primary open-angle glaucoma, bilateral, Juan Corado M.D. severe stage 05/11/2019 H40.1133 Primary open-angle glaucoma, bilateral, Juan Corado M.D. severe stage Plan of Treatment Future Appointment(s):01/25/2020 10:45 am - Juan Corado M.D. at Juan Corado MD, 01/25/2020 10:00 am - Visual Field at Juan Corado MD, 2018 - Juan Corado M.D.H40.1133 Primary open-angle glaucoma, bilateral, severe stageComments:Smoking can increase the risk of developing or worsening any eye related disease, as well as affect your overall health. If you are a smoker, we strongly recommend that you quit.If you are not a smoker, we strongly recommend that you do not start. Your glaucoma is stable at this time.Your eye pressure is within an acceptable range, and your testing does not show any further deterioration at this time. Please continue your treatment.Follow up:4 Month Follow Up IOP Check Visual Field, Central 10 OS At your next visit, we are not planning to dilate your eyes. However, if you have any changes in your vision or new symptoms, there are certain situations that require us to dilate your eyes. If Dr. Corado requests any additional testing, that may require extra time. If you have any questions before your next appointment, please call our office at . Functional Status Description No Information Available Mental Status Description No Information Available Referrals Description No Information Available
[2019-10-27 13:35] VITALS: BP 136/76
--- NOTE | 2019-10-27 17:13 | CONS ---
NEUROLOGY CONSULTATION: DATE OF CONSULT: 10/27/19 HISTORY OF PRESENT ILLNESS: Julius is a 49-year-old male who experienced a witnessed seizure while awaiting lab work in the main campus lab today. I spoke with Roopa Downey NP, who was present during CAT response and spoke to an employee witness. According to label remover, Julius became confused and dazed while talking with a label remover. He stood up and was noted to be drooling, foaming at the mouth and began shaking. He was lowered to the ground and the CAT was called. He was brought to the ED upon arrival was noted to still be confused, but his speech became more coherent shortly after arriving to the ED. I met Julius in the ED. He was lying on the stretcher. He was unable to provide a clear seizure history. He stated that his first seizure occurred in 2016 and confirmed that he had been seen by a neurologist in the past. He doesn 't recall the neurologists name and cannot confirm when asked, if he remember's seeing Dr. Uriostegui. He recalls taking a prescribed seizure medication for a few weeks and then stopping it because he did not think he needed it. He cannot tell me the name of the AED that he was on and cannot confirm the name when asked if he remembers being prescribed Zonisamide. He reports that decided to stop his AED because his episodes occurred very infrequently, maybe once a year or every few months and that prior to today's episode, he hadn't had any further convulsive episodes where he woke up on the floor having sustained an injury like he had in 2016 when he injured his hip. He states a couple of months ago a friend told him that he had an episode in which he was "out of it" for about 20 seconds, he did not fall over. He says those episodes occur a couple times a month, or every couple of months and so history is unclear. . Julius was last seen in our office by Dr. Uriostegui on 02/26/18. He was being followed by and eventually treated with AED for similar episodes since December of 2016 for loss of consciousness with generalized shaking. During that time, he had an MRI in February of 2017 that showed minor microvascular changes and a normal EEG in 2016. On 10/29/17, he had an EEG that showed some mild left temporal slowing, but no epileptiform discharges. Julius lives alone. He has no clear family history of seizures. He is legally blind due to macular degeneration and does not drive. He states that he can see faces, but not clearly, he predominantly recognizes voice. PAST MEDICAL HISTORY: Positive for thyroid disease, angina, hypercholesterolemia, hypertension, glaucoma and is legally blind, seizures, and depression FAMILY HISTORY: Negative for seizures. Positive for Hypertension SOCIAL HISTORY: He is a current smoker. He lives alone but states he has friends that come in and check on him. He does not drive. ALLERGIES: NKDA CURRENT MEDS: Vitamin D 50,000 u/wk, Ibuprofen BID PRN PHYSICAL EXAM: His vital signs were blood pressure 136/76, temp 97.5, pulse rate 72, respiratory rate 14, O2 sat 98% on room air. On physical exam, he was alert and oriented x4. He was cooperative with exam, though he was not a good historian due to repeating himself often, and frequently re-directing conversation to his hip replacements and torn meniscus of left knee during taking of seizure history. He is normocephalic. His pupils were equally round and reactive to light. Heart rate was regular with out murmurs. Lungs were clear. He had a supportive wrap around his left knee for a torn meniscus. Skin was otherwise intact, except for a small burn on his lip sustained while smoking. Abdomen was round and soft. He is well dressed, well groomed. Cranial nerve exam was slightly impaired due to his glaucoma. His vision is very impaired and he had a difficult time following my finger through all alvarenga of gaze, though during this exam, I did witness him direct his eyes through most directions. He was not able to follow my finger smoothly. No nystagmus was noted in the far visual alvarenga. Cranial nerves V through XII were intact. Motor exam demonstrated normal strength and tone though lower extremity exam was limited due to patient's sore left knee and hips. No pronator drift. Reflexes to the upper extremities are symmetric and intact. Sensory exam is intact to soft touch to bilateral upper and lower extremities and to both sides of the face. Finger-to- nose testing was not performed as his vision was too impaired. He uses a cane to ambulate. LABORATORY DATA: Pertinent labs: He had a CBC that showed slightly decreased red blood cell count at 4, 13.2 hemoglobin, hematocrit 39. CMP: His creatinine was 1.39; sodium 137; potassium 3.7; chloride 106; glucose was 138. Troponins 0.03 at 9:40 in the morning and those trended down to 0.02 by 11:46. ASSESSMENT AND PLAN: Julius experienced a witnessed generalized seizure today and has a past history positive for seizures. Plan is to begin an anticonvulsant today. We are going to start Keppra 500 mg in the morning and 750 mg in the evening. Julius has a noted history of depression and Dr. Uriostegui had noted this as the reason for avoiding this medication in the past. Today, Julius denies depression. Discussed side effects of Keppra, especially mood change including depressssion and that he should call our office if he experiences depression or worsening depression. We will have an EEG and MRI done on an outpatient basis and we will follow up with him in our office. [id number]/[facility] #: [id number] MTDD
== END 2019-10-27 13:54 | disposition home or self-care (01) ==
LOC: ED 09:30
DX: R56.9 Unspecified convulsions (principal); R53.83 Other fatigue; R55 Syncope and collapse; H54.8 Legal blindness, as defined in USA; Z96.642 Presence of left artificial hip joint; F17.200 Nicotine dependence, unspecified, uncomplicated; I12.9 Hypertensive chronic kidney disease with stage 1 through stage 4 chronic kidney disease, or unspecified chronic kidney disease; N18.3 Chronic kidney disease, stage 3 (moderate)
CPT/HCPCS: 36415; 80053; 84484; 85025; 93005; 99283; A9270-GY

== ENCOUNTER 2019-12-23 08:59 | Emergency (ER) | payer MEDICARE, MEDICAID ==
--- OUTSIDE RECORDS SUMMARY | 2019-12-23 09:28 | XMS REPORT | Continuity of Care Document ---
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 Onset: 07/25/2011 Hyperlipidemia Oracio Gee M.D. Onset: 07/25/2011 Depressive disorder Oracio Gee M.D. Onset: 07/25/2011 Tobacco user Oracio Gee M.D. Onset: 01/20/2013 Essential hypertension Oracio Gee M.D. Onset: 01/20/2013 Obesity Oracio Gee M.D. Onset: 05/19/2013 Relative impotence Grace Perez M.D. Onset: 03/23/2014 Note: multifactorial Osteoarthritis of knee Grace Perez M.D. Onset: 03/23/2014 Note: patellar arthritis Impotence of organic origin Oracio Gee M.D. Onset: 11/24/2014 Arthralgia of the lower leg Oracio Gee M.D. Onset: 04/22/2015 Psychosexual dysfunction associated with Oracio Gee M.D. Onset: 2014 inhibited libido Postprocedural hypothyroidism Oracio Gee M.D. Onset: 07/27/2015 Knee pain Feroz Sorto NP Onset: 08/04/2015 Hypothyroidism Oracio Gee M.D. Onset: 05/18/2016 Other seizures Vead Uriostegui MD Onset: 01/09/2017 Syncope and collapse Veda Uriostegui MD Onset: 02/27/2017 Arthralgia of the pelvic region and thigh Veda Uriostegui MD Onset: 06/19/2017 Mixed hyperlipidemia Oracio Gee M.D. Onset: 01/15/2018 Localized, primary osteoarthritis of the Pattdomingo Medeiros M.D. Onset: 02/10/2018 pelvic region and thigh Social History Type Date Description Comments Sex Unknown Tobacco Use Start: Unknown currently smokes 1/2 Pack 30 pk yr Daily ETOH Use Occasionally consumes alcohol Recreational Drug Use 2007 Formerly used Cocaine regularly Tobacco Use Start: Unknown Patient is a current smoker, smokes every day Recreational Drug Use 2007 Formerly used Crack Cocaine regularly Tobacco Use Start: Unknown Light tobacco smoker (10 or fewer cigarettes/day) Smoking Status Reviewed: 12/15/19 Light tobacco smoker (10 or fewer cigarettes/day) Exercise Type/Frequency Exercises sporadically Allergies, Adverse Reactions, Alerts Description No Known Drug Allergies Medications Active Medications SIG Qnty Indications Ordering Provider Date Shingrix inject per 2units Z23 Blanka Cody MD 06/09/2019 50mcg/0.5ML protocol Suspension Rec Vitamin D take one capsule 4caps E55.9 Blanka Cody MD 05/15/2019 (Ergocalciferol) by mouth once weekly 47493Nskg Capsules Synthroid once in in the 90tabs E89.0 Blanka Cody MD 11/24/2014 200mcg morning in the Tablets empty stomach Ibuprofen take one tablet 90tabs Blanka Cody MD 10/03/2010 600mg Tablets by mouth twice daily as needed for severe pain Latanoprost 1 gtt both eyes q Juan Corado MD 0.005% hs Solution Alphagan P 1 gtt both eyes Juan Corado MD 0.1% bid Solution Dorzolamide 1 gtt both eyes Juan Corado MD HCL/Timolol Maleate bid 22.3-6.8mg/ml Solution Medications Administered in Office Medication SIG Qnty Indications Ordering Provider Date Depomedrol 40MG KYLEE Jade 05/26/2018 Injection Immunizations CPT Code Status Date Vaccine Reaction Lot # [id number] Given 06/09/2019 Tdap - No immediate 525np Tetanus/Diptheria/Acellular reaction..jh Pertussis 53655 Given 05/18/2016 Pneumonia Vaccine [id number] Given 08/04/2015 Influenza Virus Vaccine, [id number] Quadrivalent, Split, Preservative Free Vital Signs Date Vital Result Comment 12/15/2019 9:17am Height 68 inches 5'8" Weight 188.00 lb Heart Rate 64 /min BP Systolic Sitting 100 mmHg BP Diastolic Sitting 68 mmHg BMI (Body Mass Index) 28.6 kg/m2 06/26/2019 9:41am Height 68 inches 5'8" Weight 189.00 lb Heart Rate 75 /min BP Systolic Sitting 116 mmHg L arm BP Diastolic Sitting 78 mmHg L arm O2 % BldC Oximetry 99 % BMI (Body Mass Index) 28.7 kg/m2 Results Test Acquired Date Facility Test Result H/L Range Note Laboratory test 10/27/2019 [facility] Troponin-I 0.02 ng/mL < 0.[address] (TnI) [place] [address] [phone] CBC Auto Diff 10/27/2019 [facility] White 4.2 10^3/uL Normal 3.5-10.[address] [place] [address] Count [phone] Red Blood Count 4.00 10^6/uL Low 4.18-5.48 Hemoglobin 13.2 g/dL Low 14.0-18.0 Hematocrit 39 % Low 42-52 Mean Corpuscular Volume 98 fL High 80-94 Mean Corpuscular Hemoglobin 33 pg High 27-31 Mean Corpuscular HGB Conc 34 g/dL Normal 31-36 Red Cell Distribution Width 15 % Normal 10-15 Platelet Count 200 10^3/uL Normal 150-450 Mean Platelet Volume 8.6 fL Normal 7.4-10.4 Abs Neutrophils 2.2 10^3/uL Normal 1.5-7.7 Abs Lymphocytes 1.4 10^3/uL Normal 1.0-4.8 Abs Monocytes 0.5 10^3/uL Normal 0-0.8 Abs Eosinophils 0.1 10^3/uL Normal 0-0.6 Abs Basophils 0.0 10^3/uL Normal 0-0.2 Abs Nucleated RBC 0.0 10^3/uL Granulocyte % 52.0 % Lymphocyte % 33.2 % Monocyte % 10.9 % Eosinophil % 3.2 % Basophil % 0.7 % Nucleated Red Blood Cells % 0.1 Comp Metabolic 10/27/2019 [facility] Sodium 137 mmol/L Normal 135-[address] [place] [address] [phone] Potassium 3.7 mmol/L Normal 3.5-5.0 Chloride 106 mmol/L Normal 101-111 Co2 Carbon Dioxide 24 mmol/L Normal 22-32 Anion Gap 7 mmol/L Normal 2-11 Glucose 138 mg/dL High 70-100 Blood Urea Nitrogen 14 mg/dL Normal 6-24 Creatinine 1.39 mg/dL High 0.67-1.17 BUN/Creatinine Ratio 10.1 Normal 8-20 Calcium 8.9 mg/dL Normal 8.6-10.3 Total Protein 6.9 g/dL Normal 6.4-8.9 Albumin 3.9 g/dL Normal 3.2-5.2 Globulin 3.0 g/dL Normal 2-4 Albumin/Globulin Ratio 1.3 Normal 1-3 Total Bilirubin 0.40 mg/dL Normal 0.2-1.0 Alkaline Phosphatase 83 U/L Normal 34-104 Alt 16 U/L Normal 7-52 Ast 16 U/L Normal 13-39 Egfr Non- 53.9 >60 Egfr 65.2 >60 2 Laboratory 10/27/2019 [facility] Troponin-I 0.03 Critical < 0.03 3 test finding [address] (TnI) ng/mL high [place], [place] [id number] [phone] Laboratory 10/27/2019 [facility] Point of Care 151 High 70- 100 4, 5 test finding [address] Glucose mg/[place] [address] [phone] 1 Troponin-I testing on Plasma Separator Tubes (PST) has a known false positive rate of 0.20-0.40%. All positive troponins reflex immediately to secondary confirmatory testing. Using the [employer] 800 Access Immunoassay systems, the 99th percentile upper reference limit was demonstrated to be < 0.03 ng/mL. 2 Because ethnic data is not always readily [...] 15-29 5 Kidney failure <15 (or dialysis) 3 Result TnIDx:0.03 Called to [id number] at: 10:31:35 by:[id number] Read back by: [id number] Troponin-I testing on Plasma Separator Tubes (PST) has a known false positive rate of 0.20-0.40%. All positive troponins reflex immediately to secondary confirmatory testing. Using the [employer] DxI 800 Access Immunoassay systems, the 99th percentile upper reference limit was demonstrated to be < 0.03 ng/mL. 4 TESTING PERFORMED BY KARON LAGUERRE 5 TESTING PERFORMED BY KARON LAGUERRE Procedures Date Code Description Status 11/04/2019 05116 EEG Recording Awake & Drowsy Completed 11/13/2016 [id number] Diabetic Retinal Eye Exam Completed Medical Devices Description No Information Available Encounters Type Date Location Provider Dx Diagnosis Office Visit 10/27/2019 [facility] R56.9 Unspecified 7:00a CLAU [place] convulsions Office Visit 06/26/2019 [facility] Elba Martin N18.3 Chronic kidney 10:00a MD Meli disease, stage 3 (moderate) E03.9 Hypothyroidism, unspecified E78.2 Mixed hyperlipidemia E55.9 Vitamin D deficiency, unspecified E05.00 Thyrotoxicosis w diffuse goiter w/o thyrotoxic crisis Assessments Date Code Description Provider 12/15/2019 R56.9 Unspecified convulsions Feroz Horne MD 11/04/2019 R55 Syncope and collapse Feroz Horne MD 10/27/2019 R56.9 Unspecified convulsions CLAU Negron 06/26/2019 N18.3 Chronic kidney disease, stage 3 (moderate) Elba Garrison MD 06/26/2019 E03.9 Hypothyroidism, unspecified Elba Garrison MD 06/26/2019 E78.2 Mixed hyperlipidemia Elba Garrison MD 06/26/2019 E55.9 Vitamin D deficiency, unspecified Elba Garrison MD 06/26/2019 E05.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 He has a history of depression and we discussed that Keppra can increase depression and he should notify me if he notes any increase in his depression or change in mood. We could resume the zonegran instead which he seemed to tolerate - though it was only for a short while.Advised not to smoke both due to its medical dangers and also physical risk of fire if he had a seizure while smoking.Follow up:5 months with [facility] Functional Status Description No Information Available Mental Status Description No Information Available Referrals Description No Information Available
--- OUTSIDE RECORDS SUMMARY | 2019-12-23 09:28 | XMS REPORT | Continuity of Care Document ---
:1970 External Reference #:[id number] Author Name Feroz Horne MD (transmitted by agent of provider Sivan Baker) Address [address], [place] [address] Care Team Providers Name Role Phone Blanka Cody MD - Internal Medicine Care Team Information Industrial Analyst [phone] Problems Active Problems Provider Date Postablative hypothyroidism [...] Oracio Gee M.D. Onset: 05/18/2016 Other seizures Veda Uriostegui MD Onset: 01/09/2017 Syncope and collapse Veda Uriostegui MD Onset: 02/27/2017 Arthralgia of the pelvic region and thigh Veda Uriostegui MD Onset: 06/19/2017 Mixed hyperlipidemia Oracio Gee M.D. Onset: 01/15/2018 Localized, primary osteoarthritis of the Pattmelina Medeiros M.D. Onset: 02/10/2018 pelvic region and [...] MD 05/15/2019 (Ergocalciferol) by mouth once weekly [id number] Capsules Synthroid once in in the 90tabs [...] Code Status Date Vaccine Reaction Lot # [id number] Given 06/09/2019 Tdap - No immediate 525np Tetanus/Diptheria/Acellular reaction.. Pertussis 85020 Given 05/18/2016 Pneumonia Vaccine [id number] Given 08/04/2015 Influenza Virus Vaccine, [id number] Quadrivalent, [...] Result H/L Range Note Laboratory test 10/27/2019 [facility] Troponin-I 0.02 ng/mL < 0.03 [address] (TnI) [place] [address] [phone] CBC Auto Diff 10/27/2019 [facility] White 4.2 10^3/uL Normal 3.5-10.[address] [place] [address] Count [phone] Red Blood Count 4.00 10^6/uL Low 4.18-5.48 [...] Blood Cells % 0.1 Comp Metabolic 10/27/2019 [facility] Sodium 137 mmol/L Normal 135-[address] [place] [address] [phone] Potassium 3.7 mmol/L Normal 3.5-5.0 Chloride 106 [...] >60 Egfr 65.2 >60 2 Laboratory 10/27/2019 [facility] Troponin-I 0.03 Critical < 0.03 3 test finding [address] (TnI) ng/[place] [address] [phone] Laboratory 10/27/2019 [facility] Point of Care 151 High 70- 100 4, 5 test finding [address] Glucose mg/[place] [address] [phone] 1 Troponin-I testing on Plasma Separator Tubes (PST) has a known false positive rate of 0.20-0.40%. All positive troponins reflex immediately to secondary confirmatory testing. Using the [employer] 800 Access Immunoassay systems, the 99th percentile [...] (or dialysis) 3 Result TnIDx:0.03 Called to [id number] at: 10:31:35 by:[id number] Read back by: [email or web address] Troponin-I testing on Plasma Separator Tubes (PST) has a known false positive rate of 0.20-0.40%. All positive troponins reflex immediately to secondary confirmatory testing. Using the [employer] DxI 800 Access Immunoassay systems, the 99th percentile upper reference limit was demonstrated to be < 0.03 ng/mL. 4 TESTING PERFORMED BY KARON LAGUERRE 5 TESTING PERFORMED BY KARON LAGUERRE Procedures Date Code Description Status 11/04/2019 72807 EEG Recording Awake & Drowsy Completed 11/13/2016 [id number] Diabetic Retinal Eye Exam Completed Medical Devices Description No Information Available Encounters Type Date Location Provider Dx Diagnosis Office Visit 12/15/2019 [facility] Feroz Horne, R56.9 Unspecified 9:45a convulsions Office Visit 10/27/2019 [facility] R56.9 Unspecified 7:00a CLAU [place] convulsions Office Visit 06/26/2019 [facility] Elba Martin N18.3 Chronic kidney 10:00a [...] crisis or storm Plan of Treatment Future Appointment(s):02/26/2020 1:40 pm - Ghislaine Paul M.D. at [facility]05/17/2020 10:00 am - CLAU Negron at [facility]9206/10/2020 3:20 pm - Blanka Cody MD at [facility] Internal Medicine - [facility]12/15/2019 - Feroz Horne, MDR56.9 Unspecified convulsionsComments:Julius has [...]
--- NOTE | 2019-12-23 09:29 | ED ---
Upper Extremity Pain - HPI Summary HPI Summary: Pt. is a 49 y.o male who presents to the ER for injury to 3rd finger that occurred 4 days ago. Pt states he tripped and fell jamming his 3rd digit. No other injuries sustained. Pt. states finger initially was very swollen which is improving but pain persist. Sxs are mild in severity. Bending finger makes sxs worse. nothing makes sxs better. - History of Current Complaint Chief Complaint: EDExtremityUpper Stated Complaint: FINGER INJURY PER PT Time Seen by Provider: 12/23/19 09:08 Hx Obtained From: Patient - Allergies/Home Medications Allergies/Adverse Reactions: Allergies Allergy/AdvReac Type Severity Reaction Status Date / Time No Known Allergies Allergy Verified 10/27/19 09:45 Home Medications: Home Medications Brimonidine P 0.1%(NF) [Alphagan P 0.1% (NF)] 1 drop BOTH EYES BID 08/15/15 [ History Confirmed 12/23/19] Levothyroxine TAB* [Synthroid 100 MCG TAB*] 200 mcg PO QAM 11/03/15 [History Confirmed 12/23/19] Latanoprost 0.005%* [Xalatan 0.005%*] 1 drop BOTH EYES BEDTIME 01/24/16 [ History Confirmed 12/23/19] Cholecalciferol TAB* [Vitamin D TAB*] 50,000 units PO WEEKLY 10/27/19 [History Confirmed 12/23/19] Ibuprofen TAB* [Motrin TAB* 600 MG] 600 mg PO BID PRN 10/27/19 [History Confirmed 12/23/19] Varicella-Zoster Ge/As01b/Pf [Shingrix] 50 mcg IM ONCE 10/27/19 [History Confirmed 12/23/19] Dorzolamide/Timolol OPTH (NF) [Cosopt (NF)] 1 drop BOTH EYES BID 12/23/19 [ History Confirmed 12/23/19] PMH/Surg Hx/FS Hx/Imm Hx Previously Healthy: Yes Endocrine/Hematology History: Reports: Hx Thyroid Disease Denies: Hx Diabetes Cardiovascular History: Reports: Hx Angina, Hx Hypercholesterolemia, Hx Hypertension Denies: Hx Coronary Artery Disease, Hx Myocardial Infarction, Hx Pacemaker/ ICD, Hx Valvular Heart Disease Respiratory History: Denies: Hx Asthma, Hx Chronic Obstructive Pulmonary Disease (COPD) GI History: Reports: Other GI Disorders - hernia repair History: Denies: Hx Renal Disease Musculoskeletal History: Reports: Hx Arthritis, Other Musculoskeletal History - ARTHRITIS BILATERAL KNEES Sensory History: Reports: Hx Glaucoma - legally blind, Hx Legally Blind Denies: Hx Cataracts, Hx Contacts or Glasses - LEGALLY BLIND, Hx Hearing Aid Opthamlomology History: Reports: Hx Glaucoma - legally blind, Hx Legally Blind Denies: Hx Cataracts, Hx Contacts or Glasses - LEGALLY BLIND Neurological History: Reports: Hx Seizures - on meds - 6-7 months ago last seizures Psychiatric History: Reports: Hx Depression - PER PT no DX Denies: Hx Panic Disorder - Cancer History Hx Chemotherapy: No Hx Radiation Therapy: No - Surgical History Surgery Procedure, Year, and Place: INGUINAL HERNIA REPAIR-10 YEARS AGO- [facility]. THYROIDECTOMY- [facility]. 2016 - LT HIP REPLACEMENT. RT EYE - 2014 FOR GLAUCOMA W/ [id number] METAL PER MARIA DOLORES Hx Anesthesia Reactions: No Infectious Disease History: No Infectious Disease History: Denies: Traveled Outside the in Last 30 Days - Family History Known Family History: Positive: Hypertension - maternal and paternal - Social History Occupation: Disabled Lives: With Family Alcohol Use: Rare Hx Substance Use: No Substance Use Type: Reports: None Smoking Status (MU): Light Every Day Tobacco Smoker Amount Used/How Often: 1/2 PPD X 30+ YEARS Have You Smoked in the Last Year: Yes Review of Systems Positive: Other - pain and swelling to left middle digit of hand. Positive: Bruising Neurological/Mental Status: Negative Negative: Weakness, Paresthesia, Numbness All Other Systems Reviewed And Are Negative: Yes Physical Exam Triage Information Reviewed: Yes Vital Signs On Initial Exam: Initial Vitals Temp Pulse Resp BP Pulse Ox 96.9 F 67 18 121/81 97 12/23/19 08:59 12/23/19 08:59 12/23/19 08:59 12/23/19 08:59 12/23/19 08:59 Vital Signs Reviewed: Yes Appearance: Positive: Well-Appearing - Pt. lying in bed in NAD. Skin: Positive: Warm, Dry Head/Face: Positive: Normal Head/Face Inspection Eyes: Positive: Normal, EOMI Neck: Positive: Supple Musculoskeletal: Positive: Other - Mild diffuse edema noted to left 3rd digit with diffuse pain. Almost full ROM with mild pain. No erythema or increased warmth. Neurological: Positive: Normal, CN Intact II-III Psychiatric: Positive: Affect/Mood Appropriate Procedures - Sedation Patient Received Moderate/Deep Sedation with Procedure: No - Splinting Left 3rd Digit Pre-Made Type: finger splint Pre-Proc Neuro Vasc Exam: normal Post-Proc Neuro Vasc Exam: normal Splint Applied by Provider: [facility] - Vital Signs Vital Signs Temp Pulse Resp BP Pulse Ox 12/23/19 08:59 96.9 F 67 18 121/81 97 - Laboratory Lab Statement: Any lab studies that have been ordered have been reviewed, and results considered in the medical decision making process. Course/Dx - Course Course Of Treatment: Patient with isolated finger injury. Finger xray per radiology: 1. PUNCTATE OSSIFIC FRAGMENTS ABOUT THE BASE OF THE LEFT SECOND PROXIMAL PHALANX. (CORRELATE WITH POINT TENDERNESS). 2. NO THIRD DIGIT FRACTURE IDENTIFIED. X-ray are negative for injury to the third digit. Patient has no pain or injury to the base of the second digit. Finger splint placed for comfort. Advised ice elevation. Tylenol or Motrin for pain as directed. Follow-up with PCP if pain persists. Patient understands and agrees with plan. - Diagnoses Differential Diagnosis/HQI/PQRI: Positive: Contusion, Fracture (Closed), Strain , Sprain Provider Diagnoses: Finger sprain Discharge ED - Sign-Out/Discharge Documenting (check all that apply): Patient Departure - Discharge Plan Condition: Good Disposition: HOME Patient Education Materials: Finger Sprain (ED) Referrals: Blanka Cody MD [Primary Care Provider] - Additional Instructions: Please follow up with your PCP for recheck if pain persist Ice and elevate Splint for comfort Tylenol or Motrin for pain as directed Return to ER if symptoms change or worsen - Billing Disposition and Condition Condition: GOOD Disposition: Home - Attestation Statements Provider Attestation: I was available for consult. This patient was seen by the JUANPABLO. The patient was not presented to, seen by, or examined by me. Alvin Regalado MD
[2019-12-23 10:49] VITALS: BP 113/72
== END 2019-12-23 10:47 | disposition home or self-care (01) ==
LOC: ED 08:59
DX: S63.613A Unspecified sprain of left middle finger, initial encounter (principal); W01.0XXA Fall on same level from slipping, tripping and stumbling without subsequent striking against object, initial encounter; Y92.9 Unspecified place or not applicable; E07.9 Disorder of thyroid, unspecified; I10 Essential (primary) hypertension; Z96.642 Presence of left artificial hip joint; F17.200 Nicotine dependence, unspecified, uncomplicated
CPT/HCPCS: 73140; 99282

== ENCOUNTER 2024-04-09 10:12 | Inpatient (IN) ==
[2024-04-09 11:13] LABS: ABS Lymphocytes 0.7 10^3/uL (1.0-4.8); ABS Monocytes 0.7 10^3/uL (0.0-1.1); ABS Neutrophils 6.5 10^3/uL (1.5-7.6); ABS Nucleated RBC 0.02 10^3/ul; Activated Partial Thrombo Time 25.2 seconds (26.0-38.0); Eosinophil % 0.1 %; Hematocrit 34.8 % (38-53); Hemoglobin 10.8 g/dL (13.2-16.3); INR 1.59 (0.83-1.13); Lymphocyte % 9.2 %; Mean Corpuscular Hemoglobin 26.9 pg (27-33); Mean Corpuscular Hgb Conc 31.1 g/dL (31-36); Mean Corpuscular Volume 86.5 fL (80-97); Mean Platelet Volume 9.9 fL (7.5-11.2); Nucleated Red Blood Cells % 0.2 %/100WBC (0.0-0.8); Platelet Count 184 10^3/uL (150-450); Red Blood Count 4.03 10^6/uL (4.06-5.63); Red Cell Distribution Width 19.2 % (12-17)
[2024-04-09 11:48] LABS: Albumin 3.2 g/dL (3.2-5.2); Albumin/Globulin Ratio 0.8 (1-3); C Reactive Protein 123.6 mg/L (<8.01); Calcium 8.5 mg/dL (8.6-10.3); Creatinine, Serum 1.38 mg/dL (0.67-1.17); Globulin 3.9 g/dL (2-4); Magnesium 2.2 mg/dL (1.9-2.7); Potassium 4.7 mmol/L (3.5-5.0); Total Bilirubin 2.6 mg/dL (0.2-1.0); Total Protein 7.1 g/dL (6.4-8.9)
[2024-04-09 11:58] LABS: TSH Ultra Thyroid Stim Horm 13.1 mcIU/mL (0.34-5.60)
[2024-04-09 12:00] LABS: Free T4 0.86 ng/dL (0.61-1.12)
[2024-04-09 12:32] LABS: High Sensitivity Troponin 1 Hr 43 pg/mL (<20)
[2024-04-09 13:22] LABS: PCO2 Arterial 27 mmHg (35-45); PO2 Arterial 85 mmHg (80-100)
[2024-04-09] MEDS: Heparin DRIP 25,000 UNITS BAG 25,000 UNITS/250 ML BAG IV SCH (14:11)
[2024-04-09] MEDS: Heparin 5000 UNITS/ML 1 mL VIAL IV SCH (14:11)
[2024-04-09 14:24] LABS: Urine Appearance Clear; Urine Bacteria Absent /HPF (Absent); Urine Bilirubin Negative (Negative); Urine Blood Negative (Negative); Urine Color Yellow; Urine Glucose Negative (Negative); Urine Ketones Negative (Negative); Urine Nitrite Negative (Negative); Urine Protein 1+ (>=30 mg/dL) (Negative); Urine Red Blood Cell Trace(0-2/hpf) /HPF (0-Trace); Urine Specific Gravity >1.050 (1.002-1.030); Urine Squamous Epithelial Cell Present /HPF (Absent); Urine Urobilinogen 3+ (Negative); Urine White Blood Cell Trace(0-5/hpf) /HPF (0-Trace); Urine pH 5.5 (5.0-8.0)
[2024-04-09 18:00] LABS: HDL Cholesterol 26.7 mg/dL
[2024-04-09] MEDS: cefTRIAXone 1 gm/50 mL D5W 1 GM/50 ML BAG IV SCH (18:19)
[2024-04-09] MEDS: Furosemide 40 mg/4 ml IV VIAL IV SLOW PU ONE (18:19)
[2024-04-09] MEDS: CMCS:Brimonidine P 0.1%(NF) 1 DROP BTL BOTH EYES SCH (22:56)
[2024-04-09] MEDS: Latanoprost 0.005% 2.5 ml BTL BOTH EYES SCH (22:57)
[2024-04-09] MEDS: CMCS:Dorzolamide/Timolol OPTH (NF) 10 ML BOT BOTH EYES SCH (22:57)
[2024-04-09] MEDS: Furosemide 20 mg/2 ml IV VIAL IV ONE (23:03)
[2024-04-10 03:03] LABS: ABS Lymphocytes 0.8 10^3/uL (1.0-4.8); ABS Monocytes 0.8 10^3/uL (0.0-1.1); ABS Neutrophils 6.9 10^3/uL (1.5-7.6); ABS Nucleated RBC 0.01 10^3/ul; Eosinophil % 0.1 %; Hematocrit 33.6 % (38-53); Hemoglobin 10.4 g/dL (13.2-16.3); Lymphocyte % 9.2 %; Mean Corpuscular Hemoglobin 26.3 pg (27-33); Mean Platelet Volume 9.7 fL (7.5-11.2); Nucleated Red Blood Cells % 0.1 %/100WBC (0.0-0.8); Platelet Count 175 10^3/uL (150-450); Red Blood Count 3.96 10^6/uL (4.06-5.63); Red Cell Distribution Width 19.2 % (12-17); White Blood Count 8.5 10^3/uL (3.6-10.2)
[2024-04-10 03:29] LABS: Calcium 7.8 mg/dL (8.6-10.3); Creatinine, Serum 1.44 mg/dL (0.67-1.17); Magnesium 2.1 mg/dL (1.9-2.7); Potassium 4.1 mmol/L (3.5-5.0)
[2024-04-10] MEDS: Iohexol 350 (CONTRAST) 500 ML MDV IV ONE (08:04)
[2024-04-10] MEDS: Sulfur Hexaflouride MICROSPHR 25 MG VIAL IV ONE (08:04)
[2024-04-10] MEDS: Furosemide 40 mg/4 ml IV VIAL IV ONE (10:04)
[2024-04-10] MEDS: Furosemide 40 mg/4 ml IV VIAL IV SLOW PU ONE (10:41)
[2024-04-10] MEDS ORDERED: Sulfur Hexaflouride MICROSPHR 25 MG VIAL ONE (14:16)
[2024-04-11 08:54] LABS: ABS Lymphocytes 0.7 10^3/uL (1.0-4.8); ABS Monocytes 0.9 10^3/uL (0.0-1.1); ABS Neutrophils 6.2 10^3/uL (1.5-7.6); ABS Nucleated RBC 0.02 10^3/ul; Eosinophil % 0.1 %; Hemoglobin 9.5 g/dL (13.2-16.3); Mean Corpuscular Hemoglobin 26.4 pg (27-33); Mean Corpuscular Hgb Conc 30.7 g/dL (31-36); Nucleated Red Blood Cells % 0.2 %/100WBC (0.0-0.8); Platelet Count 169 10^3/uL (150-450); Red Cell Distribution Width 19.1 % (12-17); White Blood Count 7.8 10^3/uL (3.6-10.2)
[2024-04-11 09:08] LABS: Calcium 7.7 mg/dL (8.6-10.3); Creatinine, Serum 1.34 mg/dL (0.67-1.17); Magnesium 2.1 mg/dL (1.9-2.7); Potassium 3.6 mmol/L (3.5-5.0); eGFR CKD-EPI 62.2 (>60)
[2024-04-11] MEDS: Iron Sucrose 200 MG in NS 0.9% 100 ml BAG 100 ML IVPB ONE (10:48)
[2024-04-11] MEDS ORDERED: Ferric Gluconate IV 125 MG in Premix IV 0 ML IV PUSH SCH (11:00)
[2024-04-11] MEDS ORDERED: Iron Sucrose 20 MG/ML 5 ML VIAL IV PUSH SCH (11:00)
[2024-04-11] MEDS: Iron Sucrose 200 MG in NS 0.9% 100 ml IVPB SCH (11:09)
[2024-04-11] MEDS: Furosemide 40 mg/4 ml IV VIAL IV ONE (17:06)
[2024-04-11] MEDS: Potassium EFFERVES 25 meq TAB PO ONE (19:20)
[2024-04-11] MEDS: Enoxaparin 100 MG/ML SYR SUBCUT SCH (21:19)
[2024-04-12 06:37] LABS: Hematocrit 29.9 % (38-53); Hemoglobin 9.2 g/dL (13.2-16.3); Mean Corpuscular Hemoglobin 26.2 pg (27-33); Mean Corpuscular Hgb Conc 30.6 g/dL (31-36); Mean Corpuscular Volume 85.6 fL (80-97); Platelet Count 182 10^3/uL (150-450); Red Blood Count 3.49 10^6/uL (4.06-5.63); Red Cell Distribution Width 19.1 % (12-17); White Blood Count 6.3 10^3/uL (3.6-10.2)
[2024-04-12 06:52] LABS: Calcium 7.8 mg/dL (8.6-10.3); Creatinine, Serum 1.34 mg/dL (0.67-1.17); Magnesium 2.2 mg/dL (1.9-2.7); Phosphorus 3.1 mg/dL (2.5-5.0); eGFR CKD-EPI 62.2 (>60)
[2024-04-12] MEDS: Furosemide 40 mg/4 ml IV VIAL IV SLOW PU ONE (13:13)
[2024-04-13 06:25] LABS: ABS Lymphocytes 0.8 10^3/uL (1.0-4.8); ABS Monocytes 0.7 10^3/uL (0.0-1.1); ABS Neutrophils 4.6 10^3/uL (1.5-7.6); ABS Nucleated RBC 0.03 10^3/ul; Eosinophil % 0.5 %; Hemoglobin 9.3 g/dL (13.2-16.3); Lymphocyte % 13.3 %; Mean Corpuscular Hemoglobin 26.8 pg (27-33); Mean Corpuscular Volume 86.4 fL (80-97); Mean Platelet Volume 9.8 fL (7.5-11.2); Nucleated Red Blood Cells % 0.5 %/100WBC (0.0-0.8); Platelet Count 194 10^3/uL (150-450); Red Blood Count 3.47 10^6/uL (4.06-5.63); Red Cell Distribution Width 18.8 % (12-17); White Blood Count 6.1 10^3/uL (3.6-10.2)
[2024-04-13 06:48] LABS: Calcium 8.1 mg/dL (8.6-10.3); Creatinine, Serum 1.36 mg/dL (0.67-1.17); Magnesium 2.3 mg/dL (1.9-2.7); Potassium 3.9 mmol/L (3.5-5.0); eGFR CKD-EPI 61.1 (>60)
[2024-04-13] MEDS: Potassium Chlor 10 meq TAB PO ONE (08:14)
[2024-04-13 12:11] LABS: Activated Partial Thrombo Time 39.1 seconds (26.0-38.0); INR 1.63 (0.83-1.13)
[2024-04-13 12:30] LABS: Calcium 8.3 mg/dL (8.6-10.3); Creatinine, Serum 1.36 mg/dL (0.67-1.17); Potassium 3.9 mmol/L (3.5-5.0); eGFR CKD-EPI 61.1 (>60)
[2024-04-13 12:56] LABS: ABS Lymphocytes 0.9 10^3/uL (1.0-4.8); ABS Monocytes 0.4 10^3/uL (0.0-1.1); ABS Neutrophils 4.8 10^3/uL (1.5-7.6); ABS Nucleated RBC 0.03 10^3/ul; Eosinophil % 0.2 %; Hematocrit 33.3 % (38-53); Hemoglobin 9.8 g/dL (13.2-16.3); Lymphocyte % 14.8 %; Mean Corpuscular Hgb Conc 29.5 g/dL (31-36); Mean Corpuscular Volume 88.1 fL (80-97); Mean Platelet Volume 9.7 fL (7.5-11.2); Nucleated Red Blood Cells % 0.4 %/100WBC (0.0-0.8); Platelet Count 227 10^3/uL (150-450); Red Blood Count 3.78 10^6/uL (4.06-5.63); Red Cell Distribution Width 19.3 % (12-17); White Blood Count 6.2 10^3/uL (3.6-10.2)
[2024-04-13] MEDS: Furosemide 40 mg/4 ml IV VIAL IV SCH (13:25)
[2024-04-13 17:01] LABS: HIV 4th Generation Nonreactive (Nonreactive)
[2024-04-14] MEDS: Latanoprost 0.005% 2.5 ml BTL BOTH EYES SCH (00:18)
[2024-04-14 07:37] LABS: ABS Monocytes 0.9 10^3/uL (0.0-1.1); ABS Neutrophils 4.5 10^3/uL (1.5-7.6); ABS Nucleated RBC 0.04 10^3/ul; Eosinophil % 0.4 %; Hematocrit 31.4 % (38-53); Hemoglobin 9.7 g/dL (13.2-16.3); Lymphocyte % 15.9 %; Mean Corpuscular Hemoglobin 26.9 pg (27-33); Mean Corpuscular Volume 86.7 fL (80-97); Mean Platelet Volume 10.1 fL (7.5-11.2); Nucleated Red Blood Cells % 0.7 %/100WBC (0.0-0.8); Platelet Count 227 10^3/uL (150-450); Red Blood Count 3.63 10^6/uL (4.06-5.63); White Blood Count 6.5 10^3/uL (3.6-10.2)
[2024-04-14 09:14] LABS: Creatinine, Serum 1.31 mg/dL (0.67-1.17); Magnesium 2.3 mg/dL (1.9-2.7); Potassium 4.3 mmol/L (3.5-5.0); eGFR CKD-EPI 63.9 (>60)
[2024-04-14] MEDS: NS 0.9% 500 ml BAG 500 ML IV ONE (09:27)
[2024-04-14] MEDS: Aspirin EC 81 mg TAB.EC (enteric coated) PO ONE (09:27)
[2024-04-14] MEDS ORDERED: fentaNYL 100 mcg/2 ml 50 MCG/ML VIAL ONE (09:28)
[2024-04-14] MEDS ORDERED: Heparin 2 UNITS/ML 1000 mls 2,000 ML IV ONE (09:28)
[2024-04-14] MEDS ORDERED: Midazolam 5 mg/5 ml VIAL 1 mg/ml 5 ml VIAL (5 mg) ONE (09:28)
[2024-04-14] MEDS ORDERED: Heparin 1,000 UNIT/ML 10 ml (10,000 UNITS) CATHLAB/DIALYSIS ONE (09:28)
[2024-04-14] MEDS ORDERED: VERAPAMIL 2.5 MG/ML 2 ML VIAL ** 5 mg/2 ml ONE (09:28)
[2024-04-14] MEDS ORDERED: nitroGLYCERIN DRIP 25,000 MCG/250 ML BTL ONE (09:29)
[2024-04-14] MEDS ORDERED: Iohexol 350 (CONTRAST) 200 ML MDV IV ONE (09:29)
[2024-04-14] MEDS ORDERED: Lidocaine 1% MPF 5 ML VIAL ONE (09:29)
[2024-04-14 10:54] LABS: POC SO2 42 %
[2024-04-14 10:54] LABS: POC SO2 96 %
[2024-04-14 10:54] LABS: POC SO2 43 %
[2024-04-14] MEDS: Ferric Gluconate IV 125 MG in NS 0.9% 100 ml BAG 100 ML IVPB SCH (11:38)
[2024-04-14] MEDS: NS 0.9% 1000 ml BAG 1,000 ML IV SCH (11:45)
[2024-04-14 17:19] LABS: Kappa Free Light Chain 9.71 mg/dL; Lambda Free Light Chain, S 4.98 mg/dL
[2024-04-14 17:28] VITALS: BP 106/78
[2024-04-17 11:55] LABS: Flag, M-protein Isotype Negative (Negative); Immunoglobulin A (IgA), S 476 mg/dL (61 - 356); Immunoglobulin G (IgG), S 1920 mg/dL (767 - 1590); Immunoglobulin M (IgM), S 48 mg/dL (37 - 286)
== END 2024-04-14 17:55 | disposition short-term general hospital (02) | DRG 286 ==
LOC: EDHOLD 10:12 → ED 10:12 → MEDTELE 19:48
PROVIDERS: ADMIT Internal Medicine; ATTEND Internal Medicine